=== PATIENT | female | born 1935 | race Caucasian/White ===

== ENCOUNTER 2017-04-08 08:18 | Emergency (ER) | payer MEDICARE, SELFPAY ==
[2017-04-08 08:19] VITALS: BP 147/96; PULSE 98; RESP 18; TEMP 36.5; O2SAT 97; BMI 64.5
--- NOTE | 2017-04-08 08:34 | RAD_ITS ---
STUDY: X-RAY - RIGHT SHOULDER REASON FOR EXAM: Female, 82 years old. Fell last night. Pain. TECHNIQUE: 3 view(s) of the shoulder. COMPARISON: None. FINDINGS: Acute complete fracture of the right femoral neck. No other suspicious acute fracture lines. There are radiopaque anchor hooks in the right humeral head from previous rotator cuff repair. Normal visualized pulmonary apex. RAD/Shoulder min 2 Views IMPRESSION: Acute complete fracture of the right humeral neck. Electronically Signed: Bartolo Resendiz MD at 9:12 EST , Service support ,
[2017-04-08] MEDS: fentaNYL 100 MCG/2 ML Ampul 50 MCG IM (08:42)
[2017-04-08] MEDS: Ondansetron ODT 4 MG Tablet PO (08:42)
--- NOTE | 2017-04-08 09:12 | ED.DCSUM_ITS ---
- ER Visit Summary Date of Service: 04/08/17 Chief Complaint: Fall History of Present Illness: The patient is a [address] Miguel Maradiaga III. She is right-hand dominant. She reports that she fell yesterday and injured her right shoulder. States this was a result of tripping over a rug. She has pain that is 9 out of 10 severity. Patient denies any blow to the head or loss of consciousness. No neck, back, wrist, or hip pain. She is not on blood thinners. Physical Examination: Vitals: Stable. Afebrile. Neck: No vertebral tenderness. Full ROM without difficulty. Cleared by NEXUS criteria. Back: No vertebral tenderness. General: A&O x 3. NAD. Cardiovascular exam: Regular rate and rhythm, no murmur, rub or gallop. Respiratory exam: Chest nontender. No crepitus. Clear to auscultation bilaterally. No wheezes or stridor. Abdominal exam: Soft, nontender, nondistended, normal bowel sounds. No pain in RUQ or LUQ specifically. No peritoneal signs. Extremity: Moderate tenderness palpation over her right shoulder. Decreased range of motion secondary to pain. She is neurovascular intact distal to this.. Test Results: X-ray shows a fracture of the surgical neck without dislocation. Emergency Department Course and Treatment: Patient was treated fentanyl IM and Zofran p.o. She was placed in a sling. Treatment Plan: Patient will be discharged instructions to follow-up Dr. Pabon in 1 week for another exam. She will be placed on [place] and Colace at home. Disposition: To home in improved and stable condition. Impression: 1. Fall. 2. Right proximal humerus fracture. This note was generated with [employer] dictation software. It may contain incorrect words, spelling, and punctuation that were not noted in review of the chart prior to signing ED Disposition - Plan for ED Patient: Chief Complaint: Upper Extremity Injury Instructions: ED Fx Shoulder Prescriptions: Hydrocodone Bitart/Apap 5-325 [[place] 5/325] 1 - 2 tablet PO Q4H PRN PRN 5 Days # 20 tablet PRN Reason: Pain Docusate Sodium [Colace] 100 mg PO DAILY #20 capsule Referrals: Scooby Pabon MD [STAFF PHYSICIAN] - 5-7 Days
[2017-04-08 10:20] VITALS: BP 125/77; PULSE 68; RESP 15; O2SAT 98
== END 2017-04-08 10:21 | disposition home or self-care (01) ==
LOC: ED 09:40
PROVIDERS: Emergency Provider Emergency Medicine; Family Provider Family Medicine; PCP Family Medicine
DX: S42.211A Unspecified displaced fracture of surgical neck of right humerus, initial encounter for closed fracture (principal); W18.09XA Striking against other object with subsequent fall, initial encounter; Y93.9 Activity, unspecified; Y92.9 Unspecified place or not applicable; Y99.9 Unspecified external cause status; I10 Essential (primary) hypertension; M19.90 Unspecified osteoarthritis, unspecified site; Z79.899 Other long term (current) drug therapy
CPT/HCPCS: 73030; 96372; 99283

== ENCOUNTER 2017-04-17 06:49 | Inpatient (IN) | payer MEDICARE, SELFPAY ==
[2017-04-17] VITALS (8 sets, daily range): BP systolic 112–136; BP diastolic 56–73; PULSE 61–100; RESP 16–18; TEMP 36.2–36.9; O2SAT 91–97; BMI 31.5; BMI 34.4; BMI 34.5
--- NOTE | 2017-04-17 07:15 | EKG12_ITS ---
Test Reason : PRE OP Blood Pressure : / mmHG Vent. Rate : 068 BPM Atrial Rate : 068 BPM P-R Int : 154 ms QRS Dur : 116 ms QT Int : 390 ms P-R-T Axes : 068 -33 020 degrees QTc Int : 414 ms Sinus rhythm with marked sinus arrhythmia Left axis deviation Left ventricular hypertrophy with QRS widening Abnormal ECG Confirmed by JUDY WELLS, JENI ([id number]), editor continuity and script NAV PURDY ([id number]) on 04/20/2017 2:11:43 PM Referred By: Scooby Pabon Confirmed By:JENI KIM MD
[2017-04-17] MEDS: Acetaminophen 500 MG Tablet 1000 MG PO ×3 (08:02→22:26)
[2017-04-17] MEDS: oxyCODONE HCl Cr 10 MG Tablet PO (08:02)
[2017-04-17] MEDS: Celecoxib 200 MG Capsule 400 MG PO (08:03)
--- NOTE | 2017-04-17 09:00 | SHO_PTH ---
PATIENT: MACIE WALLS LOC: MS3 U#:[id number] AGE/SX: 82/F ROOM: [facility] [place] RE04/17/[address]: Dr. Scooby Pabon MD : [id number] BED: 1 DIS: 04/20/2017 SPEC #: [id number] RECD: 04/17/17 11:44 STATUS: ALESIA REBrianna #: [id number] GIL: 04/17/17 09:[address]: Scooby Pabon DEPT: SURGICAL PATHOLOGY RECD BY: Yan Escamilla ENTERED: 04/17/17 14:20 SP TYPE: HUMERUS OTHR DR: Dr. Miguel Maradiaga III, MD Tissues: Humerus, NOS Procedures: Decalcification bone/plaque Surgery Specimen Level IV HEADER OPERATION: Total shoulder replacement, reverse PRE-OP DIAGNOSIS: Right humeral neck fracture TISSUE SUBMITTED: Right shoulder bone and tissue MICROSCOPIC DIAGNOSIS Right shoulder bone and tissue: Humeral head with focal area of hemorrhage, right humeral neck fracture. SJ:shira 04/20/17 MICROSCOPIC DESCRIPTION Slides are reviewed. GROSS DESCRIPTION Received in fixative is one container labeled with the patient's name and designated right shoulder bone and tissue. The specimen consists of a humeral head measuring 4.5 x 4 x 3 cm. The articular surface shows focal area of erosion. A small amount of soft tissue is noted attached to the humeral head measuring 3 x 2 x 1 cm. The resection margin is irregular and hemorrhagic. Electrical Engineering Teacher sections are submitted in two cassettes as follows: 1 ? humeral head after decalcification, 2 ? soft tissue. / JIE:shira 04/17/17 TC:5 CPT: 75828, 48118
[2017-04-17] MEDS: Cefazolin 2 GM in 0.9% Normal Saline 100 ML IV (09:21)
[2017-04-17 10:09] LABS: M R Staph aureus DNA By PCR Negative (Negative)
[2017-04-17 10:10] LABS: Probe Check PASS; Specimen Processing Control PASS
--- NOTE | 2017-04-17 11:00 | OP.PCM_ITS ---
Report of Operation Date of Procedure: 04/17/17 Pre-Operative Diagnosis: Right 4 part proximal humerus fracture Post-Operative Diagnosis: Right 4 part proximal humerus fracture Surgery/Procedure Performed:: Right Reverse Total shoulder arthroplasty Description of Surgical Findings:: chronic rotator cuff tear stable shoulder barrel cap setter: Shivam Cartagena Type of Anesthesia:: General/Regional Anesthesiologist: Lewis Caruso Special Medications: 2 g Ancef, 1 g TXA at incision, 1 g TXA closure, 10 mg Decadron, joint cocktail (5 mg Duramorph, 30 mL of 0.5% Ropivicaine, 1000 units of epinephrine, 30 mg of Toradol), 1 g vancomycin at incision Specimen's removed: Bony fracture fragments and humeral head Estimated Blood Loss (mL): 150 Fluids Replaced: 1000 ml crystalloid Description of Procedure: Components used 1. Sandy glenoid baseplate with 24 mm central screw 2. Sandy reunion 32 mm +6 mm clonus fear 3. Sandy 32 mm +4 mm humeral liner 4. Sandy size 8 mm reunion fracture stem 5. [place] Reunion 32 mm +4 mm humeral cup Brief history/Operative indications: 82 yo f with history of four-part proximal humerus fracture and chronic rotator cuff tear. After discussion of risk and benefits of reverse total shoulder replacement including but not limited to blood loss, DVTs, PEs, nerve vessel damage, infection, general risk of anesthesia including loss of life, instability and stiffness patient demonstrating understanding wish to proceed was able to sign informed consent. Medical clearance was obtained. Procedure: On the date of the procedure, patient's r upper extremity was marked in the preoperative area. Patient was taken back to the operating room where they were placed on the table in the supine position. Anesthesia assumed control of the C-spine and airway, then administered anesthetic. All bony prominences were identified well-padded, the head was secured and the patient was placed in the beachchair position at about 35? inclination. Anesthesia remained in control of the C-spine airway throughout the remainder of the procedure. Patient was then appropriately fastened to the table and the r upper extremity was prepped in a sterile fashion. The surgeons then scrubbed. Upon reentering the room, the r upper extremity was draped in a sterile fashion and the incision was marked out. Timeout was called, everyone agreed upon the side, the site, the procedure to be performed, patient identity and antibiotics given. Incision was taken down through skin and subcutaneous tissue, fat down to fascia. The stripe of the deltopectoral interval and cephalic vein were identified and blunt dissection was used to retract the deltoid. The cephalic vein was retracted laterally. Clavipectoral fascia was then incised and a cobra retractor was placed in the wound. The proximal one third of the pectoralis major insertion was released. Pectoralis tendon insertion was used to tenodesed the biceps tendon which was identified in the bicipital groove. Tenodesis was done with #1 Vicryl. Proximally we followed the biceps tendon after transecting it into the rotator interval. At this time we were able to identify the large humeral head fracture fragment we made an osteotomy in order to create a lesser tuberosity fragment. The head fragment was removed and it was noted that there is no supraspinatus or infraspinatus attachments to bone. We released down the anterior portion of the humeral head and a fofana elevator was used to release the inferior portion of the humeral head. The arm was externally rotated and the shoulder was dislocated. The humerus was retracted out of the way and the glenoid was exposed. After exposing the glenoid, the labrum and the remaining proximal biceps were debrided. At this time we are able to view the entire outer edge of the glenoid. A central pin was placed we sequentially reamed over this central pin to 32mm. Once this was completed the screw was used to fix the glenoid baseplate into place. Wound was closely irrigated out with normal saline we then drilled sequentially for 2 screws. Screws were placed superiorly and inferiorly and tightened down the screws. Then anteriorly and posteriorly. Once the screws were appropriately tightened into place the glenoid baseplate was compressed against the exposed subchondral bone. Locking caps were placed and a 32 mm +6 mm glenosphere was impacted into place engaging the [place] taper. The central screw was then tightened into place. Attention was then turned towards the humerus. The humerus was again externally rotated exposing the proximal portion of the humerus. Central canal finder was then used to open up the canal. We reamed to a 13mm reamer. We then broached to a 8mm stem. We trialed the 4mm liner, with the 4mm humeral baseplate. We obtained an adequate reduction at this time with a nice stable shoulder. Good internal rotation to the gluteus, forward elevation to 140?, external rotation to 20?. Final components were then assembled on the back table, trials were removed and the wound was copiously irrigated with normal saline after dislocating the shoulder. Once the final components were assembled they were impacted into place. As noted at this time there was a small calcar crack. A 1.6 mm cerclage wire was placed around this and everything was stable and well fixed. Shoulder was then reduced and found to be stable with good range of motion. Tuberosities could not be repaired. 1 L of normal saline was copiously lavaged throughout the joint. The deltopectoral fascia was then closed using #1 Vicryl skin was closed using 2-0 Vicryl interrupted sutures and final skin closure was done with 3-0 Monocryl. Steri- Strips are placed for final skin closure. Sterile dressing was placed patient was then placed in a sling and awakened by anesthesia. Patient was then transferred to the PACU for recovery. Postoperative plan: Patient will be admitted to the hospital overnight. They will get physical therapy starting in 2 weeks with normal postoperative regimen. Patient will be placed on 325 mg aspirin daily for DVT prophylaxis. The first postoperative appointment will be in 2 weeks for wound check and initiation of phase 1 physical therapy. During the course of the procedure the physician assistant statistician played a vital role. His intimate knowledge of my steps in the procedure aided in safe and expedient completion of the procedure. The PA played a vital rolls in positioning particularly in obtaining the appropriate beach chair position and securing the patient's body and head to the table. The PA was also vital in the retraction of soft tissues during the exposure and especially the glenoid work as this is a vital part of the procedure to prevent neurovascular damage. the PA was also vital and protecting soft tissues during times of bony cuts and reaming. He also played a vital role in closure with my direct supervision. The PA was also important during reduction and dislocation of the joint and trials intraoperatively. Grafts/Implants Used: sandy renuin fracture stem - Complications calcar crack - Admit VTE Documentation VTE Present on Admission: No VTE Mechan Device Prophylaxis: SCD's, Knee High VENTURA Hose VTE Pharm Prophylaxis ordered?: Yes
--- NOTE | 2017-04-17 13:14 | RAD_ITS ---
STUDY: X-RAY - RIGHT SHOULDER REASON FOR EXAM: Female, 82 years old. Shoulder arthroplasty. TECHNIQUE: Single frontal view(s) of the shoulder. COMPARISON: Comparison is made with prior study dated April 08, 2017. FINDINGS: The patient is status post right reverse shoulder replacement. There is good alignment. Postoperative soft tissue changes. RAD/Shoulder One View IMPRESSION: Status post right reverse shoulder replacement. There is good alignment. Electronically Signed: Shola Kramer MD at 13:44 EDT Tel [phone], Service support ,
--- NOTE | 2017-04-17 16:34 | CASEMGMT ---
Social Work Received message from RN that pt is requesting SNF placement post accute stay and [facility] is first choice and [facility] is second. VM left with Maryellen in TCU to check bed availability. SW ill followup tomorrow with Maryellen and with pt. BENEDICTO Pham
[2017-04-17] MEDS: Ferrous Sulfate 325 MG Tablet PO (16:44)
[2017-04-17] MEDS: Famotidine 20 MG Tablet PO (16:44)
[2017-04-17] MEDS: Cefazolin 1 GM/50 ML BAG IV (16:44)
[2017-04-17] MEDS: Folic Acid 1 MG Tablet PO (16:45)
--- NOTE | 2017-04-17 17:39 | NURSING ---
lab notified of stat lab draw
[2017-04-17 18:22] LABS: Anion Gap 9 (5-15); BUN 13 mg/dL (7-18); BUN/Creat Ratio 16.8 RATIO (10-20); Calcium,Total 8.6 mg/dL (8.5-10.1); Chloride 104 mmol/L (98-107); Creatinine, Serum 0.77 mg/dL (0.55-1.02); EST Glomerular Filtration Rate 76 mL/min (>60); Est Glom Filt Rate - Afr Amer 92 mL/min (>60); Estimated Creatinine Clearance 52.08 ml/min; Glucose 217 mg/dL (74-106); Sodium Level 139 mmol/L (136-145)
[2017-04-17] MEDS: Lactated Ringers 1,000 ML 90 ML IV (22:25)
[2017-04-18] MEDS: Cefazolin 1 GM/50 ML BAG IV (01:12)
[2017-04-18 04:25] VITALS: BP 111/47; PULSE 75; RESP 18; TEMP 36.9; O2SAT 93
[2017-04-18] MEDS: Acetaminophen 500 MG Tablet 1000 MG PO ×3 (06:13→22:23)
--- NOTE | 2017-04-18 06:52 | PCM.PN.ORT ---
Subjective: The patient was sitting in right reverse total shoulder arthroplasty secondary to four-part humerus fracture upon examination. Patient denies any chest pain, shortness of breath, dizziness, lightheadedness, nausea or vomiting, or calf pain. Pain is controlled on medications. No adverse overnight events. Patient states she lives at home and will have a difficult time taking care of herself. Patient is wishing to go to transitional care unit or [facility] facility. Objective: Dressing is C/D/I Ultra-sling fitting appropriately Sensation intact to axillary, radial, median, and ulnar distribution Motor intact to AIN, PIN, and ulnar nerve - Physical Exam General: Alert, Oriented x3, Cooperative, No apparent distress Vital Signs Temp Pulse Resp BP Pulse Ox 98.4 F 75 18 111/47 L 93 04/18/17 04:25 04/18/17 04:25 04/18/17 04:25 04/18/17 04:25 04/18/17 04:25 Oxygen Delivery Method Room Air Weight: 77.4 kg Body Mass Index (BMI) 34.4 Intake and Output for Last 24 Hours 04/16/17 04/17/17 04/18/17 23:59 23:59 23:59 Intake Total 2053 / 2053 1383 / 1383 Output Total 1050 / 1050 700 / 700 Balance 1003 / 1003 683 / 683 Laboratory Tests Past 24 Hrs 04/17/17 04/17/17 08:00 17:51 Sodium 139 Potassium 4.0 Chloride 104 Carbon Dioxide 26.0 Anion Gap 9 BUN 13 Creatinine 0.77 Estim Creat Clear Calc 52.08 Est GFR (MDRD) Af Amer 92 Est GFR (MDRD) Non-Af 76 BUN/Creatinine Ratio 16.8 Glucose 217 H Calcium 8.6 MRSA (PCR) Negative Assessment/Plan 1. S/P right reverse total shoulder arthroplasty secondary to right 4 part proximal humerus fracture POD #1 2. Continue Pain Medications: Tylenol and OxyIR 3. DVT Prophylaxis: Aspirin 4. PT/OT: Continue with UltraSling. Reverse tsa PROM ER-neutral, Forward elevation- 70, ABD- 70 5. Encouraged Incentive Spirometry 6. Disposition: We will have case management see patient today. Patient will need placement at transitional care unit or [facility] facility due to living home alone and will have difficult time taking care of herself.
--- NOTE | 2017-04-18 06:58 | PN.ORTHO_ITS ---
Subjective: The patient was sitting in right reverse total shoulder arthroplasty secondary to four-part humerus fracture upon examination. Patient denies any chest pain, shortness of breath, dizziness, lightheadedness, nausea or vomiting, or calf pain. Pain is controlled on medications. No adverse overnight events. Patient states she lives at home and will have a difficult time taking care of herself. Patient is wishing to go to transitional care unit or [facility] facility. Objective: Dressing is C/D/I Ultra-sling fitting appropriately Sensation intact to axillary, radial, median, and ulnar distribution Motor intact to AIN, PIN, and ulnar nerve - Physical Exam General: Alert, Oriented x3, Cooperative, No apparent distress Vital Signs Temp Pulse Resp BP Pulse Ox 98.4 F 75 18 111/47 L 93 04/18/17 04:25 04/18/17 04:25 04/18/17 04:25 04/18/17 04:25 04/18/17 04:25 Oxygen Delivery Method Room Air Weight: 77.4 kg Body Mass Index (BMI) 34.4 Intake and Output for Last 24 Hours 04/16/17 04/17/17 04/18/17 23:59 23:59 23:59 Intake Total 2053 / 2053 1383 / 1383 Output Total 1050 / 1050 700 / 700 Balance 1003 / 1003 683 / 683 Laboratory Tests Past 24 Hrs 04/17/17 04/17/17 08:00 17:51 Sodium 139 Potassium 4.0 Chloride 104 Carbon Dioxide 26.0 Anion Gap 9 BUN 13 Creatinine 0.77 Estim Creat Clear Calc 52.08 Est GFR (MDRD) Af Amer 92 Est GFR (MDRD) Non-Af 76 BUN/Creatinine Ratio 16.8 Glucose 217 H Calcium 8.6 MRSA (PCR) Negative Assessment/Plan 1. S/P right reverse total shoulder arthroplasty secondary to right 4 part proximal humerus fracture POD #1 2. Continue Pain Medications: Tylenol and OxyIR 3. DVT Prophylaxis: Aspirin 4. PT/OT: Continue with UltraSling. Reverse tsa PROM ER-neutral, Forward elevation- 70, ABD- 70 5. Encouraged Incentive Spirometry 6. Disposition: We will have case management see patient today. Patient will need placement at transitional care unit or [facility] facility due to living home alone and will have difficult time taking care of herself.
[2017-04-18 08:52] VITALS: BP 106/44; PULSE 79; RESP 16; TEMP 36.6; O2SAT 94
[2017-04-18] MEDS: Ferrous Sulfate 325 MG Tablet PO ×2 (09:09→17:32)
[2017-04-18] MEDS: Folic Acid 1 MG Tablet PO ×2 (09:09→17:32)
[2017-04-18] MEDS: Aspirin 325 MG Tablet PO (09:09)
[2017-04-18] MEDS: Famotidine 20 MG Tablet PO (09:09)
--- NOTE | 2017-04-18 10:10 | CASEMGMT ---
Social Work Met with pt in room and introduced self and role of SW. Pt lives alone in a one story home with two steps in. Prior to fall and fracture, pt was independent with ADLs and IADLs. Pt has two sons who live locally and are supportive however, pt does not feel she can return home alone at this time. Pt would like to go to TCU for rehab prior to return home. Pt demographics and PCP confirmed. Pt uses [facility] pharmacy. Pt does have a HCPOA which names her son Adria Rivas but pt does not have a copy on file. SW requested pt would bring this in. Pt does have a living will and has provided a copy for her medical record. Pt in February 2017. SW discussed this loss with pt and provided emotional support. Spoke with Maryellen in TCU and there is a bed available in TCU on Sunday and they are able to accept pt. Precert is needed prior to discharge to TCU. Pt made aware. Plan: TCU, pending insurance BENEDICTO Rosen
[2017-04-18 14:27] VITALS: BP 122/55; PULSE 71; RESP 16; TEMP 36.7; O2SAT 95
[2017-04-18 20:00] VITALS: BP 126/50; PULSE 89; RESP 18; TEMP 36.6; O2SAT 96
[2017-04-19] MEDS: Acetaminophen 500 MG Tablet 1000 MG PO ×3 (05:14→22:27)
[2017-04-19 05:15] VITALS: BP 133/66; PULSE 64; RESP 16; TEMP 36.4; O2SAT 95
[2017-04-19 09:42] VITALS: BP 121/45; PULSE 66; RESP 16; TEMP 36.6; O2SAT 95
[2017-04-19] MEDS: Folic Acid 1 MG Tablet PO ×2 (09:45→17:52)
[2017-04-19] MEDS: Famotidine 20 MG Tablet PO (09:45)
[2017-04-19] MEDS: Ferrous Sulfate 325 MG Tablet PO ×2 (09:45→17:52)
[2017-04-19] MEDS: Aspirin 325 MG Tablet PO (09:45)
--- NOTE | 2017-04-19 11:10 | PCM.PN.ORT ---
Subjective: The patient was sitting in bed upon examination. Patient denies any chest pain, shortness of breath, dizziness, lightheadedness, nausea or vomiting, or calf pain. Pain is controlled on medications. No adverse overnight events. Plan is for discharge tomorrow to transitional care unit at [facility].. Objective: Dressing is C/D/I Ultra-sling fitting appropriately Sensation intact to axillary, radial, median, and ulnar distribution Motor intact to AIN, PIN, and ulnar nerve - Physical Exam General: Alert, Oriented x3, Cooperative, No apparent distress Vital Signs Temp Pulse Resp BP Pulse Ox 97.8 F 66 16 121/45 H 95 04/19/17 09:42 04/19/17 09:42 04/19/17 09:42 04/19/17 09:42 04/19/17 09:42 Oxygen Delivery Method Room Air Weight: 77.4 kg Body Mass Index (BMI) 34.4 Intake and Output for Last 24 Hours 04/17/17 04/18/17 04/19/17 23:59 23:59 23:59 Intake Total 2053 / 2053 1383 / 1383 1200 / 1200 Output Total 1050 / 1050 700 / 700 1900 / 1900 Balance 1003 / 1003 683 / 683 -700 / -700 Assessment/Plan 1. S/P right reverse total shoulder arthroplasty secondary to right 4 part proximal humerus fracture POD #2 2. Continue Pain Medications: Tylenol and OxyIR 3. DVT Prophylaxis: Aspirin 4. PT/OT: Continue with UltraSling. Reverse tsa PROM ER-neutral, Forward elevation- 70, ABD- 70 5. Encouraged Incentive Spirometry 6. Disposition: Plan is for discharge to transitional care unit at [facility] tomorrow.
--- NOTE | 2017-04-19 11:15 | PCM.DC.ORTHO ---
Discharge Diet: No Restrictions Discharge Activity: May Not Drive May shower in (days): 1 Ice area for (Minutes): 20 - Ice area for 20 minutes each hour while awake Weight Bearing Status: No weight bearing - Right upper extremity Call your doctor if your incision/area has: Continuous Slow Oozing, Sudden Increased Bleeding, Increased Pain/ Swelling, Increased Redness, Foul Smelling Discharge Call your doctor if you observe: Fever of 101 or Higher, Coldness, Increased Pain, Numbness or Tingling, Change in Color Remove Dressing in (days):: 2 - Okay to remove dressing on April 22, 2017 Additional Instructions: Follow [facility] postop instructions Patient is to continue with UltraSling at all times for 2 weeks. It is okay for patient to come out 3-4 times daily to work on elbow, wrist, hand range of motion. Okay to work on pendulum exercises. We will start scheduled therapy after 2 week visit. Allergies/Adverse Reactions: Allergies No Known Allergies Allergy (Verified 04/16/17 11:35) Medications to take at Discharge Lisinopril [Zestril] 5 mg PO DAILY 04/08/17 Cholecalciferol (Vitamin D3) [Vitamin D3] 4,000 unit PO DAILY 04/16/17 Acetaminophen [Tylenol] 1,000 mg PO Q8 #90 tab 04/19/17 Aspirin 325 mg PO DAILY@0800 #30 tab 04/19/17 Famotidine [Pepcid] 20 mg PO DAILY #14 tab 04/19/17 Oxycodone [Oxyir] 5 - 10 mg PO Q4H PRN PRN 5 Days #60 tab 04/19/17 Senna/Docusate Sodium [Senokot-S] 2 tablet PO BID PRN PRN 5 Days tablet 04/19/17 The following prescriptions were given: Oxycodone [Oxyir] 5 - 10 mg PO Q4H PRN PRN 5 Days #60 tab PRN Reason: Pain Acetaminophen [Tylenol] 1,000 mg PO Q8 #90 tab Aspirin 325 mg PO DAILY@0800 #30 tab Famotidine [Pepcid] 20 mg PO DAILY #14 tab Primary Care Physician: Miguel Maradiaga III, MD [Primary Care Provider] - Please Follow Up With: Shivam Cartagena PA-C When: 04/30/17 @ 2:00 pm
--- NOTE | 2017-04-19 16:48 | CASEMGMT ---
Social Work Received phone call from Maryellen in TCU and pt has been approved by insurance. Pt can transfer to TCU on Sunday. Pt notified and in agreement. Plan: TCU on Sunday BENEDICTO Pham
[2017-04-19 20:30] VITALS: O2SAT 96
[2017-04-19 20:38] VITALS: BP 112/45; PULSE 66; RESP 18; TEMP 36.3; O2SAT 96
[2017-04-20 02:12] VITALS: BP 140/71; PULSE 64; RESP 18; TEMP 36.7; O2SAT 96
[2017-04-20] MEDS: Acetaminophen 500 MG Tablet 1000 MG PO ×2 (06:09→14:48)
--- NOTE | 2017-04-20 06:30 | PCM.PN.ORT ---
Subjective: Patient is doing well this morning. She is resting comfortably in bed. She has been awaiting her 3 night stay to be transitioned to the transitional care unit/jail facility here at the hospital. She has met that requirement is ready for discharge today. Her pain is well controlled and she is comfortable. She is resting in her sling. Denies any chest pain or shortness of breath. No calf pain. No numbness or tingling in the distal extremity. Objective: Right shoulder postoperative radiograph stable well-placed right reverse total shoulder replacement. - Physical Exam General: Alert, Oriented x3, Cooperative Extremities: - - Right upper extremity: Slings in place, dressing is clean and dry. Sensations intact light touch axillary/R/M/U. Motor is intact R/M/U. Ecchymosis and contusion on the forearm. Erythema on the forearm. No erythema around incision. Vital Signs Temp Pulse Resp BP Pulse Ox 98.1 F 64 18 140/71 H 96 04/20/17 02:12 04/20/17 02:12 04/20/17 02:12 04/20/17 02:12 04/20/17 02:12 Oxygen Delivery Method Room Air Weight: 170 lb 10.205 oz Body Mass Index (BMI) 34.4 Intake and Output for Last 24 Hours 04/18/17 04/19/17 04/20/17 23:59 23:59 23:59 Intake Total 1383 / 1383 1200 / 1200 800 / 800 Output Total 700 / 700 1900 / 1900 1150 / 1150 Balance 683 / 683 -700 / -700 -350 / -350 Assessment/Plan Postop day 3 right reverse total shoulder arthroplasty for proximal humerus fracture. 1. DVT prophylaxis: Aspirin daily 2. Occupational Therapy: Continue to work on ADLs, hold physical therapy until 2 weeks postoperatively. 3. Pain control: Pain currently under control continue current regimen. 4. Disposition: Discharged to jail facility today. [facility] Office:
--- NOTE | 2017-04-20 06:34 | PN.ORTHO_ITS ---
Subjective: Patient is doing well this morning. She is resting comfortably in bed. She has been awaiting her 3 night stay to be transitioned to the transitional care unit/penitentiary facility here at the hospital. She has met that requirement is ready for discharge today. Her pain is well controlled and she is comfortable. She is resting in her sling. Denies any chest pain or shortness of breath. No calf pain. No numbness or tingling in the distal extremity. Objective: Right shoulder postoperative radiograph stable well-placed right reverse total shoulder replacement. - Physical Exam General: Alert, Oriented x3, Cooperative Extremities: - - Right upper extremity: Slings in place, dressing is clean and dry. Sensations intact light touch axillary/R/M/U. Motor is intact R/M/U. Ecchymosis and contusion on the forearm. Erythema on the forearm. No erythema around incision. Vital Signs Temp Pulse Resp BP Pulse Ox 98.1 F 64 18 140/71 H 96 04/20/17 02:12 04/20/17 02:12 04/20/17 02:12 04/20/17 02:12 04/20/17 02:12 Oxygen Delivery Method Room Air Weight: 170 lb 10.205 oz Body Mass Index (BMI) 34.4 Intake and Output for Last 24 Hours 04/18/17 04/19/17 04/20/17 23:59 23:59 23:59 Intake Total 1383 / 1383 1200 / 1200 800 / 800 Output Total 700 / 700 1900 / 1900 1150 / 1150 Balance 683 / 683 -700 / -700 -350 / -350 Assessment/Plan Postop day 3 right reverse total shoulder arthroplasty for proximal humerus fracture. 1. DVT prophylaxis: Aspirin daily 2. Occupational Therapy: Continue to work on ADLs, hold physical therapy until 2 weeks postoperatively. 3. Pain control: Pain currently under control continue current regimen. 4. Disposition: Discharged to penitentiary facility today. [facility] Office:
--- NOTE | 2017-04-20 07:25 | PCM.DC.SUM ---
Discharge Date and Diagnosis Date of Admission: 04/17/17 Date of Discharge: 04/20/17 - Primary Discharge Diagnosis Right reverse total shoulder arthroplasty secondary to four-part right proximal humerus fracture - Secondary Discharge Diagnosis Hypertension Hospital Course and Treatment Summary of Care Provided: Patient is a 82-year-old male who sustained a four-part proximal humerus fracture and has chronic rotator cuff tear.. After discussion with Dr. Pabon, the patient opted to proceed with a right reverse total shoulder arthroplasty. The patient underwent the above-stated procedure on April 17, 2017. Patient did receive perioperative antibiotics. Intraoperatively was uneventful. For details please see dictated operative note. The patient was placed in thigh-high teds, bilateral SCDs, remained stable in recovery. Patient was admitted to the 3rd floor at [facility]. The patient's pain was managed with the use of IV and p.o. pain medications. Patient is currently in UltraSling on the right upper extremity at all times until postoperative follow-up. Okay to work on elbow, wrist, hand range of motion. Patient participated in physical therapy and Occupational Therapy. Patient was discharged on postoperative day #3 to transitional care unit at [facility]. Patient was given medications stated below. Patient will follow up with [facility] per postop instructions for reassessment. Discharge Diet: No Restrictions Discharge Activity: May Not Drive May shower in (days): 1 Ice area for (Minutes): 20 - Ice area for 20 minutes each hour while awake Weight Bearing Status: No weight bearing - Right upper extremity Call your doctor if your incision/area has: Continuous Slow Oozing, Sudden Increased Bleeding, Increased Pain/ Swelling, Increased Redness, Foul Smelling Discharge Call your doctor if you observe: Fever of 101 or Higher, Coldness, Increased Pain, Numbness or Tingling, Change in Color Remove Dressing in (days):: 2 - Okay to remove dressing on April 22, 2017 Home Medications: Medications to take at Discharge Lisinopril [Zestril] 5 mg PO DAILY 04/08/17 Cholecalciferol (Vitamin D3) [Vitamin D3] 4,000 unit PO DAILY 04/16/17 Acetaminophen [Tylenol] 1,000 mg PO Q8 #90 tab 04/19/17 Aspirin 325 mg PO DAILY@0800 #30 tab 04/19/17 Famotidine [Pepcid] 20 mg PO DAILY #14 tab 04/19/17 Oxycodone [Oxyir] 5 - 10 mg PO Q4H PRN PRN 5 Days #60 tab 04/19/17 Senna/Docusate Sodium [Senokot-S] 2 tablet PO BID PRN PRN 5 Days tablet 04/19/17 Following Prescrptions Were Given to Patient: Oxycodone [Oxyir] 5 - 10 mg PO Q4H PRN PRN 5 Days #60 tab PRN Reason: Pain Acetaminophen [Tylenol] 1,000 mg PO Q8 #90 tab Aspirin 325 mg PO DAILY@0800 #30 tab Famotidine [Pepcid] 20 mg PO DAILY #14 tab Primary Care Physician: Miguel Maradiaga III, MD [Primary Care Provider] - Please Follow Up With: Shivam Cartagena PA-C When: 04/30/17 @ 2:00 pm Additional Instructions: Follow [facility] postop instructions Patient is to continue with UltraSling at all times for 2 weeks. It is okay for patient to come out 3-4 times daily to work on elbow, wrist, hand range of motion. Okay to work on pendulum exercises. We will start scheduled therapy after 2 week visit. Meaningful Use Info Meaningful Use Diagnoses (Choose all that apply): None applicable
--- NOTE | 2017-04-20 07:29 | DS.PCM_ITS ---
Discharge Date and Diagnosis Date of Admission: 04/17/17 Date of Discharge: 04/20/17 - Primary Discharge Diagnosis Right reverse total shoulder arthroplasty secondary to four-part right proximal humerus fracture - Secondary Discharge Diagnosis Hypertension Hospital Course and Treatment Summary of Care Provided: Patient is a 82-year-old male who sustained a four-part proximal humerus fracture and has chronic rotator cuff tear.. After discussion with Dr. Pabon, the patient opted to proceed with a right reverse total shoulder arthroplasty. The patient underwent the above-stated procedure on April 17, 2017. Patient did receive perioperative antibiotics. Intraoperatively was uneventful. For details please see dictated operative note. The patient was placed in thigh-high teds, bilateral SCDs, remained stable in recovery. Patient was admitted to the 3rd floor at [facility]. The patient's pain was managed with the use of IV and p.o. pain medications. Patient is currently in UltraSling on the right upper extremity at all times until postoperative follow-up. Okay to work on elbow, wrist, hand range of motion. Patient participated in physical therapy and Occupational Therapy. Patient was discharged on postoperative day #3 to transitional care unit at [facility]. Patient was given medications stated below. Patient will follow up with [facility] per postop instructions for reassessment. Discharge Diet: No Restrictions Discharge Activity: May Not Drive May shower in (days): 1 Ice area for (Minutes): 20 - Ice area for 20 minutes each hour while awake Weight Bearing Status: No weight bearing - Right upper extremity Call your doctor if your incision/area has: Continuous Slow Oozing, Sudden Increased Bleeding, Increased Pain/ Swelling, Increased Redness, Foul Smelling Discharge Call your doctor if you observe: Fever of 101 or Higher, Coldness, Increased Pain, Numbness or Tingling, Change in Color Remove Dressing in (days):: 2 - Okay to remove dressing on April 22, 2017 Home Medications: Medications to take at Discharge Lisinopril [Zestril] 5 mg PO DAILY 04/08/17 Cholecalciferol (Vitamin D3) [Vitamin D3] 4,000 unit PO DAILY 04/16/17 Acetaminophen [Tylenol] 1,000 mg PO Q8 #90 tab 04/19/17 Aspirin 325 mg PO DAILY@0800 #30 tab 04/19/17 Famotidine [Pepcid] 20 mg PO DAILY #14 tab 04/19/17 Oxycodone [Oxyir] 5 - 10 mg PO Q4H PRN PRN 5 Days #60 tab 04/19/17 Senna/Docusate Sodium [Senokot-S] 2 tablet PO BID PRN PRN 5 Days tablet Following Prescrptions Were Given to Patient: Oxycodone [Oxyir] 5 - 10 mg PO Q4H PRN PRN 5 Days #60 tab PRN Reason: Pain Acetaminophen [Tylenol] 1,000 mg PO Q8 #90 tab Aspirin 325 mg PO DAILY@0800 #30 tab Famotidine [Pepcid] 20 mg PO DAILY #14 tab Primary Care Physician: Miguel Maradiaga III, MD [Primary Care Provider] - Please Follow Up With: Shivam Cartagena PA-C When: 04/30/17 @ 2:00 pm Additional Instructions: Follow [facility] postop instructions Patient is to continue with UltraSling at all times for 2 weeks. It is okay for patient to come out 3-4 times daily to work on elbow, wrist, hand range of motion. Okay to work on pendulum exercises. We will start scheduled therapy after 2 week visit. Meaningful Use Info Meaningful Use Diagnoses (Choose all that apply): None applicable
[2017-04-20 08:30] VITALS: BP 149/62; PULSE 71; RESP 16; TEMP 36.9; O2SAT 98
[2017-04-20] MEDS: Aspirin 325 MG Tablet PO (08:52)
[2017-04-20] MEDS: Folic Acid 1 MG Tablet PO (08:52)
[2017-04-20] MEDS: Ferrous Sulfate 325 MG Tablet PO (08:52)
[2017-04-20] MEDS: Famotidine 20 MG Tablet PO (08:52)
--- NOTE | 2017-04-20 09:32 | CASEMGMT ---
Patient is ready for d/c to TCU today. Copied med list and Transfer to Extended Care form. SW notified RN patient is read for d/c to TCU. Sw spoke with patient and let her know she is ready for d/c to TCU today. SW told her RN will call report and see when they are ready for her. Plan: [facility] TCU under skilled level of care. Lissa STOVER MSW
[2017-04-20 14:45] VITALS: BP 158/77; PULSE 67; RESP 16; TEMP 36.6; O2SAT 99
== END 2017-04-20 14:55 | disposition skilled nursing facility (03) | DRG 483 ==
LOC: ACINP 06:50 → MS3 08:22
PROVIDERS: Admitting Provider Specialist; Family Provider Family Medicine; PCP Family Medicine; Visit Provider Specialist
PROC: 0RRJ00Z Replacement of Right Shoulder Joint with Reverse Ball and Socket Synthetic Substitute, Open Approach (ICD-10-PCS; CPT 23472; principal; 2017-04-17 08:30)
DX: S42.241A 4-part fracture of surgical neck of right humerus, initial encounter for closed fracture (principal); I10 Essential (primary) hypertension; W01.0XXA Fall on same level from slipping, tripping and stumbling without subsequent striking against object, initial encounter; Y92.019 Unspecified place in single-family (private) house as the place of occurrence of the external cause; Z23 Encounter for immunization; M75.101 Unspecified rotator cuff tear or rupture of right shoulder, not specified as traumatic
CPT/HCPCS: 36415; 73020; 80048; 87641; 88305; 88311; 93005; 97110; 97116; 97162; 97165; 97530; 97535; J7120; 90686

== ENCOUNTER 2017-04-20 15:05 | Inpatient (IN) | payer MEDICARE, SELFPAY ==
[2017-04-20 15:11] VITALS: BP 161/72; PULSE 65; RESP 20; TEMP 36.9; O2SAT 97
[2017-04-20 15:26] VITALS: BMI 33.4
[2017-04-20 15:35] VITALS: BMI 33.5
--- NOTE | 2017-04-20 15:59 | PCM.HP.STD ---
Problem List (1) Fall Status: Acute (2) Closed fracture of right proximal humerus Status: Acute (3) Rotator cuff tear, right Status: Chronic (4) Hypertension Status: Chronic (5) Vitamin D deficiency Status: Chronic (6) GERD (gastroesophageal reflux disease) Status: Chronic (7) Constipation Status: Chronic (8) Osteoarthritis Status: Chronic History of Present Illness Date of Admission: 04/20/17 Chief Complaint: Here for rehabilitation, strengthening, prior to discharge home alone. The patient is a 82 year old Female with below past medical history with followin04/08/2017 [facility] Emergency Department, Fall. Hurt right shoulder. X-ray right humerus showed fracture of surgical neck. Fentanyl, Zofran given. Sling placed. 04/17/2017 Dr. Pabon performed right total shoulder arthroplasty. 04/20/2017 Admit to TCU for rehabilitation, strengthening, prior to discharge home alone. Past Medical History Past Medical History (Chronic Problems): Chronic Problems Rotator cuff tear, right (Chronic) Hypertension (Chronic) Vitamin D deficiency (Chronic) GERD (gastroesophageal reflux disease) (Chronic) Constipation (Chronic) Osteoarthritis (Chronic) Allergies No Known Allergies Allergy (Verified 04/16/17 11:35) Home Medications: Ambulatory Orders Medication Instructions Recorded Lisinopril [Zestril] 5 mg PO DAILY 04/08/17 Cholecalciferol (Vitamin D3) 4,000 unit PO DAILY 04/16/17 [Vitamin D3] Oxycodone [Oxyir] 5 - 10 mg PO Q4H PRN PRN 5 Days 04/19/17 #60 tab Senna/Docusate Sodium [Senokot-S] 2 tablet PO BID PRN PRN 5 Days 04/19/17 tablet Acetaminophen [Tylenol] 1,000 mg PO Q8 04/20/17 Aspirin 325 mg PO DAILY@0800 04/20/17 Famotidine [Pepcid] 20 mg PO DAILY 04/20/17 Surgical History: - - Right reverse total shoulder arthroplasty. 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 Lives: Alone Smoking Status: Never smoker Alcohol: None Drugs: None - *Family History Maternal History Items: No pertinent history Paternal History Items: No pertinent history Review of Systems Constitutional: Denies: Chills, Fever, Weight Change HEENT: Denies: Head Aches, Sinus Congestion, Sinus Drainage Cardiovascular: Denies: Chest Pain, Palpitations Respiratory: Denies: Cough, Shortness of breath at rest, Sputum production Gastrointestinal: Denies: Abdominal Pain, Nausea, Vomiting Genitourinary: Denies: Dysuria Musculoskeletal: Denies: Joint Pain, Joint Tenderness Skin: Denies: Rash, Wounds Neurological: Denies: Numbness, Tingling, Focal weakness Psychiatric: Denies: Anxiety, Depression, Homicidal Ideations, Suicidal Ideations Hematologic/ Lymphatic: Denies: Easy Bruising, Easy Bleeding VTE Information - Inpt Only VTE Present on Admission: No VTE Mechan Device Prophylaxis: Knee High VENTURA Hose VTE Pharm Prophylaxis ordered?: Yes Patient Problems: Active and Suspected Problems Fall (Acute) Closed fracture of right proximal humerus (Acute) - Physical Exam General: Alert, Oriented x3, Cooperative HEENT: Atraumatic, PERRLA, EOMI, Normocephalic Neck: Supple, No JVD, Negative Carotid Bruits Lungs: Clear to auscultation, Normal air movement Cardiovascular: Regular rate, No murmurs Abdomen: Bowel Sounds Present, Soft, Non Tender Extremities: No edema, Capillary Refill Less than 3 Seconds Skin: No rashes, No breakdown Musculoskeletal: No Tenderness to Palpation of Joints or Extremities, - - Right shoulder sling. Neurological: Cranial nerves II-XII grossly intact Psych/Mental Status: Normal Affect, Appropriate Vital Signs Temp Pulse Resp BP Pulse Ox 98.5 F 65 20 H 161/72 H 97 04/20/17 15:11 04/20/17 15:11 04/20/17 15:11 04/20/17 15:11 04/20/17 15:11 Oxygen Delivery Method Room Air Weight: 72.6 kg Body Mass Index (BMI) 33.4 Assessment/Plan Active and Suspected Problems Fall (Acute) Closed fracture of right proximal humerus (Acute) 82 year old female with below past medical history hospitalized for right reverse total shoulder arthroplasty 04/17/[address] Brendan Pabon, admitted to TCU with debility, for rehabilitation, strengthening, prior to discharge home alone. Debility - PT/OT. Pain - Tylenol 1000MG Q8H, Oxycodone 5MG Q4H PRN moderate pain. Bowel - Miralax 17GM daily, Senna/colace 2 tablets BID, Dulcolax 10MG UT daily PRN. Pneumonia vaccination - Administer Prevnar 13 and/or Pneumovax 23 as necessary. DVT prophylaxis - Aspirin 325MG daily. Hypertension - Lisinopril 5MG daily. Vitamin D deficiency - D3 4000IU daily. GERD - Famotidine 20MG BID.
--- NOTE | 2017-04-20 16:09 | HP.PCM_ITS ---
Problem List (1) Fall Status: Acute (2) Closed fracture of right proximal humerus Status: Acute (3) Rotator cuff tear, right Status: Chronic (4) Hypertension Status: Chronic (5) Vitamin D deficiency Status: Chronic (6) GERD (gastroesophageal reflux disease) Status: Chronic (7) Constipation Status: Chronic (8) Osteoarthritis Status: Chronic History of Present Illness Date of Admission: 04/20/17 Chief Complaint: Here for rehabilitation, strengthening, prior to discharge home alone. The patient is a 82 year old Female with below past medical history with followin04/08/2017 [facility] Emergency Department, Fall. Hurt right shoulder. X-ray right humerus showed fracture of surgical neck. Fentanyl, Zofran given. Sling placed. 04/17/2017 Dr. Pabon performed right total shoulder arthroplasty. 04/20/2017 Admit to TCU for rehabilitation, strengthening, prior to discharge home alone. Past Medical History Past Medical History (Chronic Problems): Chronic Problems Rotator cuff tear, right (Chronic) Hypertension (Chronic) Vitamin D deficiency (Chronic) GERD (gastroesophageal reflux disease) (Chronic) Constipation (Chronic) Osteoarthritis (Chronic) Allergies No Known Allergies Allergy (Verified 04/16/17 11:35) Home Medications: Ambulatory Orders Medication Instructions Recorded Lisinopril [Zestril] 5 mg PO DAILY 04/08/17 Cholecalciferol (Vitamin D3) 4,000 unit PO DAILY 04/16/17 [Vitamin D3] Oxycodone [Oxyir] 5 - 10 mg PO Q4H PRN PRN 5 Days 04/19/17 #60 tab Senna/Docusate Sodium [Senokot-S] 2 tablet PO BID PRN PRN 5 Days 04/19/17 tablet Acetaminophen [Tylenol] 1,000 mg PO Q8 04/20/17 Aspirin 325 mg PO DAILY@0800 04/20/17 Famotidine [Pepcid] 20 mg PO DAILY 04/20/17 Surgical History: - - Right reverse total shoulder arthroplasty. 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 Lives: Alone Smoking Status: Never smoker Alcohol: None Drugs: None - *Family History Maternal History Items: No pertinent history Paternal History Items: No pertinent history Review of Systems Constitutional: Denies: Chills, Fever, Weight Change HEENT: Denies: Head Aches, Sinus Congestion, Sinus Drainage Cardiovascular: Denies: Chest Pain, Palpitations Respiratory: Denies: Cough, Shortness of breath at rest, Sputum production Gastrointestinal: Denies: Abdominal Pain, Nausea, Vomiting Genitourinary: Denies: Dysuria Musculoskeletal: Denies: Joint Pain, Joint Tenderness Skin: Denies: Rash, Wounds Neurological: Denies: Numbness, Tingling, Focal weakness Psychiatric: Denies: Anxiety, Depression, Homicidal Ideations, Suicidal Ideations Hematologic/ Lymphatic: Denies: Easy Bruising, Easy Bleeding VTE Information - Inpt Only VTE Present on Admission: No VTE Mechan Device Prophylaxis: Knee High VENTURA Hose VTE Pharm Prophylaxis ordered?: Yes Patient Problems: Active and Suspected Problems Fall (Acute) Closed fracture of right proximal humerus (Acute) - Physical Exam General: Alert, Oriented x3, Cooperative HEENT: Atraumatic, PERRLA, EOMI, Normocephalic Neck: Supple, No JVD, Negative Carotid Bruits Lungs: Clear to auscultation, Normal air movement Cardiovascular: Regular rate, No murmurs Abdomen: Bowel Sounds Present, Soft, Non Tender Extremities: No edema, Capillary Refill Less than 3 Seconds Skin: No rashes, No breakdown Musculoskeletal: No Tenderness to Palpation of Joints or Extremities, - - Right shoulder sling. Neurological: Cranial nerves II-XII grossly intact Psych/Mental Status: Normal Affect, Appropriate Vital Signs Temp Pulse Resp BP Pulse Ox 98.5 F 65 20 H 161/72 H 97 04/20/17 15:11 04/20/17 15:11 04/20/17 15:11 04/20/17 15:11 04/20/17 15:11 Oxygen Delivery Method Room Air Weight: 72.6 kg Body Mass Index (BMI) 33.4 Assessment/Plan Active and Suspected Problems Fall (Acute) Closed fracture of right proximal humerus (Acute) 82 year old female with below past medical history hospitalized for right reverse total shoulder arthroplasty 04/17/[address] Brendan Pabon, admitted to TCU with debility, for rehabilitation, strengthening, prior to discharge home alone. * Debility - PT/OT. * Pain - Tylenol 1000MG Q8H, Oxycodone 5MG Q4H PRN moderate pain. * Bowel - Miralax 17GM daily, Senna/colace 2 tablets BID, Dulcolax 10MG ID daily PRN. * Pneumonia vaccination - Administer Prevnar 13 and/or Pneumovax 23 as necessary. * DVT prophylaxis - Aspirin 325MG daily. * Hypertension - Lisinopril 5MG daily. * Vitamin D deficiency - D3 4000IU daily. * GERD - Famotidine 20MG BID.
--- NOTE | 2017-04-20 18:34 | NURSING ---
arrived from [facility]
[2017-04-20] MEDS: Acetaminophen 500 MG Tablet 1000 MG PO (20:15)
[2017-04-21] MEDS: Acetaminophen 500 MG Tablet 1000 MG PO ×3 (04:57→20:18)
[2017-04-21] MEDS: Famotidine 20 MG Tablet PO (04:57)
[2017-04-21] MEDS: Lisinopril 5 MG Tablet PO (04:57)
[2017-04-21] MEDS: Aspirin 325 MG Tablet PO (08:00)
[2017-04-21 08:54] LABS: Absolute Lymphocyte Count 1.22 X10^3/ul (0.83-4.51); Absolute Neutrophil Count 6.4 X10^3/uL (2.0-7.7); Basophil# 0.01 X10^3/uL; Basophil% 0.1 % (0-1); Eosinophil# 0.08 X10^3/uL; Hematocrit 40.8 % (37-47); Hemoglobin 13.5 g/dl (12.0-15.0); Lymphocyte # 1.22 X10^3/ul (4.0); Mean Corp Hgb Conc 33.1 g/gl (32-36); Mean Corpuscular Hgb 32.5 pg (27.0-32.0); Mean Corpuscular Volume 98.3 fL (81-99); Mean Platelet Vol. 9.8 fl (6.2-12.0); Monocyte# 0.42 X10^3/uL; Monocyte% 5.1 % (0-10); Neutrophil % 78.4 % (47-70); Platelet Count 339 K/mm3 (150-450); RBC Distribution Width CV 14.7 % (11.6-14.6); RBC Distribution Width SD 51.2 fl (35.1-43.9); Red Blood Count 4.15 M/mm3 (4.2-5.4); White Blood Count 8.2 K/mm3 (4.4-11.0)
[2017-04-21 08:55] LABS: POSITIVE COUNT NO; POSITIVE DIFFERENTIAL NO; POSITIVE MORPHOLOGY NO
[2017-04-21 09:17] LABS: Anion Gap 7 (5-15); BUN 12 mg/dL (7-18); Calcium,Total 9.1 mg/dL (8.5-10.1); Chloride 104 mmol/L (98-107); Creatinine, Serum 0.67 mg/dL (0.55-1.02); EST Glomerular Filtration Rate 90 mL/min (>60); Est Glom Filt Rate - Afr Amer 109 mL/min (>60); Estimated Creatinine Clearance 48.85 ml/min; Glucose 110 mg/dL (74-106); Potassium 3.7 mmol/L (3.5-5.1); Sodium Level 140 mmol/L (136-145)
[2017-04-21] MEDS: Tuberculin,Purif.prot.deriv. 50 TU/ML Vial 5 ML ID (12:00)
--- NOTE | 2017-04-21 14:09 | PCM.PN.RX ---
<FloydRamin schneider D - Last Filed: 04/21/17 14:09> Progress Note - Pharmacy Subjective: TCU Admission Objective: Allergies No Known Allergies Allergy (Verified 04/16/17 11:35) Home Medications Medication Instructions Recorded Lisinopril [Zestril] 5 mg PO DAILY 04/08/17 Cholecalciferol (Vitamin D3) 4,000 unit PO DAILY 04/16/17 [Vitamin D3] Oxycodone [Oxyir] 5 - 10 mg PO Q4H PRN PRN 5 Days 04/19/17 #60 tab Senna/Docusate Sodium [Senokot-S] 2 tablet PO BID PRN PRN 5 Days 04/19/17 tablet Acetaminophen [Tylenol] 1,000 mg PO Q8 04/20/17 Aspirin 325 mg PO DAILY@0800 04/20/17 Famotidine [Pepcid] 20 mg PO DAILY 04/20/17 Current Medications Generic Name Dose Route Start Last Admin Trade Name Freq PRN Reason Stop Dose Admin Acetaminophen 1,000 mg 04/20/17 22:00 04/21/17 04:57 Tylenol PO 1,000 mg Q8 BRITTANY Administration Aspirin 325 mg 04/21/17 08:00 04/21/17 08:00 Aspirin PO 05/05/17 08:01 325 mg DAILY@0800 BRITTANY Administration Bisacodyl 10 mg 04/20/17 16:10 Dulcolax RECTAL DAILY PRN Constipation Cholecalciferol 4,000 unit 04/21/17 06:00 04/21/17 04:57 Vitamin D PO 4,000 unit DAILY BRITTANY Administration Famotidine 20 mg 04/21/17 06:00 04/21/17 04:57 Pepcid PO 20 mg DAILY BRITTANY Administration Lisinopril 5 mg 04/21/17 06:00 04/21/17 04:57 Zestril PO 5 mg DAILY BRITTANY Administration Oxycodone HCl 5 mg 04/20/17 16:10 Oxyir PO Q4H PRN PRN MODERATE PAIN (4-5/10) Polyethylene Glycol 17 gm 04/21/17 06:00 04/21/17 04:55 Miralax PO Not Given DAILY BRITTANY Senna/Docusate Sodium 2 tablet 04/20/17 18:00 04/21/17 05:15 Senokot-S, Valeri-Colace PO Not Given BID BRITTANY Tuberculin PPD 5 tu 04/28/17 10:00 Tubersol, Aplisol, Ppd ID 04/28/17 10:01 X1 ONE Problem List Fall (Acute) Closed fracture of right proximal humerus (Acute) Rotator cuff tear, right (Chronic) Hypertension (Chronic) Vitamin D deficiency (Chronic) GERD (gastroesophageal reflux disease) (Chronic) Constipation (Chronic) Osteoarthritis (Chronic) Vital Signs Temp Pulse Resp BP Pulse Ox 98.5 F 65 20 H 161/72 H 97 04/20/17 15:11 04/20/17 15:11 04/20/17 15:11 04/20/17 15:11 04/20/17 15:11 Oxygen Delivery Method Room Air Weight: 72.6 kg Body Mass Index (BMI) 33.4 Sodium 140 mmol/L (136-145) 04/21/17 08:30 Potassium 3.7 mmol/L (3.5-5.1) 04/21/17 08:30 Chloride 104 mmol/L (98-107) 04/21/17 08:30 Carbon Dioxide 29.0 mmol/L (21.0-32.0) 04/21/17 08:30 Anion Gap 7 (5-15) 04/21/17 08:30 BUN 12 mg/dL (7-18) 04/21/17 08:30 Creatinine 0.67 mg/dL (0.55-1.02) 04/21/17 08:30 Est GFR (MDRD) Af Amer 109 mL/min (>60) 04/21/17 08:30 Est GFR (MDRD) Non-Af 90 mL/min (>60) 04/21/17 08:30 BUN/Creatinine Ratio 18.0 RATIO (10-20) 04/21/17 08:30 Glucose 110 mg/dL (74-106) H 04/21/17 08:30 Assessment/Plan: 1) Pain APAP scheduled, oxycodone for moderate pain. Continue to monitor daily pain scores, prn medication use. 2) HTN Lisinopril daily. BP wnl, BUN/SCr at baseline, K wnl. Continue to monitor BP, electrolytes, renal function. 3) GI Famotidine daily. Continue to monitor s/s GI distress. 4) Nutrition Cholecalciferol daily. Continue to monitor clinically. 5) DVT PPx ASA daily. Continue to monitor s/s bleeding/clot. Psychotropic Medications: None Unnecessary Medications: None Bowel Regimen: 6) Senna/s, PEG, prn bisacodyl. Continue to monitor prn medication use, for constipation/diarrhea. Date of Note:: 04/21/17 - Provider Comments Provider responsibility: Provider responsible to enter orders to implement recommendations <Edmond Waddell Chi - Last Filed: 04/21/17 14:22> Progress Note - Pharmacy Subjective: [] Objective: Allergies No Known Allergies Allergy (Verified 04/16/17 11:35) Home Medications Medication Instructions Recorded Lisinopril [Zestril] 5 mg PO DAILY 04/08/17 Cholecalciferol (Vitamin D3) 4,000 unit PO DAILY 04/16/17 [Vitamin D3] Oxycodone [Oxyir] 5 - 10 mg PO Q4H PRN PRN 5 Days 04/19/17 #60 tab Senna/Docusate Sodium [Senokot-S] 2 tablet PO BID PRN PRN 5 Days 04/19/17 tablet Acetaminophen [Tylenol] 1,000 mg PO Q8 04/20/17 Aspirin 325 mg PO DAILY@0800 04/20/17 Famotidine [Pepcid] 20 mg PO DAILY 04/20/17 Current Medications Generic Name Dose Route Start Last Admin Trade Name Freq PRN Reason Stop Dose Admin Acetaminophen 1,000 mg 04/20/17 22:00 04/21/17 04:57 Tylenol PO 1,000 mg Q8 BRITTANY Administration Aspirin 325 mg 04/21/17 08:00 04/21/17 08:00 Aspirin PO 05/05/17 08:01 325 mg DAILY@0800 BRITTANY Administration Bisacodyl 10 mg 04/20/17 16:10 Dulcolax RECTAL DAILY PRN Constipation Cholecalciferol 4,000 unit 04/21/17 06:00 04/21/17 04:57 Vitamin D PO 4,000 unit DAILY BRITTANY Administration Famotidine 20 mg 04/21/17 06:00 04/21/17 04:57 Pepcid PO 20 mg DAILY BRITTANY Administration Lisinopril 5 mg 04/21/17 06:00 04/21/17 04:57 Zestril PO 5 mg DAILY BRITTANY Administration Oxycodone HCl 5 mg 04/20/17 16:10 Oxyir PO Q4H PRN PRN MODERATE PAIN (4-5/10) Polyethylene Glycol 17 gm 04/21/17 06:00 04/21/17 04:55 Miralax PO Not Given DAILY [facility] Senna/Docusate Sodium 2 tablet 04/20/17 18:00 04/21/17 05:15 Senokot-S, Valeri-Colace PO Not Given BID BRITTANY Tuberculin PPD 5 tu 04/28/17 10:00 Tubersol, Aplisol, Ppd ID 04/28/17 10:01 X1 ONE Problem List Fall (Acute) Closed fracture of right proximal humerus (Acute) Rotator cuff tear, right (Chronic) Hypertension (Chronic) Vitamin D deficiency (Chronic) GERD (gastroesophageal reflux disease) (Chronic) Constipation (Chronic) Osteoarthritis (Chronic) Vital Signs Temp Pulse Resp BP Pulse Ox 98.5 F 65 20 H 161/72 H 97 04/20/17 15:11 04/20/17 15:11 04/20/17 15:11 04/20/17 15:11 04/20/17 15:11 Oxygen Delivery Method Room Air Weight: 72.6 kg Body Mass Index (BMI) 33.4 Sodium 140 mmol/L (136-145) 04/21/17 08:30 Potassium 3.7 mmol/L (3.5-5.1) 04/21/17 08:30 Chloride 104 mmol/L (98-107) 04/21/17 08:30 Carbon Dioxide 29.0 mmol/L (21.0-32.0) 04/21/17 08:30 Anion Gap 7 (5-15) 04/21/17 08:30 BUN 12 mg/dL (7-18) 04/21/17 08:30 Creatinine 0.67 mg/dL (0.55-1.02) 04/21/17 08:30 Est GFR (MDRD) Af Amer 109 mL/min (>60) 04/21/17 08:30 Est GFR (MDRD) Non-Af 90 mL/min (>60) 04/21/17 08:30 BUN/Creatinine Ratio 18.0 RATIO (10-20) 04/21/17 08:30 Glucose 110 mg/dL (74-106) H 04/21/17 08:30 Assessment/Plan: Psychotropic Medications: Unnecessary Medications: Bowel Regimen: - Provider Comments Provider responsibility: Provider responsible to enter orders to implement recommendations Provider Comments to Recommendations by Pharmacy: Agree
[2017-04-21 16:00] VITALS: BP 158/71; PULSE 63; RESP 17; TEMP 37.2; O2SAT 96
[2017-04-21 22:07] VITALS: RESP 15
[2017-04-22] MEDS: Acetaminophen 500 MG Tablet 1000 MG PO ×3 (05:09→19:58)
[2017-04-22] MEDS: Lisinopril 5 MG Tablet PO (05:10)
[2017-04-22] MEDS: Famotidine 20 MG Tablet PO (05:10)
[2017-04-22] MEDS: Polyethylene Glycol 3350 17 GM PACKET PO (05:10)
[2017-04-22] MEDS: Aspirin 325 MG Tablet PO (07:54)
--- NOTE | 2017-04-22 13:54 | NURSING ---
RESIDENT NOTED TO HAVE FREQUENCY WITH URINATION, ESPECIALLY AT HS. RESIDENT STATES IT STARTED ON THE ACUTE SIDE AND HAS CONTINUED ON TCU. DENIES ALL OTHER SYMPTOMS OF A UTI. DR. BLUE UPDATED, N.O. FOR UA AND TO BLADDER SCAN FOR PVR. PT UPDATED.
[2017-04-22 14:13] LABS: Mucous, Urine 0 SEEN /hpf (<or=2+); Red Blood Cells-Urine 0 SEEN /hpf (0-5); Squamous Epithelial Cells - UA 0 SEEN /hpf (5-10); White Blood Cells 0 SEEN /hpf (0-5)
[2017-04-22 14:15] LABS: Color, Urine Yellow (Yellow); Glucose, Dipstick Normal (Normal); Ketone-Dipstick Negative (Negative); Leukocyte Esterase-Dipstick Negative /ul (Negative); Nitrite-Dipstick Negative (Negative); Occult Blood-Urine 10 /ul (Negative); Protein-Dipstick Negative (Negative); Urine Bilirubin Dipstick Negative (Negative); Urine Clarity Clear (Clear); Urine Urobilinogen Normal (Normal)
[2017-04-22 14:25] LABS: Bacteria RARE /hpf (None Seen)
[2017-04-22 16:00] VITALS: BP 148/65; PULSE 68; RESP 16; TEMP 36.4; O2SAT 97
[2017-04-23] MEDS: Lisinopril 5 MG Tablet PO (05:15)
[2017-04-23] MEDS: Acetaminophen 500 MG Tablet 1000 MG PO ×3 (05:15→20:56)
[2017-04-23] MEDS: Famotidine 20 MG Tablet PO (05:15)
[2017-04-23] MEDS: Polyethylene Glycol 3350 17 GM PACKET PO (05:16)
[2017-04-23] MEDS: Aspirin 325 MG Tablet PO (07:46)
--- NOTE | 2017-04-23 13:59 | CASEMGMT ---
Insurance Clinical information faxed. Pending continued stay approval at this time. Auth#[id number] Kylie DIANE, SVP MARKETING & COMMUNICATIONS AT [employer]
[2017-04-23 16:00] VITALS: BP 136/71; PULSE 65; RESP 20; TEMP 36.8; O2SAT 97
[2017-04-23] MEDS: Senna/Docusate Sodium 1 Tablet 2 TABLET PO (17:58)
[2017-04-24] MEDS: Acetaminophen 500 MG Tablet 1000 MG PO ×3 (05:01→21:02)
[2017-04-24] MEDS: Lisinopril 5 MG Tablet PO (05:01)
[2017-04-24] MEDS: Famotidine 20 MG Tablet PO (05:02)
[2017-04-24] MEDS: Aspirin 325 MG Tablet PO (08:13)
[2017-04-24 15:32] VITALS: BP 102/57; PULSE 62; RESP 18; TEMP 36.3; O2SAT 97
[2017-04-24] MEDS: Senna/Docusate Sodium 1 Tablet 2 TABLET PO (17:43)
[2017-04-25] MEDS: Famotidine 20 MG Tablet PO (05:24)
[2017-04-25] MEDS: Lisinopril 5 MG Tablet PO (05:24)
[2017-04-25] MEDS: Acetaminophen 500 MG Tablet 1000 MG PO ×3 (05:24→21:14)
[2017-04-25] MEDS: Aspirin 325 MG Tablet PO (07:34)
--- NOTE | 2017-04-25 10:28 | CASEMGMT ---
Plan of care meeting held. Resident present, no support person present at this time. Resident plans to discharge home alone at time of discharge. Resident has no discharge date set at this time. Resident to continue with further care and treatment on the Transitional Care Unit. Resident currently pending continued insurance approval at this time. Support given. Will continue to follow. Kylie DIANE, PLANER OFFBEARER
[2017-04-25 15:57] VITALS: BP 107/56; PULSE 68; RESP 18; TEMP 36.8; O2SAT 97
--- NOTE | 2017-04-25 16:23 | CHAPLAIN ---
Type of Pastoral Visit _x__ Initial Visit ___ Follow-up Visit ___ On-call Visit ___ General Patient Visit ___ Spiritual Assessment ___ Family Conference ___ Bereavement ___ Rapid Response ___ Code Blue ___ Other (describe below) Pastoral Care Referral From _x__ Patient ___ Family ___ Nurse ___ Physician ___ Organ Recovery Coordinator ___ Dip Stand Loader ___ Other (describe below) Sacrament/Intervention _x__ Active listening ___ Anointing ___ Temple _x__ Bereavement ___ Communion ___ Melly exploration ___ _x__ Life review _x__ Prayer ___ Reconciliation ___ Sacrament of Sick ___ Supportive presence ___ Wedding ___ Other (describe below) Pastoral Comments learned that patient lost her of 63 years just this February; pt had this fall which resulted in shoulder injury; pt speaks of good support in family and hindu; pt says that the staff has been very kind and helpful
[2017-04-26] MEDS: Acetaminophen 500 MG Tablet 1000 MG PO ×3 (05:27→21:02)
[2017-04-26] MEDS: Famotidine 20 MG Tablet PO (05:27)
[2017-04-26] MEDS: Lisinopril 5 MG Tablet PO (05:27)
[2017-04-26 05:30] VITALS: PULSE 71; O2SAT 98
[2017-04-26] MEDS: Aspirin 325 MG Tablet PO (07:35)
--- NOTE | 2017-04-26 10:27 | CASEMGMT ---
Insurance Continued stay approved with next update due on 05/01/17. Auth#[id number] Kylie DIANE, O AND M SUPERVISOR
[2017-04-26 15:25] VITALS: BP 111/56; PULSE 64; RESP 16; TEMP 36.6; O2SAT 98
--- NOTE | 2017-04-26 15:28 | CASEMGMT ---
Brief interview for mental status (BIMS) and resident mood interview (PHQ-9) completed on this day. BIMS score 15. PHQ-9 score 03/03
[2017-04-26] MEDS: Senna/Docusate Sodium 1 Tablet 2 TABLET PO (17:22)
[2017-04-27] MEDS: Famotidine 20 MG Tablet PO (05:24)
[2017-04-27] MEDS: Senna/Docusate Sodium 1 Tablet 2 TABLET PO (05:24)
[2017-04-27] MEDS: Acetaminophen 500 MG Tablet 1000 MG PO ×3 (05:24→20:20)
[2017-04-27] MEDS: Lisinopril 5 MG Tablet PO (05:24)
[2017-04-27] MEDS: Aspirin 325 MG Tablet PO (07:09)
[2017-04-27 15:25] VITALS: BP 124/70; PULSE 61; RESP 16; TEMP 36.8; O2SAT 96
[2017-04-28] MEDS: Lisinopril 5 MG Tablet PO (05:35)
[2017-04-28] MEDS: Famotidine 20 MG Tablet PO (05:35)
[2017-04-28] MEDS: Acetaminophen 500 MG Tablet 1000 MG PO ×3 (05:38→20:54)
[2017-04-28] MEDS: Aspirin 325 MG Tablet PO (08:15)
[2017-04-28 09:06] LABS: Absolute Lymphocyte Count 1.55 X10^3/ul (0.83-4.51); Absolute Neutrophil Count 3.9 X10^3/uL (2.0-7.7); Basophil# 0.05 X10^3/uL; Basophil% 0.8 % (0-1); Eosinophils% 1.7 % (0-5); Hematocrit 41.8 % (37-47); Hemoglobin 13.8 g/dl (12.0-15.0); Lymphocyte # 1.55 X10^3/ul (4.0); Lymphocyte % 25.6 % (19-41); Mean Corpuscular Hgb 32.9 pg (27.0-32.0); Mean Corpuscular Volume 99.5 fL (81-99); Mean Platelet Vol. 9.5 fl (6.2-12.0); Monocyte# 0.44 X10^3/uL; Monocyte% 7.3 % (0-10); Neutrophil # 3.91 X10^3/uL (2.7-7.7); Neutrophil % 64.4 % (47-70); Platelet Count 380 K/mm3 (150-450); RBC Distribution Width SD 53.6 fl (35.1-43.9); White Blood Count 6.1 K/mm3 (4.4-11.0)
[2017-04-28 09:07] LABS: POSITIVE COUNT NO; POSITIVE DIFFERENTIAL NO; POSITIVE MORPHOLOGY NO
[2017-04-28 10:47] LABS: Anion Gap 5 (5-15); BUN 13 mg/dL (7-18); BUN/Creat Ratio 19.7 RATIO (10-20); Calcium,Total 9.2 mg/dL (8.5-10.1); Chloride 104 mmol/L (98-107); Creatinine, Serum 0.66 mg/dL (0.55-1.02); EST Glomerular Filtration Rate 91 mL/min (>60); Est Glom Filt Rate - Afr Amer 110 mL/min (>60); Estimated Creatinine Clearance 46.97 ml/min; Glucose 117 mg/dL (74-106); Sodium Level 138 mmol/L (136-145)
[2017-04-28] MEDS: Tuberculin,Purif.prot.deriv. 50 TU/ML Vial 5 ML ID (10:55)
[2017-04-28 16:00] VITALS: BP 123/66; PULSE 67; RESP 16; TEMP 36.8; O2SAT 96
[2017-04-29] MEDS: Lisinopril 5 MG Tablet PO (06:44)
[2017-04-29] MEDS: Acetaminophen 500 MG Tablet 1000 MG PO ×3 (06:44→20:58)
[2017-04-29] MEDS: Famotidine 20 MG Tablet PO (06:44)
[2017-04-29] MEDS: Aspirin 325 MG Tablet PO (08:19)
[2017-04-29 16:00] VITALS: BP 119/63; PULSE 67; RESP 18; TEMP 36.7; O2SAT 96
[2017-04-30] MEDS: Acetaminophen 500 MG Tablet 1000 MG PO ×2 (06:29→17:16)
[2017-04-30] MEDS: Lisinopril 5 MG Tablet PO (06:29)
[2017-04-30] MEDS: Famotidine 20 MG Tablet PO (06:29)
[2017-04-30 06:31] VITALS: PULSE 64; O2SAT 97
[2017-04-30] MEDS: Aspirin 325 MG Tablet PO (07:45)
--- NOTE | 2017-04-30 15:14 | NURSING ---
Addendum entered by Yolis Bell 04/30/17 15:41: pt wants tylenol changed to PRN instead of scheduled. Original Note: pt returned from Ortho appt w/orders to DC aspirin, continue tylenol for pain. Oxycodone PRN. DC ultra sling to sling as tolerated- must continue w/sling in public & continue with sling at night. New orders for physical therapy, will give them a copy.
[2017-04-30 16:00] VITALS: BP 133/68; PULSE 74; RESP 18; TEMP 36.8; O2SAT 95
[2017-05-01] MEDS: Famotidine 20 MG Tablet PO (06:13)
[2017-05-01] MEDS: Lisinopril 5 MG Tablet PO (06:13)
--- NOTE | 2017-05-01 09:48 | CASEMGMT ---
Social Work: Insurance: Clinical updates faxed to Winifred at [facility] fax# . Awaiting continued stay determination. Auth # [id number] ARTHUR Ybarra
--- NOTE | 2017-05-01 13:40 | MDS.RN ---
Information for the mds was obtained from review of the clinical record, interview of resident, staff, and direct observation of resident's care.
[2017-05-01 15:37] VITALS: BP 116/69; PULSE 69; RESP 16; TEMP 36.6; O2SAT 96
[2017-05-02] MEDS: Famotidine 20 MG Tablet PO (06:17)
[2017-05-02] MEDS: Lisinopril 5 MG Tablet PO (06:17)
--- NOTE | 2017-05-02 09:14 | CASEMGMT ---
Insurance Continued stay denied with last cover day bein05/04/17 and resident to discharge or financial responsibility to begin on 05/05/17. Auth#[id number] Kylie DIANE, LOCKER ROOM CLERK
--- NOTE | 2017-05-02 13:08 | CASEMGMT ---
Brief interview for mental status (BIMS) and resident mood interview (PHQ-9) completed on this day. BIMS score 15. PHQ-9 score 04/03
--- NOTE | 2017-05-02 13:09 | CASEMGMT ---
Social Work Spoke with resident in room. This geriatric social work professor communicating to resident that continued stay has been denied with a last cover day of 05/04/17 and resident to discharge or financial responsibility to begin on 05/05/17. Resident planning to discharge on 05/05/17 to home alone. Physical therapy is recommending for resident to continue with services through outpatient service. Resident agreeable to recommendation and requesting for outpatient physical therapy to be set up through [facility]. Resident declining for this geriatric social work professor to contact resident family about discharge as resident is planning to speak with family. Resident family to provide transportation home for resident at time of discharge. Support given. Telephone call to [facility]. Outpatient physical therapy appointment set up for 05/08/17 @ 10:30am. [facility] already has order. Proposed discharge date: 05/05/17 PLAN: Discharge home alone with outpatient physical therapy. Kylie DIANE, PUBLICATIONS MANAGER
[2017-05-02 16:00] VITALS: BP 129/70; PULSE 77; RESP 18; TEMP 36.8; O2SAT 95
--- NOTE | 2017-05-02 20:59 | PCM.DC ---
- Discharge Diagnoses Current Active Problems: Current Active and Chronic Problems Fall (Acute) Closed fracture of right proximal humerus (Acute) Rotator cuff tear, right (Chronic) Hypertension (Chronic) Vitamin D deficiency (Chronic) GERD (gastroesophageal reflux disease) (Chronic) Constipation (Chronic) Osteoarthritis (Chronic) You will use the following diet at home:: No restrictions, Regular Your food should be the consistency of: Regular Your liquids should be the consistency of: Regular/Thin Discharge Activity: Return to Normal Activity Weight Bearing Status: Weight bearing as tolerated Call your doctor if you observe: Fever of 101 or Higher, Inability to urinate, Inability to have a bowel movement, Shortness of breath, Chest pain, Uncontrolled pain Allergies/Adverse Reactions: Allergies No Known Allergies Allergy (Verified 04/16/17 11:35) Medications to take at Discharge Lisinopril [Zestril] 5 mg PO DAILY 04/08/17 Cholecalciferol (Vitamin D3) [Vitamin D3] 4,000 unit PO DAILY 04/16/17 Acetaminophen [Tylenol] 1,000 mg PO Q8 04/20/17 Aspirin 325 mg PO DAILY@0800 04/20/17 Famotidine [Pepcid] 20 mg PO DAILY #30 tab 05/02/17 Oxycodone [Oxyir] 5 - 10 mg PO Q4H PRN PRN 5 Days #30 tab 05/02/17 Polyethylene Glycol 3350 [Miralax] 17 gm PO DAILY PRN #30 packet 05/02/17 The following prescriptions were given: Oxycodone [Oxyir] 5 - 10 mg PO Q4H PRN PRN 5 Days #30 tab PRN Reason: Pain Famotidine [Pepcid] 20 mg PO DAILY #30 tab Polyethylene Glycol 3350 [Miralax] 17 gm PO DAILY PRN #30 packet PRN Reason: Constipation Primary Care Physician: Miguel Maradiaga III, MD [Primary Care Provider] - Please follow up with your Primary Care Physician in: 1 week. Please Follow Up With: Scooby Pabon MD When: [phone] Proposed Discharge Date: 05/05/17
--- NOTE | 2017-05-02 21:01 | PCM.DC.SUM ---
Discharge Date and Diagnosis - Problem List Patient Problems: Active and Suspected Problems Fall (Acute) Closed fracture of right proximal humerus (Acute) Date of Admission: 04/20/17 Date of Discharge: 05/05/17 - Primary Discharge Diagnosis Active and Suspected Problems Fall (Acute) Closed fracture of right proximal humerus (Acute) - Secondary Discharge Diagnosis Chronic Problems Rotator cuff tear, right (Chronic) Hypertension (Chronic) Vitamin D deficiency (Chronic) GERD (gastroesophageal reflux disease) (Chronic) Constipation (Chronic) Osteoarthritis (Chronic) Hospital Course and Treatment Imaging Results: 04/20/17 15:36 Diet: Regular Diet Operations: None Procedures: None Summary of Care Provided: The patient is a 82 year old Female with below past medical history hospitalized for right reverse total shoulder arthroplasty 04/17/[address] Brendan Pabon, admitted to TCU with debility, for rehabilitation, strengthening, prior to discharge home alone. [] Discharge home alone with outpatient physical therapy. Discharge Diet: No Restrictions Discharge Activity: Return to Normal Activity Weight Bearing Status: Weight bearing as tolerated Call your doctor if you observe: Fever of 101 or Higher, Inability to urinate, Inability to have a bowel movement, Shortness of breath, Chest pain, Uncontrolled pain Home Medications: Medications to take at Discharge Lisinopril [Zestril] 5 mg PO DAILY 04/08/17 Cholecalciferol (Vitamin D3) [Vitamin D3] 4,000 unit PO DAILY 04/16/17 Acetaminophen [Tylenol] 1,000 mg PO Q8 04/20/17 Aspirin 325 mg PO DAILY@0800 04/20/17 Famotidine [Pepcid] 20 mg PO DAILY #30 tab 05/02/17 Oxycodone [Oxyir] 5 - 10 mg PO Q4H PRN PRN 5 Days #30 tab 05/02/17 Polyethylene Glycol 3350 [Miralax] 17 gm PO DAILY PRN #30 packet 05/02/17 Following Prescrptions Were Given to Patient: Oxycodone [Oxyir] 5 - 10 mg PO Q4H PRN PRN 5 Days #30 tab PRN Reason: Pain Famotidine [Pepcid] 20 mg PO DAILY #30 tab Polyethylene Glycol 3350 [Miralax] 17 gm PO DAILY PRN #30 packet PRN Reason: Constipation Primary Care Physician: Miguel Maradiaga III, MD [Primary Care Provider] - Please follow up with your Primary Care Physician in: 1 week. Please Follow Up With: Scooby Pabon MD When: [phone] Disposition: Home Minutes spent on discharge:: 30 Patient Condition:: Good Medical Necessity - Tobacco Use Smoking Status: Never smoker Meaningful Use Info Meaningful Use Diagnoses (Choose all that apply): None applicable
[2017-05-03] MEDS: Famotidine 20 MG Tablet PO (06:11)
[2017-05-03] MEDS: Lisinopril 5 MG Tablet PO (06:11)
--- NOTE | 2017-05-03 11:57 | MDS.RN ---
Pain interview for KARO 05/04/17 completed.
[2017-05-03 16:00] VITALS: BP 107/65; PULSE 69; RESP 18; TEMP 37.2; O2SAT 96
[2017-05-04] MEDS: Lisinopril 5 MG Tablet PO (06:21)
[2017-05-04] MEDS: Famotidine 20 MG Tablet PO (06:21)
[2017-05-04 15:43] VITALS: BP 119/61; PULSE 83; RESP 20; TEMP 36.7; O2SAT 96
[2017-05-04] MEDS: Acetaminophen 500 MG Tablet 1000 MG PO (20:35)
[2017-05-05] MEDS: Lisinopril 5 MG Tablet PO (06:27)
[2017-05-05] MEDS: Famotidine 20 MG Tablet PO (06:27)
[2017-05-05 06:30] VITALS: PULSE 77; RESP 15; O2SAT 97
[2017-05-05 07:15] LABS: Absolute Lymphocyte Count 1.85 X10^3/ul (0.83-4.51); Absolute Neutrophil Count 2.5 X10^3/uL (2.0-7.7); Basophil# 0.03 X10^3/uL; Basophil% 0.6 % (0-1); Eosinophil# 0.14 X10^3/uL; Eosinophils% 2.8 % (0-5); Hematocrit 42.6 % (37-47); Lymphocyte # 1.85 X10^3/ul (4.0); Lymphocyte % 36.4 % (19-41); Mean Corp Hgb Conc 32.9 g/gl (32-36); Mean Corpuscular Hgb 32.9 pg (27.0-32.0); Mean Corpuscular Volume 100.2 fL (81-99); Mean Platelet Vol. 9.6 fl (6.2-12.0); Monocyte# 0.53 X10^3/uL; Monocyte% 10.4 % (0-10); Neutrophil # 2.53 X10^3/uL (2.7-7.7); Neutrophil % 49.8 % (47-70); Platelet Count 287 K/mm3 (150-450); RBC Distribution Width CV 14.9 % (11.6-14.6); RBC Distribution Width SD 54.4 fl (35.1-43.9); Red Blood Count 4.25 M/mm3 (4.2-5.4); White Blood Count 5.1 K/mm3 (4.4-11.0)
[2017-05-05 07:16] LABS: POSITIVE COUNT NO; POSITIVE DIFFERENTIAL NO; POSITIVE MORPHOLOGY NO
[2017-05-05 07:39] LABS: Anion Gap 6 (5-15); BUN 12 mg/dL (7-18); BUN/Creat Ratio 22.2 RATIO (10-20); Calcium,Total 8.9 mg/dL (8.5-10.1); Chloride 105 mmol/L (98-107); Creatinine, Serum 0.54 mg/dL (0.55-1.02); EST Glomerular Filtration Rate 115 mL/min (>60); Est Glom Filt Rate - Afr Amer 139 mL/min (>60); Estimated Creatinine Clearance 46.06 ml/min; Glucose 91 mg/dL (74-106); Potassium 3.9 mmol/L (3.5-5.1); Sodium Level 140 mmol/L (136-145)
[2017-05-05 08:26] VITALS: BP 132/70; PULSE 98; RESP 18; TEMP 36.5; O2SAT 95
--- NOTE | 2017-05-07 10:08 | CASEMGMT ---
Insurance VM left with Winifred at [facility] that pt was d/c on 05/05/17 to her home with outpt therapy. Auth #[id number] BENEDICTO Pham
== END 2017-05-05 10:03 | disposition home or self-care (01) | DRG 561 ==
PROVIDERS: Admitting Provider Family Medicine Geriatric Medicine; Family Provider Family Medicine; PCP Family Medicine; Visit Provider Family Medicine Geriatric Medicine
DX: S42.211D Unspecified displaced fracture of surgical neck of right humerus, subsequent encounter for fracture with routine healing (principal); E55.9 Vitamin D deficiency, unspecified; I10 Essential (primary) hypertension; W19.XXXD Unspecified fall, subsequent encounter; K21.9 Gastro-esophageal reflux disease without esophagitis; K59.09 Other constipation; M19.90 Unspecified osteoarthritis, unspecified site; Z79.899 Other long term (current) drug therapy; Z79.82 Long term (current) use of aspirin; Z96.611 Presence of right artificial shoulder joint
CPT/HCPCS: 36415; 80048; 81001; 85025; 97110; 97116; 97162; 97166; 97530; 97535; 97802

== ENCOUNTER 2020-09-09 12:50 | Inpatient (IN) | payer MEDICARE, SELFPAY ==
[2020-09-09 12:56] VITALS: BP 152/58; PULSE 63; RESP 18; TEMP 36.3; O2SAT 96; BMI 32.8
[2020-09-09 14:44] VITALS: BP 152/58; PULSE 63; RESP 18; TEMP 36.3; O2SAT 96
[2020-09-09] MEDS: Acetaminophen 500 MG Tablet 1000 MG PO ×2 (15:22→21:37)
[2020-09-09] MEDS: oxyCODONE 5 MG Tablet PO (15:25)
[2020-09-09] MEDS: Senna/Docusate Sodium 1 Tablet 2 TABLET PO (17:17)
[2020-09-09] MEDS: Menthol/Lanolin/Calamine/Znox 113 GM Tube 1 APPLIC TOPICAL (17:18)
[2020-09-09] MEDS: Aspirin 81 MG TAB.CHEW PO (17:18)
[2020-09-09] MEDS: Meloxicam 7.5 MG Tablet PO (17:18)
--- NOTE | 2020-09-09 19:36 | HP.PCM_ITS ---
HPI - General General Date of Admission: 09/09/20 HPI Narrative 09/07/2020 MACIE WALLS, is a 85 Female who presents to [facility] with osteoarthritis left knee. 09/07/2020 Dr. Pabon performed robotic assisted left total knee arthroplasty. Postoperative course uncomplicated. 09/09/2020 Patient lives alone, admit to TCU with debility, here for rehabilitation, strengthening, prior to discharge home alone. [facility] Home Medications lisinopril 5 mg PO DAILY 04/08/17 [History Last Taken 04/17/17 05:30] cholecalciferol (vitamin D3) 1,000 unit PO DAILY 04/16/17 [History Last Taken Unknown] acetaminophen 1,000 mg PO TID 04/20/17 [History Last Taken 04/20/17 14:50] aspirin 325 mg PO DAILY@0800 04/20/17 [History Last Taken Unknown] famotidine 20 mg PO DAILY #30 tab 05/02/17 [Rx Last Taken Unknown] polyethylene glycol 3350 17 gm PO DAILY PRN #30 packet 05/02/17 [Rx Last Taken Unknown] aspirin 81 mg PO BID 09/09/20 [History Last Taken Unknown] meloxicam 7.5 mg PO BID 09/09/20 [History Last Taken Unknown] multivitamin 1 tab PO DAILY 09/09/20 [History Last Taken Unknown] oxycodone 5 mg PO Q6H PRN PRN 09/09/20 [History Last Taken Unknown] sennosides-docusate sodium [Senokot-S] 2 tab-cap PO BID 09/09/20 [History Last Taken Unknown] Allergy/AdvReac Type Severity Reaction Status Date / Time No Known Allergies Allergy Verified 04/16/17 11:35 Family History (Updated 09/09/20 @ 19:[address] Edmond Waddell MD) Father DVT (deep venous thrombosis) Brother Heart disease Son Heart disease Surgical History (Updated 09/09/20 @ 19:[address] Edmond Waddell MD) History of appendectomy History of arthroplasty of left knee Social History (Updated 09/09/20 @ 19:[address] Edmond Waddell MD) household members: none Smoking Status: Never smoker alcohol intake: never substance use type: does not use ROS Constitutional Constitutional: Denies chills, fever(s) or weight gain ENT HEENT: Denies headache(s), nasal congestion or nasal discharge Cardiovascular Cardiovascular: Denies chest pain or palpitations Respiratory/Chest Respiratory/Chest: Denies cough, excessive phlegm production or shortness of breath with exertion Gastrointestinal Gastrointestinal: Denies abdominal pain, nausea or vomiting Genitourinary Genitourinary: Denies dysuria Musculoskeletal Musculoskeletal: Denies joint pain or joint swelling Integumentary Integumentary: Denies rash or wounds Neurologic Neurologic: Denies focal weakness, numbness or tingling Psychiatric Psychiatric: Reports auditory hallucinations; Denies anxiety, depression, homicidal ideation or suicidal ideation Vital Signs Vital Signs Vital Signs: 09/09/20 12:56 09/09/20 14:44 Temperature 97.3 F L 97.3 F L Temperature Source Temporal Temporal Pulse Rate 63 63 Pulse Rhythm Regular Pulse Strength Normal (2+) Respiratory Rate 18 18 Respiratory Effort Normal Non-Labored Respiratory Depth Normal Blood Pressure 152/58 H 152/58 H Blood Pressure Mean 89 89 Blood Pressure Source Monitor Monitor Blood Pressure Position Semi-Fowlers Semi-Fowlers Blood Pressure Location Right Arm Right Arm Pulse Ox 96 96 Oxygen Delivery Method Room Air Room Air Weight Weight: 76.113 kg Body Mass Index (BMI) 32.8 Physical Exam Const alert and oriented x3 General Appearance: cooperative HEENT normocephalic Eyes PERRL and EOMs intact bilaterally Neck supple, no JVD and no carotid bruits Resp normal respiratory effort, normal air movement and clear to auscultation bilaterally Cardio regular rate and regular rhythm GI normal to inspection, nondistended, normoactive bowel sounds, non-tender and non-distended Extremity normal capillary refill General Extremity: Negative for edema Skin no rashes or lesions noted General Skin Exam: no breakdown Psych affect normal Appearance: appropriate Assessment & Plan Assessment/Plan (1) Osteoarthritis of left knee: (2) Hypertension: (3) Vitamin D deficiency: (4) GERD (gastroesophageal reflux disease): (5) Osteoarthritis: (6) Debility: PLAN: 85 year old female with below past medical history hospitalized for robotic assisted left total knee arthroplasty 09/07/[address] Pabon, postoperative course uncomplicated, admitted to TCU with debility, here for rehabilitation, strengthening, prior to discharge home alone. * Debility - PT/OT. * Pain - Tylenol 1000mg TID, Oxycodone 5mg Q4H PRN pain (6-10) * Bowel - Miralax 17gm daily, Senna/colace 2 tablets twice daily, Dulcolax 10mg daily PRN. * Adult immunization - Administer prevnar 13, pneumovax 23, fluzone, COVID19 vaccine as appropriate. * DVT prophylaxis - Aspirin 81mg twice daily thru 10/08/2020. * Vitamin D deficiency - Vitamin D3 25mcg daily. * GERD - Famotidine 20mg daily. * Hypertension - Lisinopril 5mg daily. * Osteoarthritis - Meloxicam 7.5mg twice daily. * Skin irritation - Calmoseptine topical twice daily. * Nutrition - MVI daily.
[2020-09-10 05:44] VITALS: BP 149/84; PULSE 84; RESP 18; TEMP 37.2; O2SAT 93
[2020-09-10] MEDS: Cholecalciferol (VIT D3) 25 MCG TABLET (1,000 UNITS) PO (05:46)
[2020-09-10] MEDS: Lisinopril 5 MG Tablet PO (05:46)
[2020-09-10] MEDS: Senna/Docusate Sodium 1 Tablet 2 TABLET PO (05:46)
[2020-09-10] MEDS: Menthol/Lanolin/Calamine/Znox 113 GM Tube 1 APPLIC TOPICAL ×2 (05:46→16:27)
[2020-09-10] MEDS: Famotidine 20 MG Tablet PO (05:46)
[2020-09-10] MEDS: Acetaminophen 500 MG Tablet 1000 MG PO ×3 (05:46→20:44)
[2020-09-10 05:50] LABS: Absolute Neutrophil Count 6.4 X10^3/uL (2.0-7.7); Basophil# 0.02 X10^3/uL; Basophil% 0.2 % (0-1); Eosinophil# 0.07 X10^3/uL; Eosinophils% 0.7 % (0-5); Hematocrit 38.5 % (37-47); Hemoglobin 12.6 g/dL (12.0-15.0); Lymphocyte % 20.9 % (19-41); Mean Corp Hgb Conc 32.7 g/dL (32-36); Mean Corpuscular Hgb 32.7 pg (27.0-32.0); Mean Platelet Vol. 10.6 fl (6.2-12.0); Monocyte# 1.06 X10^3/uL; Monocyte% 11.1 % (0-10); NRBC Flagged by Analyzer 0 % (0-5); Neutrophil # 6.38 X10^3/uL (2.7-7.7); Neutrophil % 66.7 % (47-70); Platelet Count 222 K/mm3 (150-450); RBC Distribution Width CV 14.7 % (11.6-14.6); RBC Distribution Width SD 54.4 fl (35.1-43.9); Red Blood Count 3.85 M/mm3 (4.2-5.4); White Blood Count 9.6 K/mm3 (4.4-11.0)
[2020-09-10 06:16] LABS: Anion Gap 6 (5-15); BUN 20 mg/dL (7-18); BUN/Creat Ratio 37.4 RATIO (10-20); Calcium,Total 8.9 mg/dL (8.5-10.1); Chloride 108 mmol/L (98-107); Creatinine, Serum 0.54 mg/dL (0.55-1.02); EST Glomerular Filtration Rate 115 mL/min (>60); Est Glom Filt Rate - Afr Amer 139 mL/min (>60); Estimated Creatinine Clearance 29.01 ml/min; Glucose 99 mg/dL (74-106); Potassium 3.7 mmol/L (3.5-5.1); Sodium Level 142 mmol/L (136-145)
[2020-09-10] MEDS: Multivitamins,Therapeutic Tablet 1 TABLET PO (09:34)
[2020-09-10] MEDS: Meloxicam 7.5 MG Tablet PO ×2 (09:34→16:27)
[2020-09-10] MEDS: Aspirin 81 MG TAB.CHEW PO ×2 (09:34→16:28)
[2020-09-10] MEDS: Tuberculin,Purif.prot.deriv. 50 TU/ML Vial 0.1 ML ID (11:58)
[2020-09-10 14:43] VITALS: BP 141/59; PULSE 89; RESP 16; TEMP 36.5; O2SAT 97
--- NOTE | 2020-09-10 15:04 | PHA.CONS_ITS ---
Progress Note - Pharmacy Subjective: TCU Admission Objective: Allergies No Known Allergies Allergy (Verified 04/16/17 11:35) Current Medications Generic Name Dose Route Start Last Admin Trade Name Maite PRN Reason Stop Dose Admin Acetaminophen 1,000 mg 09/09/20 14:00 09/10/20 14:22 Acetaminophen 500 Mg Tablet PO 1,000 mg TID BRITTANY Administration Aspirin 81 mg 09/09/20 17:00 09/10/20 09:34 Aspirin 81 Mg Tab.Chew PO 10/08/20 19:50 81 mg BIDCM BRITTANY Administration Bisacodyl 10 mg 09/09/20 19:50 Bisacodyl 5 Mg Tablet PO DAILY PRN CONSTIPATION Calamine/Phenol 1 applic 09/09/20 18:00 09/10/20 05:46 Menthol/Lanolin/Calamine/Znox 113 Gm Tube TOPICAL 1 applic BID BRITTANY Administration Protocol Cholecalciferol 25 mcg 09/10/20 06:00 09/10/20 05:46 Cholecalciferol (Vit D3) 25 Mcg Tablet (1,000 Units) PO 25 mcg DAILY BRITTANY Administration Famotidine 20 mg 09/10/20 06:00 09/10/20 05:46 Famotidine 20 Mg Tablet PO 20 mg DAILY BRITTANY Administration Lisinopril 5 mg 09/10/20 06:00 09/10/20 05:46 Lisinopril 5 Mg Tablet PO 5 mg DAILY BRITTANY Administration Meloxicam 7.5 mg 09/09/20 17:00 09/10/20 09:34 Meloxicam 7.5 Mg Tablet PO 7.5 mg BIDCM BRITTANY Administration Multivitamins 1 tablet 09/10/20 08:00 09/10/20 09:34 Multivitamins,Therapeutic Tablet PO 1 tablet BREAKFAST BRITTANY Administration Oxycodone HCl 5 mg 09/09/20 19:51 Oxycodone 5 Mg Tablet PO Q4H PRN PRN Pain Score 4-10 Polyethylene Glycol 17 gm 09/10/20 06:00 09/10/20 05:47 Polyethylene Glycol 3350 17 Gm Packet PO Not Given DAILY BRITTANY Senna/Docusate Sodium 2 tablet 09/09/20 18:00 09/10/20 05:46 Senna/Docusate Sodium 1 Tablet PO 2 tablet BID BRITTANY Administration Tuberculin PPD 0.1 ml 09/17/20 10:00 Tuberculin,Purif.Prot.Deriv. 50 Tu/Ml Vial ID 09/17/20 10:01 X1 ONE Problem List (Last Reviewed 09/09/20 @ 19:[address] Edmond Waddell MD) Debility (Acute) Hypertension (Chronic) Osteoarthritis of left knee (Acute) Vitamin D deficiency (Chronic) GERD (gastroesophageal reflux disease) (Chronic) Osteoarthritis (Chronic) Vital Signs Temp Pulse Resp BP Pulse Ox 97.7 F L 89 16 141/59 H 97 09/10/20 14:43 09/10/20 14:43 09/10/20 14:43 09/10/20 14:43 09/10/20 14:43 Oxygen Delivery Method Room Air Weight: 76.113 kg Body Mass Index (BMI) 32.8 Sodium 142 mmol/L (136-145) 09/10/20 05:17 Potassium 3.7 mmol/L (3.5-5.1) 09/10/20 05:17 Chloride 108 mmol/L (98-107) H 09/10/20 05:17 Carbon Dioxide 28.0 mmol/L (21.0-32.0) 09/10/20 05:17 Anion Gap 6 (5-15) 09/10/20 05:17 BUN 20 mg/dL (7-18) H 09/10/20 05:17 Creatinine 0.54 mg/dL (0.55-1.02) L 09/10/20 05:17 Est GFR (MDRD) Af Amer 139 mL/min (>60) 09/10/20 05:17 Est GFR (MDRD) Non-Af 115 mL/min (>60) 09/10/20 05:17 BUN/Creatinine Ratio 37.4 RATIO (10-20) H 09/10/20 05:17 Glucose 99 mg/dL (74-106) 09/10/20 05:17 Assessment/Plan: 1. Pain: acetaminophen 1000mg PO TID and oxycodone 5mg PO Q4H PRN pain 4-10. Please continue to monitor for pain and PRN usage. 2. DVT prophylaxis: aspirin 81mg PO BIDCM thru 10/08/20. Please continue to monitor for S/S of bleeding and hemoglobin (last 12.6g/dL). 3. GERD: famotidine 20mg PO daily. Please continue to monitor for S/S of GERD and renal function. 4. Hypertension: lisinopril 5mg PO daily. Please continue to monitor BP (last 141/59), potassium (last 3.7mmol/L), cough and renal function. 5. Osteoarthritis: meloxicam 7.5mg PO BID. Please continue to monitor for S/S of bleeding and upset stomach. *6. Nutrition/vitamin D deficiency: multivitamin 1T PO breakfast and cholecalciferol 25mcg PO daily. Please consider ordering a vitamin D level if clinically appropriate. Patient does not have a vitamin D level in chart. Th anks. Psychotropic Medications: None Unnecessary Medications: None Bowel Regimen: Miralax 17gm PO daily, senna/docusate 2T PO BID and bisacodyl 10mg PO daily PRN constipation. Please continue to monitor for constipation and PRN usage. Date of Note:: 09/10/20
--- NOTE | 2020-09-10 15:15 | CASEMGMT ---
Social Work Met with pt for initial assessment. ARUNA discussed code status with pt and assisted in completing MOLST form. Pt wishes are full code with no intubation. MOLST communication to physician and nursing and placed in pt chart. ARUNA explained [facility] benefit, that NRD is 09/13/20 and continued stay is not gauranteed. Pt plans to return home alone at time of discharge. She has two sons who are supportive. BENEDICTO Pham
[2020-09-11 05:35] VITALS: BP 141/68; PULSE 81; RESP 16; TEMP 36.4; O2SAT 95
[2020-09-11] MEDS: Cholecalciferol (VIT D3) 25 MCG TABLET (1,000 UNITS) PO (05:36)
[2020-09-11] MEDS: Famotidine 20 MG Tablet PO (05:36)
[2020-09-11] MEDS: Lisinopril 5 MG Tablet PO (05:36)
[2020-09-11] MEDS: Acetaminophen 500 MG Tablet 1000 MG PO ×2 (05:36→13:27)
[2020-09-11] MEDS: Menthol/Lanolin/Calamine/Znox 113 GM Tube 1 APPLIC TOPICAL ×2 (05:37→17:05)
[2020-09-11] MEDS: Meloxicam 7.5 MG Tablet PO ×2 (09:07→17:05)
[2020-09-11] MEDS: Aspirin 81 MG TAB.CHEW PO ×2 (09:07→17:05)
[2020-09-11] MEDS: Multivitamins,Therapeutic Tablet 1 TABLET PO (09:07)
[2020-09-11 15:12] VITALS: BP 133/74; PULSE 76; RESP 16; TEMP 36.1; O2SAT 91
--- NOTE | 2020-09-12 03:52 | NURSING ---
Patient up most of the shift. Using restroom about every 45 minutes. Patient denies painful urination or burning.
[2020-09-12 06:04] VITALS: BP 162/76; PULSE 58; RESP 18; TEMP 36.5; O2SAT 96
[2020-09-12] MEDS: Lisinopril 5 MG Tablet PO (06:05)
[2020-09-12] MEDS: Cholecalciferol (VIT D3) 25 MCG TABLET (1,000 UNITS) PO (06:05)
[2020-09-12] MEDS: Famotidine 20 MG Tablet PO (06:05)
[2020-09-12] MEDS: Menthol/Lanolin/Calamine/Znox 113 GM Tube 1 APPLIC TOPICAL ×2 (06:06→17:07)
--- NOTE | 2020-09-12 06:07 | NURSING ---
Patient requesting for routine Tylenol to be changed to PRN. Patient stated, it's bad for my kidneys. Dr. Waddell updated.
[2020-09-12] MEDS: Meloxicam 7.5 MG Tablet PO ×2 (08:34→17:08)
[2020-09-12] MEDS: Multivitamins,Therapeutic Tablet 1 TABLET PO (08:34)
[2020-09-12] MEDS: Aspirin 81 MG TAB.CHEW PO ×2 (08:35→17:08)
[2020-09-12 14:48] VITALS: BP 153/76; PULSE 103; RESP 14; TEMP 36.5; O2SAT 98
[2020-09-12] MEDS: Acetaminophen 500 MG Tablet 1000 MG PO ×2 (14:55→19:50)
[2020-09-13 04:50] VITALS: BP 157/87; PULSE 97; RESP 20; TEMP 36.9; O2SAT 94
[2020-09-13] MEDS: Senna/Docusate Sodium 1 Tablet 2 TABLET PO (04:52)
[2020-09-13] MEDS: Famotidine 20 MG Tablet PO (04:52)
[2020-09-13] MEDS: Cholecalciferol (VIT D3) 25 MCG TABLET (1,000 UNITS) PO (04:52)
[2020-09-13] MEDS: Lisinopril 5 MG Tablet PO (04:52)
[2020-09-13] MEDS: Menthol/Lanolin/Calamine/Znox 113 GM Tube 1 APPLIC TOPICAL ×2 (04:54→12:24)
[2020-09-13] MEDS: Acetaminophen 500 MG Tablet 1000 MG PO (09:29)
[2020-09-13] MEDS: Aspirin 81 MG TAB.CHEW PO ×2 (09:30→16:14)
[2020-09-13] MEDS: Multivitamins,Therapeutic Tablet 1 TABLET PO (09:30)
[2020-09-13] MEDS: Meloxicam 7.5 MG Tablet PO ×2 (09:30→16:14)
[2020-09-13 14:04] VITALS: BP 130/56; PULSE 99; RESP 20; TEMP 36.5; O2SAT 95
[2020-09-13] MEDS: MELATONIN 3 MG TABLET PO (21:41)
[2020-09-14 05:12] VITALS: BP 145/68; PULSE 75; RESP 16; TEMP 36.3; O2SAT 95
[2020-09-14] MEDS: Cholecalciferol (VIT D3) 25 MCG TABLET (1,000 UNITS) PO (05:15)
[2020-09-14] MEDS: Famotidine 20 MG Tablet PO (05:15)
[2020-09-14] MEDS: Lisinopril 5 MG Tablet PO (05:15)
[2020-09-14] MEDS: Menthol/Lanolin/Calamine/Znox 113 GM Tube 1 APPLIC TOPICAL ×2 (05:16→17:47)
[2020-09-14] MEDS: Aspirin 81 MG TAB.CHEW PO ×2 (09:09→17:46)
[2020-09-14] MEDS: Meloxicam 7.5 MG Tablet PO ×2 (09:09→17:46)
[2020-09-14] MEDS: Multivitamins,Therapeutic Tablet 1 TABLET PO (09:09)
[2020-09-14 14:28] VITALS: BP 115/56; PULSE 83; RESP 16; TEMP 36.1; O2SAT 99
--- NOTE | 2020-09-14 16:48 | CHAPLAIN ---
Type of Pastoral Visit _x__ Initial Visit ___ Follow-up Visit ___ On-call Visit ___ General Patient Visit ___ Spiritual Assessment ___ Family Conference ___ Bereavement ___ Rapid Response ___ Code Blue ___ Other (describe below) Pastoral Care Referral From _x__ Patient ___ Family ___ Nurse ___ Physician ___ Water Systems Designer ___ Pad Machine Feeder ___ Other (describe below) Sacrament/Intervention _x__ Active listening ___ Anointing ___ Episcopal ___ Bereavement ___ Communion ___ Melly exploration ___ _x__ Life review _x__ Prayer ___ Reconciliation ___ Sacrament of Sick _x__ Supportive presence ___ Wedding ___ Other (describe below) Pastoral Comments
[2020-09-14] MEDS: Acetaminophen 500 MG Tablet 1000 MG PO (17:45)
[2020-09-14] MEDS: MELATONIN 3 MG TABLET PO (20:22)
[2020-09-15 00:13] VITALS: PULSE 99; RESP 14
[2020-09-15] MEDS: Menthol/Lanolin/Calamine/Znox 113 GM Tube 1 APPLIC TOPICAL ×2 (05:02→17:21)
[2020-09-15] MEDS: Cholecalciferol (VIT D3) 25 MCG TABLET (1,000 UNITS) PO (05:03)
[2020-09-15] MEDS: Famotidine 20 MG Tablet PO (05:03)
[2020-09-15] MEDS: Senna/Docusate Sodium 1 Tablet 2 TABLET PO (05:03)
[2020-09-15] MEDS: Lisinopril 5 MG Tablet PO (05:04)
[2020-09-15 07:22] VITALS: BP 133/68; PULSE 69; RESP 14; TEMP 37.3; O2SAT 99
[2020-09-15] MEDS: Multivitamins,Therapeutic Tablet 1 TABLET PO (08:57)
[2020-09-15] MEDS: Aspirin 81 MG TAB.CHEW PO ×2 (08:57→17:21)
[2020-09-15] MEDS: Meloxicam 7.5 MG Tablet PO ×2 (08:57→17:21)
--- NOTE | 2020-09-15 10:10 | CASEMGMT ---
BIMS and PHQ9 interviews completed on this date for MDS assessment. BENEDICTO Pham
--- NOTE | 2020-09-15 10:49 | CASEMGMT ---
Addendum entered by Nova Roberts 09/15/20 11:30: [facility] is able to accept pt with start of care on 09/21/20. Pt updated and son Shahram updated. BENEDICTO Pham Original Note: Social Work Plan of care meeting held today with pt and son Shahram present. Pt is receiving PT and OT and progressing well with therapy. Pt and son notified that NRD with insurance is 09/17 and that insurance plans to issue a notice of non coverage with a potential discharge date of 09/20/20. Pt and son express understanding and pt plans to return home alone. Therapy is recommending home health PT/OT/[facility] and pt is agreeable. provided list of [facility] providers including quality and resource use data and consistent with the patient's preferred geographic region, medical needs and insurance network. Pt preferred provider is [facility]. Pt has all needed DME. Referral made to [facility] for PT/OT/[facility] and will await determination if they can accept. Tenative Discharge Date 09/20/20 Discharge Disposition: Home alone, Home health PT/OT/[facility] BENEDICTO Pham
[2020-09-15 15:11] VITALS: BP 124/74; PULSE 91; RESP 17; TEMP 36.6; O2SAT 94
[2020-09-15] MEDS: Acetaminophen 500 MG Tablet 1000 MG PO (17:20)
--- NOTE | 2020-09-15 20:27 | DS.PCM_ITS ---
Providers Date of Admission: 09/09/20 Primary Care Physician: Dr. Miguel Maradiaga III, MD Reason For Visit: TOTAL LEFT KNEE REPLACEMENT Diagnosis Discharge Diagnosis (1) Osteoarthritis of left knee: Status: Acute Code(s): M17.12 - Unilateral primary osteoarthritis, left knee (2) Hypertension: Status: Chronic Code(s): I10 - Essential (primary) hypertension (3) Vitamin D deficiency: Status: Chronic Code(s): E55.9 - Vitamin D deficiency, unspecified (4) GERD (gastroesophageal reflux disease): Status: Chronic Code(s): K21.9 - Gastro-esophageal reflux disease without esophagitis (5) Osteoarthritis: Status: Chronic Code(s): M19.90 - Unspecified osteoarthritis, unspecified site (6) Debility: Status: Acute Code(s): R53.81 - Other malaise Medications at Discharge Home Medications lisinopril 5 mg PO DAILY 04/08/17 cholecalciferol (vitamin D3) 1,000 unit PO DAILY 04/16/17 acetaminophen 1,000 mg PO TID 04/20/17 aspirin 325 mg PO DAILY@0800 04/20/17 famotidine 20 mg PO DAILY #30 tab 05/02/17 aspirin 81 mg PO BID 09/09/20 meloxicam 7.5 mg PO BID 09/09/20 multivitamin 1 tab PO DAILY 09/09/20 Hospital Course Operations total knee replacement (Left.) Procedures None Summary of Care Provided Minutes Spent on Discharge: 35 Hospital Course: 85 year old female with below past medical history hospitalized for robotic assisted left total knee arthroplasty 09/07/[address] Pabon, postoperative course uncomplicated, admitted to TCU with debility, here for rehabilitation, strengthening, prior to discharge home alone. Discharge home alone 09/20/2020, [facility] PT/OT/METER/RELAY CRAFTSMAN. Physical Exam Const alert and oriented x3 General Appearance: cooperative HEENT normocephalic Eyes PERRL and EOMs intact bilaterally Neck supple, no JVD and no carotid bruits Resp normal respiratory effort, normal air movement and clear to auscultation bilaterally Cardio regular rate and regular rhythm GI normal to inspection, nondistended, normoactive bowel sounds, non-tender and non-distended Extremity normal capillary refill General Extremity: Negative for edema Skin no rashes or lesions noted General Skin Exam: no breakdown Psych affect normal Appearance: appropriate Medical Records Data Medical Nutrition Assessment Dietitian: Nutrition Therapy Diagnosis Start: 09/10/20 15:01 Freq: Status: Active Protocol: Document 09/15/20 17:21 [facility] (Rec: 09/15/20 17:21 [facility] [id number]) Nutrition Malnutrition Evidence of Malnutrition Exists No Intake Problem Inadequate Oral Intake Etiology r/t recent surgery Signs/Symptoms as evidenced by 25-74% meal intakes Status Resolved Problem Recommendation Dietitian Recommendations/Changes Will continue to provide ensure enlive w/ lunch for increased nutrition if consumed. Will continue to provide small portions of regular diet d/t res overwhelmed with amount of food served. Weight / BMI Weight Weight: 71.622 kg Body Mass Index (BMI) 32.8 ABG / Lab / Microbiology Data Result Diagrams: 09/10/20 05:17 09/10/20 05:17 D/C Instructions Discharge Diet: No restrictions Discharge Activity: Return to Normal Activity, May Shower and Use Walker Weight Bearing Status: Weight bearing as tolerated Call your doctor if you observe: Fever of 101 or Higher, Inability to urinate, Inability to have a bowel movement, Shortness of breath, Dizziness, Fainting spells, Swelling in the ankles, Chest pain and Uncontrolled pain Additional Instructions: Discharge home alone 09/20/2020, [facility] PT/OT/METER/RELAY CRAFTSMAN. Please Follow Up With: Shivam Cartagena PA-C When: As scheduled. Meaningful Use Info Meaningful Use Diagnoses (Choose all that apply): None applicable Discharge Plan Admission Admit Date/Time: 09/09/20 12:50 Primary Reason for Your Visit: Debility. Attending Provider: Edmond Waddell Chi Primary Care Provider: Miguel Maradiaga III Instructions Additional Instructions / Restrictions: [facility] Physical Therapy, Occupational Therapy, Home Health Aid Discharge Orders/Prescriptions Prescriptions: Continued lisinopril 5 MG tablet 5 mg PO DAILY RF: 0 cholecalciferol (vitamin D3) 2,000 UNIT tablet,chewable 1,000 unit PO DAILY RF: 0 aspirin 325 MG tablet 325 mg PO DAILY@0800 RF: 0 acetaminophen 500 MG tablet 1,000 mg PO TID RF: 0 famotidine 20 MG tablet 20 mg PO DAILY Qty: 30 RF: 0 multivitamin Tablet 1 tab PO DAILY RF: 0 meloxicam 7.5 mg Tablet 7.5 mg PO BID RF: 0 aspirin 81 mg Tablet 81 mg PO BID RF: 0 Discontinued polyethylene glycol 3350 17 GM packet 17 gm PO DAILY PRN (Reason: Constipation) Qty: 30 RF: 0 sennosides-docusate sodium [Senokot-S] 8.6-50 mg Tablet 2 tab-cap PO BID RF: 0 oxycodone 5 MG tablet 5 mg PO Q6H PRN PRN (Reason: Pain) RF: 0 Referrals / Follow Up: Miguel Maradiaga III, MD [Primary Care Provider] - Disposition Disposition (needs filled in before D/C Order can be placed): Home Health Service
[2020-09-15] MEDS: MELATONIN 3 MG TABLET PO (22:28)
[2020-09-16 06:24] VITALS: BP 161/50; PULSE 78; RESP 16; TEMP 36.8; O2SAT 99
[2020-09-16] MEDS: Famotidine 20 MG Tablet PO (06:25)
[2020-09-16] MEDS: Cholecalciferol (VIT D3) 25 MCG TABLET (1,000 UNITS) PO (06:25)
[2020-09-16] MEDS: Lisinopril 5 MG Tablet PO (06:25)
[2020-09-16] MEDS: Multivitamins,Therapeutic Tablet 1 TABLET PO (09:34)
[2020-09-16] MEDS: Aspirin 81 MG TAB.CHEW PO ×2 (09:34→17:52)
[2020-09-16] MEDS: Meloxicam 7.5 MG Tablet PO ×2 (09:34→17:52)
[2020-09-16] MEDS: Menthol/Lanolin/Calamine/Znox 113 GM Tube 1 APPLIC TOPICAL ×2 (09:37→17:52)
[2020-09-16 10:00] VITALS: PULSE 74; RESP 16; O2SAT 97
[2020-09-16 14:18] VITALS: BP 127/64; PULSE 78; RESP 16; TEMP 36.6; O2SAT 97
[2020-09-16] MEDS: Senna/Docusate Sodium 1 Tablet 2 TABLET PO (17:52)
[2020-09-16] MEDS: MELATONIN 3 MG TABLET PO (21:17)
[2020-09-17 06:01] LABS: Absolute Lymphocyte Count 1.75 X10^3/uL (0.83-4.51); Absolute Neutrophil Count 3.2 X10^3/uL (2.0-7.7); Basophil# 0.03 X10^3/uL; Basophil% 0.5 % (0-1); Eosinophil# 0.18 X10^3/uL; Hematocrit 37.7 % (37-47); Hemoglobin 12.2 g/dL (12.0-15.0); Lymphocyte # 1.75 X10^3/ul (0.83-4.51); Lymphocyte % 29.3 % (19-41); Mean Corp Hgb Conc 32.4 g/dL (32-36); Mean Corpuscular Hgb 32.9 pg (27.0-32.0); Mean Corpuscular Volume 101.6 fL (81-99); Monocyte# 0.75 X10^3/uL; Monocyte% 12.5 % (0-10); NRBC Flagged by Analyzer 0 % (0-5); Neutrophil # 3.24 X10^3/uL (2.7-7.7); Neutrophil % 54.2 % (47-70); Platelet Count 288 K/mm3 (150-450); RBC Distribution Width CV 14.6 % (11.6-14.6); RBC Distribution Width SD 54.4 fl (35.1-43.9); Red Blood Count 3.71 M/mm3 (4.2-5.4)
[2020-09-17 06:11] VITALS: BP 142/50; PULSE 74; RESP 16; TEMP 36.5; O2SAT 97
[2020-09-17] MEDS: Lisinopril 5 MG Tablet PO (06:14)
[2020-09-17] MEDS: Famotidine 20 MG Tablet PO (06:14)
[2020-09-17] MEDS: Cholecalciferol (VIT D3) 25 MCG TABLET (1,000 UNITS) PO (06:14)
[2020-09-17] MEDS: Menthol/Lanolin/Calamine/Znox 113 GM Tube 1 APPLIC TOPICAL ×2 (06:15→16:59)
[2020-09-17 06:35] LABS: Anion Gap 6 (5-15); BUN 16 mg/dL (7-18); BUN/Creat Ratio 29.9 RATIO (10-20); Calcium,Total 8.9 mg/dL (8.5-10.1); Chloride 107 mmol/L (98-107); Creatinine, Serum 0.54 mg/dL (0.55-1.02); EST Glomerular Filtration Rate 115 mL/min (>60); Est Glom Filt Rate - Afr Amer 139 mL/min (>60); Estimated Creatinine Clearance 29.01 ml/min; Glucose 89 mg/dL (74-106); Potassium 4.1 mmol/L (3.5-5.1); Sodium Level 141 mmol/L (136-145)
[2020-09-17] MEDS: Aspirin 81 MG TAB.CHEW PO ×2 (08:50→16:58)
[2020-09-17] MEDS: Meloxicam 7.5 MG Tablet PO ×2 (08:50→16:58)
[2020-09-17] MEDS: Multivitamins,Therapeutic Tablet 1 TABLET PO (08:51)
[2020-09-17] MEDS: Tuberculin,Purif.prot.deriv. 50 TU/ML Vial 0.1 ML ID (10:50)
--- NOTE | 2020-09-17 12:05 | CASEMGMT ---
Social Work NOMNOC received from insurance, ARUNA reviewed w/pt and pt signed, letter given to Chandni to send to insurance. Copy given to pt and copy placed on chart. SW called son Shahram to confirm that pt was cut from insurance. Plan is for discharge Sunday, and he would like to pick pt up by 1pm. ARTHUR Sales
[2020-09-17 14:11] VITALS: BP 120/53; PULSE 71; RESP 18; TEMP 36.2; O2SAT 96
[2020-09-17] MEDS: MELATONIN 3 MG TABLET PO (19:58)
[2020-09-18] MEDS: Polyethylene Glycol 3350 17 GM PACKET PO (05:09)
[2020-09-18] MEDS: Senna/Docusate Sodium 1 Tablet 2 TABLET PO (05:09)
[2020-09-18] MEDS: Cholecalciferol (VIT D3) 25 MCG TABLET (1,000 UNITS) PO (05:09)
[2020-09-18] MEDS: Menthol/Lanolin/Calamine/Znox 113 GM Tube 1 APPLIC TOPICAL ×2 (05:09→18:19)
[2020-09-18] MEDS: Famotidine 20 MG Tablet PO (05:09)
[2020-09-18 06:23] VITALS: BP 133/49; PULSE 67; RESP 12; TEMP 36.3; O2SAT 100
[2020-09-18] MEDS: Aspirin 81 MG TAB.CHEW PO ×2 (07:36→18:19)
[2020-09-18] MEDS: Meloxicam 7.5 MG Tablet PO ×2 (07:37→18:19)
[2020-09-18] MEDS: Multivitamins,Therapeutic Tablet 1 TABLET PO (07:37)
[2020-09-18 14:50] VITALS: BP 107/58; PULSE 80; RESP 17; TEMP 36.4; O2SAT 97
[2020-09-18] MEDS: MELATONIN 3 MG TABLET PO (22:25)
[2020-09-19 06:23] VITALS: BP 116/64; PULSE 78; RESP 16; TEMP 36.9; O2SAT 95
[2020-09-19] MEDS: Lisinopril 5 MG Tablet PO (06:25)
[2020-09-19] MEDS: Cholecalciferol (VIT D3) 25 MCG TABLET (1,000 UNITS) PO (06:25)
[2020-09-19] MEDS: Famotidine 20 MG Tablet PO (06:26)
[2020-09-19] MEDS: Menthol/Lanolin/Calamine/Znox 113 GM Tube 1 APPLIC TOPICAL ×2 (06:26→16:41)
[2020-09-19] MEDS: Multivitamins,Therapeutic Tablet 1 TABLET PO (09:51)
[2020-09-19] MEDS: Meloxicam 7.5 MG Tablet PO ×2 (09:52→16:39)
[2020-09-19] MEDS: Aspirin 81 MG TAB.CHEW PO ×2 (09:53→16:39)
[2020-09-19] MEDS: Acetaminophen 500 MG Tablet 1000 MG PO (09:55)
[2020-09-19 13:30] VITALS: PULSE 89; RESP 16
[2020-09-19 14:28] VITALS: BP 117/52; PULSE 71; RESP 16; TEMP 36.3; O2SAT 98
[2020-09-19] MEDS: MELATONIN 3 MG TABLET PO (21:32)
[2020-09-20 05:00] VITALS: BP 144/45; PULSE 67; RESP 16; TEMP 36.4; O2SAT 98
[2020-09-20] MEDS: Menthol/Lanolin/Calamine/Znox 113 GM Tube 1 APPLIC TOPICAL (06:08)
[2020-09-20] MEDS: Lisinopril 5 MG Tablet PO (06:09)
[2020-09-20] MEDS: Famotidine 20 MG Tablet PO (06:10)
[2020-09-20] MEDS: Senna/Docusate Sodium 1 Tablet 2 TABLET PO (06:10)
[2020-09-20] MEDS: Cholecalciferol (VIT D3) 25 MCG TABLET (1,000 UNITS) PO (06:10)
[2020-09-20] MEDS: Meloxicam 7.5 MG Tablet PO (09:15)
[2020-09-20] MEDS: Multivitamins,Therapeutic Tablet 1 TABLET PO (09:15)
[2020-09-20] MEDS: Aspirin 81 MG TAB.CHEW PO (09:16)
[2020-09-20 09:40] VITALS: PULSE 65; RESP 18; O2SAT 92
[2020-09-20 14:53] VITALS: BP 117/66; PULSE 73; RESP 18; TEMP 36.2; O2SAT 97
== END 2020-09-20 14:00 | disposition home health service (06) | DRG 561 ==
PROVIDERS: Admitting Provider Family Medicine Geriatric Medicine; PCP Family Medicine; Visit Provider Family Medicine Geriatric Medicine
DX: Z47.1 Aftercare following joint replacement surgery (principal); Z96.652 Presence of left artificial knee joint; M17.12 Unilateral primary osteoarthritis, left knee; E55.9 Vitamin D deficiency, unspecified; Z23 Encounter for immunization; I10 Essential (primary) hypertension; K21.9 Gastro-esophageal reflux disease without esophagitis; Z79.899 Other long term (current) drug therapy; Z79.82 Long term (current) use of aspirin
CPT/HCPCS: 36415; 80048; 85025; 90732; 97110; 97116; 97162; 97166; 97530; 97535; 97802; G0009

== ENCOUNTER 2021-02-09 13:23 | Outpatient (CLI) | payer MEDICARE, SELFPAY ==
--- NOTE | 2021-02-09 13:30 | CT_ITS ---
STUDY: CT RIGHT LOWER EXTREMITY WITHOUT CONTRAST REASON FOR EXAM: Right knee osteoarthritis, surgical planning. TECHNIQUE: Transaxial CT imaging of the lower extremity was performed. Coronal and sagittal images were reformatted. Individualized dose optimization techniques were used for this CT. COMPARISON: None. FINDINGS: Knee: There are marginal osteophytes and preservation of joint space of the medial femorotibial compartment. There is a a cyst in the proximal tibia at the insertion site of the posterior cruciate ligament. There are marginal osteophytes, joint space narrowing and subchondral eburnation of the lateral femorotibial compartment (coronal reconstruction 33). There are marginal osteophytes and joint space narrowing of the patellofemoral compartment (sagittal reconstruction 45). Normal proximal tibiofibular articulation. There is a small joint effusion. The quadriceps tendon is grossly normal. The patellar tendon is grossly normal. Normal Hoffa''s fat pad. There is vascular calcification. Hip: There is joint space narrowing of the right hip (coronal reconstruction 62). There are partially calcified uterine fibroids (coronal reconstruction 59). Ankle: Normal tibiotalar articulation. There is mild joint space narrowing of the posterior subtalar articulation (sagittal reconstruction 33). There is joint space narrowing of the talonavicular articulation (sagittal reconstruction 30). Normal visualized calcaneocuboid articulation. CT/Extremity Lower without Contra IMPRESSION: Right knee osteoarthritis. Electronically Signed: Geovanni Islas MD at 14:48 EST Tel , Service support ,
== END 2021-02-09 23:59 | disposition short-term general hospital (02) ==
PROVIDERS: PCP Physician Assistant; Referring Provider Specialist; Visit Provider Specialist
DX: M21.161 Varus deformity, not elsewhere classified, right knee (principal)
CPT/HCPCS: 73700

== ENCOUNTER 2021-02-23 11:34 | Observation (INO) | payer MEDICARE, SELFPAY ==
[2021-02-09 13:47] LABS: Absolute Lymphocyte Count 2.12 X10^3/uL (0.83-4.51); Absolute Neutrophil Count 4.7 X10^3/uL (2.0-7.7); Basophil# 0.03 X10^3/uL; Basophil% 0.4 % (0-1); Eosinophil# 0.07 X10^3/uL; Eosinophils% 0.9 % (0-5); Hematocrit 43.3 % (37-47); Hemoglobin 14.3 g/dL (12.0-15.0); Lymphocyte # 2.12 X10^3/ul (0.83-4.51); Lymphocyte % 27.7 % (19-41); Mean Corpuscular Hgb 32.2 pg (27.0-32.0); Mean Corpuscular Volume 97.5 fL (81-99); Mean Platelet Vol. 10.1 fl (6.2-12.0); Monocyte# 0.68 X10^3/uL; Monocyte% 8.9 % (0-10); NRBC Flagged by Analyzer 0 % (0-5); Neutrophil # 4.73 X10^3/uL (2.7-7.7); Platelet Count 269 K/mm3 (150-450); RBC Distribution Width CV 13.8 % (11.6-14.6); RBC Distribution Width SD 49.5 fl (35.1-43.9); Red Blood Count 4.44 M/mm3 (4.2-5.4); White Blood Count 7.6 K/mm3 (4.4-11.0)
[2021-02-09 14:07] LABS: Magnesium 2.1 mg/dL (1.6-2.6)
[2021-02-09 14:20] LABS: Albumin, Serum 3.7 g/dL (3.2-5.0); Anion Gap 8 (5-15); BUN 22 mg/dL (7-18); BUN/Creat Ratio 27.9 RATIO (10-20); Calcium,Total 10.2 mg/dL (8.5-10.1); Chloride 110 mmol/L (98-107); Creatinine, Serum 0.79 mg/dL (0.55-1.02); EST Glomerular Filtration Rate 73 mL/min (>60); Est Glom Filt Rate - Afr Amer 89 mL/min (>60); Glucose 99 mg/dL (74-106); Potassium 4.3 mmol/L (3.5-5.1); Sodium Level 142 mmol/L (136-145)
[2021-02-23] VITALS (12 sets, daily range): BP systolic 88–128; BP diastolic 41–89; PULSE 73–91; RESP 15–18; TEMP 36.3–36.9; O2SAT 95–99; BMI 29.2; BMI 30.7
[2021-02-23] MEDS: Lactated Ringers 1,000 ML 75 ML IV (07:30)
[2021-02-23] MEDS: Lactated Ringers 1,000 ML 999 ML IV ×2 (08:31→12:00)
[2021-02-23] MEDS: Celecoxib 200 MG Capsule 400 MG PO (08:32)
[2021-02-23] MEDS: Gabapentin 600 MG Tablet PO (08:32)
[2021-02-23] MEDS: Acetaminophen 500 MG Tablet 1000 MG PO ×3 (08:33→22:38)
[2021-02-23 08:46] LABS: Bedside Glucose 85 mg/dL (70-110)
[2021-02-23] MEDS: Lactated Ringers 1,000 ML 100 ML IV (09:32)
[2021-02-23] MEDS: Cefazolin 2 GM in 0.9% Normal Saline 100 ML IV (09:58)
[2021-02-23] MEDS: TXA 1000mg in NS100 100ml (IVPB at Incision) 660 MG IV (10:11)
[2021-02-23] MEDS: TXA 1000mg in NS100 100ml (IVPB at Closure) 660 MG IV (11:13)
--- NOTE | 2021-02-23 11:15 | PCM.OPRPT ---
Report of Operation Date of Procedure: 02/23/21 Pre-Operative Diagnosis: Right knee primary osteoarthritis Post-Operative Diagnosis: Right knee primary osteoarthritis Surgery/Procedure Performed:: Right minimally invasive robotic total knee replacement Description of Surgical Findings:: Stable knee with good patella tracking Surgeon: Scooby Pabon shingle weaver: Thomas Cartagena Type of Anesthesia: Spinal Anesthesiologist: Erwin Cortes Special Medications: 2 g Ancef, 1 g TXA at incision, 1 g TXA closure, 10 mg Decadron, joint cocktail (5 mg Duramorph, 30 mL of 0.5% Ropivicaine, 1000 units of epinephrine, 30 mg of Toradol) Specimen's removed: Bony cuts Estimated Blood Loss (mL): 75 Fluids Replaced: 1400 mL crystalloid Description of Procedure: Implants used: 1. Dorris size 3 triathlon cruciate retaining distal femoral press-fit component 2. Sandy size 3 press-fit tritanium tibial baseplate 3. Sandy X3 10 mm CS polyethylene 4. Sandy X3 29 mm asymmetric patella Brief history operative indications: 86-year-old F with history of right knee osteoarthritis with radiographic findings with loss of joint space, osteophyte formation and subchondral sclerosis. Failed conservative measures as mentioned in the H&P. Discussion of total knee arthroplasty as well as risk and benefits were discussed the patient including but not limited to blood loss, DVTs, PEs, neurovascular damage, general risk of anesthesia including loss of life, and stiffness or instability were discussed with patient. Patient demonstrated understanding and was able to sign informed consent. Procedure: On the date of procedure patient's right lower extremity was marked in the preoperative area. The patient was then taken back to the operating room where the patient was placed on the table in the supine position. All bony prominences were identified a well-padded. Anesthesia assumed control of the C-spine and airway and remained controlled throughout the remainder of the procedure. A tourniquet was placed on the right upper thigh and the leg was prepped in a sterile fashion. The surgeon then scrubbed at this time .Upon reentering the room right lower extremity was draped in a standard orthopedic fashion. A timeout was then called and everyone agreed upon the side, the site, the procedure to be performed, patient's identity and antibiotics given. Esmarch bandage was used to exsanguinate the extremity and the tourniquet was placed up to 250 mmHg with the knee in flexion. A midline skin incision was made and sharp dissection was taken down through skin subcutaneous tissue and fat. The standard medial parapatellar incision was made and the patella was subluxed laterally. An Appropriate deep MCL release was done and the fat pad was resected. Our attention was then directed to the patella. The patella was everted and a flat resection was made. The knee was then flexed up in 2 femoral pins were placed inside the incision and 2 tibial pins were placed outside the incision in the medial tibia bicortically. Once this was completed the 2 checkpoints in the femur and tibia were placed. Knee was then flexed up and the bony landmarks were registered. Once this was completed knee was taken through range of motion and manually stressed allowing us to a plan for an appropriate tibial cut. The robotic arm was brought into the field sterilely and checkpoint and saw were registered. Based on the patient's deformity the tibial cut was made in 3 degrees varus. At this time the tensioner was then placed in the joint and ligament tension was checked at 90 degrees and full extension. Based on the patient's ligamentous tension appropriate adjustments were made to the operative plan and ligament releases were done. Once we were happy with our operative plan with balanced flexion and extension gaps our attention was directed to the femur. The robot was brought into the field sterilely and registered. Posterior condylar cuts, anterior chamfer cuts and anterior cuts were appropriately made for a size 3 femur. When these were completed the saws were switched out in the distal femoral and posterior chamfer cuts were made. Protecting the soft tissue throughout this time. A size 3 tibial base plate was selected. the knee was flexed to 90 degrees and the soft tissues and posterior osteophytes were removed from the joint. 40 cc of the periarticular injection was injected into the posterior medial corner of the joint. The appropriate trials were then placed on the femur and tibia. A trial polyethylene was trialed to ensure proper balancing and stability of the knee. The appropriate tibial internal rotation was then marked with a bovie. Our attention was then directed to the patella. The lug holes were drilled and the patella trial was placed. Patellar tracking was checked and deemed appropriate. Once we were happy lug holes were drilled for the femur and trial components were removed. the tibia was subluxed and pinned into place and the keel was punched and drilled appropriately. Final components were verified and opened, and cement was mixed in a vacuum. NuORDER Simplex cement was used. The wound was copiously irrigated with normal saline. When the cement was ready the components were impacted into place starting with the tibia, femur and finally cementing the patella. The trial poly component was placed and the knee was placed in full extension. All excess cement was removed in the process. Once the cement had cured the tracking, alignment and balance were verified and a size 10 mm CS polyethylene component was placed. Once the final components were placed a 3-minute dilute Betadine lavage was performed followed by an Irrisept lavage was performed and the wound was copiously irrigated with normal saline solution and the periarticular injection was given. The wound was closed in a layer médnez fashion using #1 vicryl interrupted sutures for the arthrotomy, 2-0 interrupted Vicryl suture for the subcuticular layer and tristin for final skin closure. A sterile compressive dressing was then placed. The patient was then awakened from anesthesia, transferred to the rbard and transferred to the PACU for recovery. Post op plan DVT ppx: ASA 81mg BID, thigh high compression stockings Follow up: in office in 2 weeks for wound check PT: to start POD #0 at hospital, outpatient PT should be arranged. My physician advertising sales assistant was a vital part of this case. He was important in appropriate retraction during the case, and protection of soft tissues during bony cuts. His intimate knowledge of the case and my steps aided in safe and expedient completion of the procedure as well as appropriate position of the leg during the case. He was also vital in assisting with closure under my direct supervision. Due to the complexity of this case robotic arm was used to assist in the surgery to improve accuracy and clinical outcomes. Complications No intraoperative complications Admit VTE Documentation VTE Present on Admission: No VTE Mechan Device Prophylaxis: SCD's and Thigh High VENTURA Hose VTE Pharm Prophylaxis ordered?: Yes
--- NOTE | 2021-02-23 12:48 | RAD_ITS ---
STUDY: X-RAY - RIGHT KNEE REASON FOR EXAM: Postoperative evaluation of right knee arthroplasty. TECHNIQUE: 2 view(s) of the knee. COMPARISON: CT images 02/09/2021. FINDINGS: There is a right total knee arthroplasty without evidence of complication. There is postoperative gas in the soft tissues and overlying skin tristin. RAD/Knee 1 or 2 Views IMPRESSION: Uncomplicated right total knee arthroplasty. Electronically Signed: Geovanni Islas MD at 14:10 EST Tel , Service support ,
[2021-02-23] MEDS: Lactated Ringers 1,000 ML 125 ML IV (13:20)
--- NOTE | 2021-02-23 14:49 | PCM.PN.HOSP ---
Documented by User: ISABELLA Stevenson 02/23/21 14:54 Subjective Subjective Patient seen and examined. Patient sitting in bed no distress noted. Patient denies any pain at this time. Dressing to right knee dry and intact. Objective Data Objective Data Vital Signs: Vital Signs Temp Pulse Resp BP Pulse Ox 97.4 F L 87 16 93/72 98 02/23/21 13:54 02/23/21 13:54 02/23/21 13:54 02/23/21 13:54 02/23/21 13:54 Oxygen Flow Rate (L/min) 2 Oxygen Delivery Method Nasal Cannula Weight: 156 lb 15.506 oz Body Mass Index (BMI) 30.7 Intake & Output: Intake and Output for Last 24 Hours 02/21/21 02/22/21 02/23/21 23:59 23:59 23:59 Intake Total 4434 / 4434 Balance 4434 / 4434 Lab / Micro Data Result Diagrams: 02/09/21 13:12 02/09/21 13:12 Labs: Laboratory Results - last 24 hr 02/23/21 08:28: POC Glucose 85 Micro: Microbiology 02/09/21 13:12 Swab (Method) Nasal Screen MRSA/MSSA - Final Radiography Diagnostic Testing: Radiology Impression Knee X-Ray 02/23/21 12:48 IMPRESSION: Uncomplicated right total knee arthroplasty. Electronically Signed: Geovanni Islas MD at 14:10 EST Tel , Service support , Physical Exam Const alert, oriented x3 and no apparent distress HEENT head/scalp atraumatic Head and Scalp: normocephalic Eyes conjunctivae normal and no scleral icterus Neck full ROM and supple General: trachea midline Resp normal respiratory effort, normal air movement and clear to auscultation bilaterally Effort and Inspection: able to speak in complete sentences and symmetric chest movement Cardio regular rate, regular rhythm, S1 normal heart sound and S2 normal heart sound GI normal to inspection, nondistended, normoactive bowel sounds, soft to palpation and non-tender Extremity no clubbing, cyanosis or edema Peripheral Pulses: Yes pulses 2+ throughout Right Lower Extremity: knee joint inspection (Swollen postop), palpation (Tender), ROM (Limited) and neurovascular exam (Intact) Skin no rashes or lesions noted Skin Narrative: Dressing to right knee dry and intact Neuro oriented x3, moves all extremities, no focal motor deficits and no sensory deficits noted Sensorium / Orientation: awake and alert Speech: speech normal Psych affect normal Assessment & Plan Assessment/Plan (1) Hypertension: QUALIFIERS: Hypertension type: primary hypertension Qualified Code(s): I10 - Essential (primary) hypertension (2) GERD (gastroesophageal reflux disease): QUALIFIERS: Esophagitis presence: without esophagitis Qualified Code(s): K21.9 - Gastro-esophageal reflux disease without esophagitis PLAN: 1. Primary hypertension -Continue lisinopril 5 mg daily -Vital signs per protocol, currently mildly hypotensive however patient is stable and asymptomatic 2. GERD -Continue famotidine 3. Right total knee replacement -Postop day 0 -Pain medication regimen per Ortho -PT and OT to see -Walks a cam and as needed acetaminophen DVT prophylaxis-SCDs This patient was seen by Mulu Mc NP-C under the supervision of Dr. Roa. 10 minutes spent in clinical coordination of patient's plan of care. Documented by User: Dr. Armani Roa MD 02/23/21 17:52 Subjective Subjective Patient sitting on the bed. Had right TKR done by Dr. Pabon today. Patient had 2 times urinated. No chest pain or shortness of breath. No abdominal pain. Patient walked to the bathroom. Objective Data Lab / Micro Data Result Diagrams: 02/09/21 13:12 02/09/21 13:12 Physical Exam Narrative General: Alert, Oriented x3, Cooperative HEENT: Atraumatic, PERRLA, EOMI, Normocephalic Oral: No Gingival or Mucosal Lesions/ Ulcerations Neck: Supple, No JVD, Negative Carotid Bruits Lungs: Air entry equal in bilateral lung bases. No crepitation/rhonchi Cardiovascular: Regular rate, Regular Rhythm, Normal S1, Normal S2, No murmurs Abdomen: Bowel Sounds Present, Soft, Non Tender, Non-Distended : No renal angle tenderness. No suprapubic tenderness. Extremities: No edema, Capillary Refill Less than 3 Seconds Skin: No rashes, No breakdown Musculoskeletal: Status post right TKR. Dressing and ice bag. No Tenderness to Palpation of other joints or Extremities Neurological: Cranial nerves II-XII grossly intact, DTR 2+/4 and Symmetrical, Neuro grossly intact Psych/Mental Status: Normal Affect, Appropriate. Assessment & Plan Assessment/Plan (1) Osteoarthritis of left knee: PLAN: This patient was seen in conjunction with BLANCA Hardwick. I have independently interviewed and examined the patient and reviewed pertinent history, examination findings, laboratory and plan of management. I have reviewed the note and agree with the documented findings with the few additional points. In brief, patient is admitted by Dr. Moyer for elective right TKR. Patient had right minimally invasive robotic TKR on 02/23/2021. Patient spontaneously voided urine 2 times after surgery. She is walking to bathroom. No chest pain or shortness of breath. Her comorbidity includes hypertension, GERD, osteoarthritis and constipation. Home medication reconciliation reconciliation done. VT prophylaxis as per orthopedic surgeon. High risk of DVT because of TKR. Recommend NOAC for 35 days. I have discussed my assessment with BLACNA Hardwick and orders have been reviewed. Charges/Coding Visit Charges Office Visits / Consults: 25346 OP Consult L3
[2021-02-23] MEDS: Ensure Surgery 237 ML LIQUID PO (16:17)
[2021-02-23] MEDS: Cefazolin 1 GM/50 ML BAG IV (17:16)
[2021-02-23] MEDS: traMADol 50 MG Tablet PO (20:10)
[2021-02-23] MEDS: Senna/Docusate Sodium 1 Tablet 2 TABLET PO (22:38)
[2021-02-23] MEDS: Aspirin 81 MG TAB.CHEW PO (22:38)
[2021-02-24] MEDS: Cefazolin 1 GM/50 ML BAG IV (01:05)
[2021-02-24 01:06] VITALS: BP 109/51; PULSE 65; RESP 18; TEMP 36.6; O2SAT 94
[2021-02-24 04:23] LABS: Hematocrit 34.1 % (37-47); Hemoglobin 11.3 g/dL (12.0-15.0); Mean Corp Hgb Conc 33.1 g/dL (32-36); Mean Corpuscular Hgb 32.4 pg (27.0-32.0); Mean Corpuscular Volume 97.7 fL (81-99); Mean Platelet Vol. 10.3 fl (6.2-12.0); Platelet Count 183 K/mm3 (150-450); RBC Distribution Width CV 13.9 % (11.6-14.6); RBC Distribution Width SD 49.5 fl (35.1-43.9); Red Blood Count 3.49 M/mm3 (4.2-5.4); White Blood Count 9.3 K/mm3 (4.4-11.0)
[2021-02-24 04:46] LABS: Anion Gap 6 (5-15); BUN 17 mg/dL (7-18); BUN/Creat Ratio 22.4 RATIO (10-20); Calcium,Total 8.7 mg/dL (8.5-10.1); Chloride 108 mmol/L (98-107); Creatinine, Serum 0.76 mg/dL (0.55-1.02); EST Glomerular Filtration Rate 77 mL/min (>60); Est Glom Filt Rate - Afr Amer 93 mL/min (>60); Estimated Creatinine Clearance 28.47 ml/min; Glucose 148 mg/dL (74-106); Potassium 4.3 mmol/L (3.5-5.1); Sodium Level 139 mmol/L (136-145)
[2021-02-24] MEDS: traMADol 50 MG Tablet PO (05:56)
[2021-02-24] MEDS: Acetaminophen 500 MG Tablet 1000 MG PO ×3 (05:56→21:35)
[2021-02-24 05:58] VITALS: BP 107/60; PULSE 60; RESP 16; TEMP 36.6; O2SAT 96
[2021-02-24] MEDS: Aspirin 81 MG TAB.CHEW PO ×2 (09:14→17:02)
[2021-02-24] MEDS: Lisinopril 5 MG Tablet PO (09:14)
[2021-02-24] MEDS: Multivitamins,Therapeutic Tablet 1 TABLET PO (09:14)
[2021-02-24] MEDS: Cholecalciferol (VIT D3) 25 MCG TABLET (1,000 UNITS) 50 MCG PO (09:14)
[2021-02-24] MEDS: Senna/Docusate Sodium 1 Tablet 2 TABLET PO (09:15)
[2021-02-24 09:25] VITALS: BP 129/63; PULSE 68; RESP 16; TEMP 36.9; O2SAT 96
--- NOTE | 2021-02-24 09:59 | PCM.PN.ORT ---
Subjective Subjective The patient was sitting in bed upon examination. Patient denies any chest pain, shortness of breath, dizziness, lightheadedness, nausea or vomiting, or calf pain. Pain is controlled on medications. No adverse overnight events. Overall patient is doing well. She was working with therapy and did well today. Plan is for patient to go to the transitional care unit at [facility] tomorrow on February 25, 2021. Objective Data Objective Data Vital Signs: Vital Signs Temp Pulse Resp BP Pulse Ox 97.9 F 60 16 107/60 96 02/24/21 05:58 02/24/21 05:58 02/24/21 05:58 02/24/21 05:58 02/24/21 05:58 Oxygen Flow Rate (L/min) 2 Oxygen Delivery Method Room Air Weight: 71.2 kg Body Mass Index (BMI) 30.7 Intake & Output: Intake and Output for Last 24 Hours 02/22/21 02/23/21 02/24/21 23:59 23:59 23:59 Intake Total 6284 / 6284 1310 / 1310 Output Total 200 / 200 Balance 6084 / 6084 1310 / 1310 Lab / Micro Data Result Diagrams: 02/24/21 03:57 02/24/21 03:57 Labs: Laboratory Results - last 24 hr 02/24/21 03:57: WBC 9.3, RBC 3.49 L, Hgb 11.3 L, Hct 34.1 L, MCV 97.7, MCH 32.4 H, MCHC 33.1, RDW Std Deviation 49.5 H, RDW Coeff of Salo 13.9, Plt Count 183, MPV 10.3 02/24/21 03:57: Sodium 139, Potassium 4.3, Chloride 108 H, Carbon Dioxide 25.0, Anion Gap 6, BUN 17, Creatinine 0.76, Estim Creat Clear Calc 28.47, Est GFR (MDRD) Af Amer 93, Est GFR (MDRD) Non-Af 77, BUN/Creatinine Ratio 22.4 H, Glucose 148 H, Calcium 8.7 Micro: Microbiology 02/09/21 13:12 Swab (Method) Nasal Screen MRSA/MSSA - Final Radiography Diagnostic Testing: Radiology Impression Knee X-Ray 02/23/21 12:48 IMPRESSION: Uncomplicated right total knee arthroplasty. Electronically Signed: Geovanni Islas MD at 14:10 EST Tel , Service support , Physical Exam Narrative Vital signs stable and afebrile. Patient is able to plantarflex and dorsiflex actively. Sensation is intact to light touch to saphenous, sural, superficial and deep peroneal, and tibial distribution. Main Dressing is clean dry and intact. Distal pin site dressing is with old drainage Negative Homans bilaterally, negative signs and symptoms of DVT. Const alert, oriented x3 and no apparent distress Assessment & Plan Assessment/Plan (1) Status post total right knee replacement: PLAN: 1. S/P right total knee arthroplasty POD #1 2. Continue Pain Medications: Tylenol, meloxicam, tramadol 3. DVT Prophylaxis: Take 81 mg aspirin twice daily for 4 weeks postoperatively for DVT prophylaxis 4. PT/OT: Weightbearing as tolerated 5. H & H: 11.3/34.1, asymptomatic. Postoperative anemia secondary to acute blood loss from surgery without any intra operative complications. 6. Consultation with medicine service 7. Encouraged Incentive Spirometry 8. Disposition: Plan will be for patient to be discharged tomorrow to the transitional care unit at [facility]. Continue with physical therapy today as well as medications listed above. I have reviewed the [place] Automated Rx Reporting System (OARRS) report for this patient for refill pattern and other prescriber involvement as part of the appropriate surveillance for the provision of acute and chronic controlled medications. The report was requested and reviewed on the date of this entry and was considered in the prescribing process.
--- NOTE | 2021-02-24 10:23 | CASEMGMT ---
Social Work SW received referral that pt will need SNF at time of discharge. SW met with pt and son in room to discuss discharge plan. Pt confirms that she will need sort term SNF placement prior to returning home alone. List of SNF providers including quality and resource use data and consistent with the patient's preferred geographic region, medical needs and insurance network. Pt preferred provider is [facility]. SW spoke with Chandni in TCU and they would have a bed available on Sunday and would be able to accept pt. Pt and son made aware. Physician updated. Plan: TCU, able to accept on Sunday. BENEDICTO Pham
--- NOTE | 2021-02-24 12:03 | PN.HOSP_ITS ---
Subjective Subjective some knee pain. otherwise feeling well. Objective Data Objective Data Vital Signs: Vital Signs Temp Pulse Resp BP Pulse Ox 36.9 C 68 16 129/63 H 96 02/24/21 09:25 02/24/21 09:25 02/24/21 09:25 02/24/21 09:25 02/24/21 09:25 Oxygen Flow Rate (L/min) 2 Oxygen Delivery Method Room Air Weight: 71.2 kg Body Mass Index (BMI) 30.7 Intake & Output: Intake and Output for Last 24 Hours 02/22/21 02/23/21 02/24/21 23:59 23:59 23:59 Intake Total 6284 / 6284 1310 / 1310 Output Total 200 / 200 Balance 6084 / 6084 1310 / 1310 Lab / Micro Data Result Diagrams: 02/24/21 03:57 02/24/21 03:57 Labs: Laboratory Results - last 24 hr 02/24/21 03:57: WBC 9.3, RBC 3.49 L, Hgb 11.3 L, Hct 34.1 L, MCV 97.7, MCH 32.4 H, MCHC 33.1, RDW Std Deviation 49.5 H, RDW Coeff of Salo 13.9, Plt Count 183, MPV 10.3 02/24/21 03:57: Sodium 139, Potassium 4.3, Chloride 108 H, Carbon Dioxide 25.0, Anion Gap 6, BUN 17, Creatinine 0.76, Estim Creat Clear Calc 28.47, Est GFR (MDRD) Af Amer 93, Est GFR (MDRD) Non-Af 77, BUN/Creatinine Ratio 22.4 H, Glucose 148 H, Calcium 8.7 Micro: Microbiology 02/09/21 13:12 Swab (Method) Nasal Screen MRSA/MSSA - Final Radiography Diagnostic Testing: Radiology Impression Knee X-Ray 02/23/21 12:48 IMPRESSION: Uncomplicated right total knee arthroplasty. Electronically Signed: Geovanni Islas MD at 14:10 EST Tel , Service support , Physical Exam Const alert and no apparent distress Constitutional Narrative: up in chair. Psych affect normal Assessment & Plan Assessment/Plan (1) Status post total right knee replacement: PLAN: 1. s/p right total knee replacement mgmt per ortho VTE prophylaxis: ASA BID 2. HTN: stable To TCU on 02/25. Medically stable for discharge Charges/Coding Visit Charges Inpatient E&M: 07356 [facility] L1
--- NOTE | 2021-02-24 14:10 | CASEMGMT ---
RN DALY NOTE: Intro role of CM to patient and [employer] form explained re: Observation status for treatment of right total knee replacement. Explained hospitalization will be paid per her insurance policy for Outpatient billing and condition will continue to be evaluated for Inpt necessity. Also let pt know that [facility] sends paper in the billing packet with their phone number if questions arise. Discussed Pharmacy section of [employer] form and self administered medication guideline. Pt verbalizes understanding and does not have further questions. Form signed, copy made and placed in chart, and original given to pt. Aury VICENTE RN CM
[2021-02-24 14:34] VITALS: BP 108/45; PULSE 70; RESP 18; TEMP 36.5; O2SAT 95
[2021-02-24 17:00] VITALS: BP 130/66; PULSE 62; RESP 18; TEMP 36.4; O2SAT 98
[2021-02-24 21:30] VITALS: BP 134/60; PULSE 62; RESP 16; TEMP 36.9; O2SAT 96
[2021-02-25 03:30] VITALS: BP 133/55; PULSE 61; RESP 16; TEMP 36.8; O2SAT 97
[2021-02-25] MEDS: Acetaminophen 500 MG Tablet 1000 MG PO ×2 (04:38→13:13)
--- NOTE | 2021-02-25 06:57 | PN.ORTHO_ITS ---
Subjective Subjective The patient was sitting in bed upon examination. Patient denies any chest pain, shortness of breath, dizziness, lightheadedness, nausea or vomiting, or calf pain. Patient states she does have increased pain in the right knee. She states pain is primarily with physical therapy. She is only using Tylenol for pain control. The plan is for patient to go to the transitional care unit today. Objective Data Objective Data Vital Signs: Vital Signs Temp Pulse Resp BP Pulse Ox 98.2 F 61 16 133/55 H 97 02/25/21 03:30 02/25/21 03:30 02/25/21 03:30 02/25/21 03:30 02/25/21 03:30 Oxygen Flow Rate (L/min) 2 Oxygen Delivery Method Room Air Weight: 71.2 kg Body Mass Index (BMI) 30.7 Intake & Output: Intake and Output for Last 24 Hours 02/23/21 02/24/21 02/25/21 23:59 23:59 23:59 Intake Total 6284 / 6284 1909 Output Total 200 / 200 Balance 6084 / 6084 1909 Lab / Micro Data Result Diagrams: 02/24/21 03:57 02/24/21 03:57 Micro: Microbiology 02/09/21 13:12 Swab (Method) Nasal Screen MRSA/MSSA - Final Physical Exam Narrative Vital signs stable and afebrile. Patient is able to plantarflex and dorsiflex actively. Sensation is intact to light touch to saphenous, sural, superficial and deep peroneal, and tibial distribution. Main dressing is clean dry and intact. Distal pin site dressing with old dried blood. Negative Homans bilaterally, negative signs and symptoms of DVT. Const alert, oriented x3 and no apparent distress Assessment & Plan Assessment/Plan (1) Status post total right knee replacement: PLAN: 1. S/P right total knee arthroplasty POD #2 2. Continue Pain Medications: Tylenol, meloxicam, tramadol. I explained to the patient that I would recommend if she is having increased pain with physical therapy that we try tramadol prior to therapy. I explained to her that if the pain is increased this could alter her ability to rehab appropriately 3. DVT Prophylaxis: Take 81 mg aspirin twice daily for 4 weeks postoperatively for DVT prophylaxis 4. PT/OT: Weightbearing as tolerated 5. H & H: Yesterday 11.3/34.1, asymptomatic. Lab work postoperative anemia secondary to acute blood loss from surgery without any intra operative complications. 6. Consultation with medicine service 7. Encouraged Incentive Spirometry 8. Disposition: COVID order was placed for discharge to the transitional care unit. Plan will be for discharge to the transitional care unit today as long as patient remains medically stable, pain controlled, and tolerating therapy. She will require her normal 2-week follow-up with us for x-rays and staple removal and incision check. Prescriptions will be attached to the chart. She will follow-up per our postop instructions. I have reviewed the [place] Automated Rx Reporting System (OARRS) report for this patient for refill pattern and other prescriber involvement as part of the appropriate surveillance for the provision of acute and chronic controlled medications. The report was requested and reviewed on the date of this entry and was considered in the prescribing process.
--- NOTE | 2021-02-25 07:02 | TREXTCAR_ITS ---
Diet 02/23/21 16:09 Diet: Regular - General Is pt able to select menu?: Yes Wound(s) RT KNEE: Wound Type: Surgical Incision Dressing Change: Okay to remove dressing on February 28, 2021 Therapies Weight Bearing: Weight bearing as tolerated (With walker) Physical Therapy: Eval and Treat Occupational Therapy: Eval and Treat Problem/Diagnosis (1) Status post total right knee replacement: Status: Acute Allergies/Procedures Done in Hospital Allergies No Known Allergies Allergy (Verified 02/23/21 08:12) Type of Care/Length of Stay Estimated LOS: Convalescent Care Less Than 30 days Type of Care Needed: Skilled Rehab Potential: Good Prognosis: Good Additional Orders/Day of Discharge Day of Discharge: 02/25/21 Discharge Plan Admission Admit Date/Time: 02/23/21 11:34 Attending Provider: Chaka Meraz Primary Care Provider: Quoc Landry Consulting Providers: Armani Roa Discharge Orders/Prescriptions Prescriptions: New sennosides-docusate sodium [Stool Softener-Stimulant Laxat] 8.6-50 mg Tablet 2 tab PO BID Qty: 0 RF: 0 tramadol 50 mg Tablet 50 - 100 mg PO Q6H PRN PRN (Reason: Pain Score 4-10) 7 Days Qty: 42 RF: 0 acetaminophen 500 mg Tablet 1,000 mg PO Q8 14 Days Qty: 84 RF: 0 meloxicam 7.5 mg Tablet 7.5 mg PO BID 14 Days Qty: 28 RF: 0 aspirin 81 mg Tablet,Chewable 81 mg PO BIDCM 30 Days Qty: 60 RF: 0 Continued lisinopril 5 MG tablet 5 mg PO DAILY RF: 0 cholecalciferol (vitamin D3) 2,000 UNIT tablet,chewable 2,000 unit PO DAILY RF: 0 multivitamin Tablet 1 tab PO DAILY RF: 0 famotidine 20 MG tablet 20 mg PO PRN PRN (Reason: Acid Reflux) RF: 0 Discontinued acetaminophen 500 MG tablet 500 mg PO PRN PRN (Reason: Pain) RF: 0 meloxicam 7.5 mg Tablet 7.5 mg PO PRN PRN (Reason: JOINT PAIN) RF: 0 aspirin 81 mg Tablet 81 mg PO BID RF: 0 Referrals / Follow Up: Quoc Landry PA [Primary Care Provider] - Thomas Cartagena PA-C [PHYSICIAN BUSINESS CHANGE MANAGER] - 03/16/21 10:45 am Disposition Disposition (needs filled in before D/C Order can be placed): [facility]
--- NOTE | 2021-02-25 07:09 | DCINST_ITS ---
Discharge Instructions Diet Discharge Diet: No restrictions Activity Discharge Activity: May Not Drive (while taking narcotic pain medications.) May shower in (days): 1 (Please turn dressing away from water. Okay to get wet as long as dressing is intact to skin.) Ice area for (Minutes): 20 (Every 1-2 hours while awake[address] Please place barrier between the skin and ice pack.) Weight Bearing Status: Weight bearing as tolerated Keep extremity elevated above heart level: Operative Extremity Dressing / Incision Call your doctor if your incision/area has: Continuous Slow Oozing, Sudden Increased Bleeding, Increased Pain/ Swelling, Increased Redness and Foul Smelling Discharge Call your doctor if you observe: Fever of 101 or Higher, Coldness, Increased Pain, Numbness or Tingling, Change in Color, Shortness of breath, Chest pain, Calf discomfort and Uncontrolled pain Remove Dressing in: 4 days (Okay to remove dressing on February 28, 2021) Additional Dressing/Incision Instructions:: Follow [facility] Post-op Instructions. Once postoperative dressing has been removed only use gentle soap and water over the incision. Do not use any ointments, Neosporin, salves, alcohol pads over the incision for 6 weeks postoperatively. Do not submerge underwater for 6 weeks postoperatively. Continue with VENTURA hose/elastic stockings for 2 weeks postoperatively. May remove at nighttime but needs to be placed back on the leg during the day. Do NOT use alcohol with narcotic pain medication. Do NOT make important decisions while taking narcotic medication. If you have problems with taking your medication (rash, itching, nausea, etc.) call the o ffice at once. Follow Up Care Test Results: Test results from this visit will be discussed in further detail at your follow-up appointment, if applicable. Discharge Plan Admission Admit Date/Time: 02/23/21 11:34 Attending Provider: Chaka Meraz Primary Care Provider: Quoc Landry Consulting Providers: Armani Roa Discharge Orders/Prescriptions Prescriptions: New sennosides-docusate sodium [Stool Softener-Stimulant Laxat] 8.6-50 mg Tablet 2 tab PO BID Qty: 0 RF: 0 tramadol 50 mg Tablet 50 - 100 mg PO Q6H PRN PRN (Reason: Pain Score 4-10) 7 Days Qty: 42 RF: 0 acetaminophen 500 mg Tablet 1,000 mg PO Q8 14 Days Qty: 84 RF: 0 meloxicam 7.5 mg Tablet 7.5 mg PO BID 14 Days Qty: 28 RF: 0 aspirin 81 mg Tablet,Chewable 81 mg PO BIDCM 30 Days Qty: 60 RF: 0 Continued lisinopril 5 MG tablet 5 mg PO DAILY RF: 0 cholecalciferol (vitamin D3) 2,000 UNIT tablet,chewable 2,000 unit PO DAILY RF: 0 multivitamin Tablet 1 tab PO DAILY RF: 0 famotidine 20 MG tablet 20 mg PO PRN PRN (Reason: Acid Reflux) RF: 0 Discontinued acetaminophen 500 MG tablet 500 mg PO PRN PRN (Reason: Pain) RF: 0 meloxicam 7.5 mg Tablet 7.5 mg PO PRN PRN (Reason: JOINT PAIN) RF: 0 aspirin 81 mg Tablet 81 mg PO BID RF: 0 Referrals / Follow Up: Quoc Landry PA [Primary Care Provider] - Thomas Cartagena PA-C [PHYSICIAN CONVEYOR INSTALLER] - 03/16/21 10:45 am Disposition Disposition (needs filled in before D/C Order can be placed): [facility]
[2021-02-25 07:51] LABS: Hematocrit 32.4 % (37-47); Hemoglobin 10.6 g/dL (12.0-15.0); Mean Corp Hgb Conc 32.7 g/dL (32-36); Mean Corpuscular Hgb 32.1 pg (27.0-32.0); Mean Corpuscular Volume 98.2 fL (81-99); Mean Platelet Vol. 10.4 fl (6.2-12.0); Platelet Count 180 K/mm3 (150-450); RBC Distribution Width CV 14.4 % (11.6-14.6); RBC Distribution Width SD 52.3 fl (35.1-43.9); White Blood Count 8.2 K/mm3 (4.4-11.0)
[2021-02-25 09:30] VITALS: BP 120/55; PULSE 58; RESP 18; TEMP 37; O2SAT 96
--- NOTE | 2021-02-25 10:01 | CASEMGMT ---
Social Work Pt is ready for discharge today. Orders faxed to TCU and Chandni from TCU updated that pt is ready for d/c to TCU today and they are able to accept. Pt updated and agreeable to d/c. Nursing aware pt can discharge when able. Plan: TCU today BENEDICTO Pham
[2021-02-25] MEDS: Aspirin 81 MG TAB.CHEW PO (10:05)
[2021-02-25] MEDS: Cholecalciferol (VIT D3) 25 MCG TABLET (1,000 UNITS) 50 MCG PO (10:05)
[2021-02-25] MEDS: Multivitamins,Therapeutic Tablet 1 TABLET PO (10:05)
[2021-02-25] MEDS: Lisinopril 5 MG Tablet PO (10:05)
[2021-02-25] MEDS: traMADol 50 MG Tablet PO (10:11)
[2021-02-25 13:13] VITALS: BP 127/57; PULSE 61; RESP 16; TEMP 37.3
== END 2021-02-25 14:14 ==
LOC: SDC 12:17 → MS2 12:17
PROVIDERS: Anesthesiology; Physician Assistant Surgical; Admitting Provider Specialist; PCP Physician Assistant; Referring Provider Specialist
PROC: 0SRC0JZ Replacement of Right Knee Joint with Synthetic Substitute, Open Approach (ICD-10-PCS; CPT 27447; principal; 2021-02-23 09:30)
DX: M17.11 Unilateral primary osteoarthritis, right knee (principal); K21.9 Gastro-esophageal reflux disease without esophagitis; I10 Essential (primary) hypertension; Z79.899 Other long term (current) drug therapy; Z79.82 Long term (current) use of aspirin
CPT/HCPCS: 27447; S2900; 64447; 36415; 73560; 80048; 82040; 82962; 83735; 85025; 85027; 87081; 87426; 96365; 96366; 97110; 97116; 97162; 97166; 97530; 97535; 99218; 99251; C1776; J7120; G0378; G0463

== ENCOUNTER 2021-02-25 14:26 | Inpatient (IN) | payer MEDICARE, SELFPAY ==
[2021-02-25 14:43] VITALS: BMI 32.2
[2021-02-25 15:01] VITALS: BP 131/53; PULSE 66; RESP 17; TEMP 36.4; O2SAT 96
--- NOTE | 2021-02-25 15:05 | HP.PCM_ITS ---
HPI - General General Date of Admission: 02/25/21 HPI Narrative MACIE WALLS, is a 86 Female who presents with followin02/23/2021 Dr. Pabon performed right minimally invasive robotic total knee replacement. 02/23/2021 Pain controlled postoperatively. Lisinopril 5mg daily for hypertension. Famotidine for GERD. PT/OT. 02/24/2021 Some right knee pain. Aspirin 81mg twice daily for DVT prophylaxis. 02/25/2021 Admit to TCU with debility, here for rehabilitation, strengthening, prior to discharge home alone. [facility] Medical History Ambulates with cane Arthritis Former smoker History of pain when walking History of steroid therapy History of stress test Hx of temporal arteritis Hypertension Wears dentures Wears glasses Home Medications lisinopril 5 mg PO DAILY 04/08/17 [History Last Taken 02/23/21] cholecalciferol (vitamin D3) 2,000 unit PO DAILY 04/16/17 [History Last Taken Unknown] multivitamin 1 tab PO DAILY 09/09/20 [History Last Taken Unknown] famotidine 20 mg PO PRN PRN 02/09/21 [History Last Taken 02/23/21] acetaminophen 1,000 mg PO Q8 02/25/21 [History Last Taken Unknown] aspirin 81 mg PO BIDCM 02/25/21 [History Last Taken Unknown] meloxicam 7.5 mg PO BID 02/25/21 [History Last Taken Unknown] sennosides-docusate sodium [Stool Softener-Stimulant Laxat] 2 tab PO BID 02/25/21 [History Last Taken Unknown] tramadol 50 - 100 mg PO Q6H PRN PRN 7 Days #42 tab 02/25/21 [Rx Last Taken Unknown] Allergy/AdvReac Type Severity Reaction Status Date / Time No Known Allergies Allergy Verified 02/23/21 08:12 Family History Father DVT (deep venous thrombosis) Brother Heart disease Son Heart disease Surgical History History of appendectomy History of arthroplasty of left knee Hx of colonoscopy Hx of shoulder surgery Hx of shoulder surgery Hx of total knee arthroplasty Status post total right knee replacement Social History household members: none Smoking Status: Never smoker alcohol intake: never substance use type: does not use ROS Constitutional Constitutional: Denies chills, fever(s) or weight gain ENT HEENT: Denies headache(s), nasal congestion or nasal discharge Cardiovascular Cardiovascular: Denies chest pain or palpitations Respiratory/Chest Respiratory/Chest: Denies cough, excessive phlegm production or shortness of breath with exertion Gastrointestinal Gastrointestinal: Denies abdominal pain, nausea or vomiting Genitourinary Genitourinary: Denies dysuria Musculoskeletal Musculoskeletal: Denies joint pain or joint swelling Integumentary Integumentary: Denies rash or wounds Neurologic Neurologic: Denies focal weakness, numbness or tingling Psychiatric Psychiatric: Denies anxiety, auditory hallucinations, depression, homicidal ideation or suicidal ideation Vital Signs Vital Signs Vital Signs: 02/25/21 15:01 Temperature 97.6 F L Temperature Source Temporal Pulse Rate 66 Respiratory Rate 17 Blood Pressure 131/53 H Blood Pressure Mean 79 Blood Pressure Source Monitor Blood Pressure Position Semi-Fowlers Blood Pressure Location Left Arm Pulse Ox 96 Oxygen Delivery Method Room Air Weight Weight: 69.899 kg Body Mass Index (BMI) 32.2 Physical Exam Const alert and oriented x3 General Appearance: cooperative HEENT normocephalic Eyes PERRL and EOMs intact bilaterally Neck supple, no JVD and no carotid bruits Resp normal respiratory effort, normal air movement and clear to auscultation bilaterally Cardio regular rate and regular rhythm GI normal to inspection, nondistended, normoactive bowel sounds, non-tender and non-distended Extremity normal capillary refill General Extremity: Negative for edema Skin no rashes or lesions noted General Skin Exam: no breakdown Psych affect normal Appearance: appropriate Assessment & Plan Assessment/Plan (1) Debility: (2) Status post total right knee replacement: (3) Hypertension: (4) Osteoarthritis: (5) Vitamin D deficiency: (6) Gastroesophageal reflux disease: PLAN: 86 year old female with below past medical history hospitalized for right total knee replacement per Dr. Pabon 02/23/2021, admitted to TCU with debility, here for rehabilitation, strengthening, prior to discharge home alone. * Debility - PT/OT. * Pain - Tylenol 1000mg q8h, Tramadol 50mg q6 prn pain (1-5), Oxycodone 2.5mg q4h prn cristina (6-10). * Bowel - Miralax 17gm daily, Senna/colace 2 tablets bid, Dulcolax 10mg daily prn. * Adult immunization - Administer prevnar 13, pneumovax 23, fluzone, covid19 vaccine as appropriate. * DVT prophylaxis - Aspirin 81mg twice daily thru 03/26/2021. * Vitamin D deficiency - D3 50mcg daily. * GERD - Famotidine 20mg daily prn. * Hypertension - Lisinopril 5mg daily. * Osteoarthritis - Meloxicam 7.5mg bid. * Nutrition - MVI daily.
[2021-02-25 15:33] VITALS: PULSE 63; RESP 18; O2SAT 93
--- NOTE | 2021-02-25 16:46 | CASEMGMT ---
Social Work Met with patient for initial assessment. Discussed code status and MOLST form. Pt wishes to be full code. Pt voiced to nursing DNR-CCA, with intubation. Clarified code status with pt. Pt acknowledged she gave different answers and wishes to be full code. Nursing notified. MOLST form communicated to , placed in chart. Explained [facility] insurance with NRD 03/01 and continued stay is not guaranteed with each review. The goal is for pt to return home alone at [facility]. SW to continue to follow for DC planning. Kelley Keller, ARNP NETSUITE DEVELOPER
[2021-02-25] MEDS: Aspirin 81 MG TAB.CHEW PO (16:53)
[2021-02-25] MEDS: Meloxicam 7.5 MG Tablet PO (16:53)
[2021-02-25] MEDS: Acetaminophen 500 MG Tablet 1000 MG PO (20:10)
[2021-02-26 05:37] VITALS: BP 139/73; PULSE 81
[2021-02-26] MEDS: Acetaminophen 500 MG Tablet 1000 MG PO ×3 (05:41→21:16)
[2021-02-26] MEDS: Lisinopril 5 MG Tablet PO (05:41)
[2021-02-26] MEDS: Senna/Docusate Sodium 1 Tablet 2 TABLET PO (05:41)
[2021-02-26] MEDS: Cholecalciferol (VIT D3) 25 MCG TABLET (1,000 UNITS) 50 MCG PO (05:41)
[2021-02-26] MEDS: Polyethylene Glycol 3350 17 GM PACKET PO (05:41)
[2021-02-26] MEDS: Meloxicam 7.5 MG Tablet PO ×2 (05:42→16:47)
[2021-02-26 05:43] LABS: Absolute Lymphocyte Count 1.37 X10^3/uL (0.83-4.51); Absolute Neutrophil Count 4.2 X10^3/uL (2.0-7.7); Basophil# 0.01 X10^3/uL; Basophil% 0.2 % (0-1); Eosinophil# 0.06 X10^3/uL; Eosinophils% 0.9 % (0-5); Hematocrit 34.4 % (37-47); Hemoglobin 11.1 g/dL (12.0-15.0); Lymphocyte # 1.37 X10^3/ul (0.83-4.51); Lymphocyte % 21.1 % (19-41); Mean Corp Hgb Conc 32.3 g/dL (32-36); Mean Corpuscular Hgb 32.1 pg (27.0-32.0); Mean Corpuscular Volume 99.4 fL (81-99); Mean Platelet Vol. 10.6 fl (6.2-12.0); Monocyte% 12.3 % (0-10); NRBC Flagged by Analyzer 0 % (0-5); Neutrophil # 4.24 X10^3/uL (2.7-7.7); Neutrophil % 65.2 % (47-70); Platelet Count 191 K/mm3 (150-450); RBC Distribution Width CV 14.6 % (11.6-14.6); RBC Distribution Width SD 53.1 fl (35.1-43.9); Red Blood Count 3.46 M/mm3 (4.2-5.4); White Blood Count 6.5 K/mm3 (4.4-11.0)
[2021-02-26] MEDS: oxyCODONE 5 MG Tablet 2.5 MG PO (05:45)
[2021-02-26 06:04] LABS: Anion Gap 2 (5-15); BUN 14 mg/dL (7-18); BUN/Creat Ratio 24.2 RATIO (10-20); Calcium,Total 8.8 mg/dL (8.5-10.1); Chloride 107 mmol/L (98-107); Creatinine, Serum 0.58 mg/dL (0.55-1.02); EST Glomerular Filtration Rate 105 mL/min (>60); Est Glom Filt Rate - Afr Amer 127 mL/min (>60); Estimated Creatinine Clearance 43.74 ml/min; Glucose 90 mg/dL (74-106); Potassium 4.4 mmol/L (3.5-5.1); Sodium Level 141 mmol/L (136-145)
[2021-02-26] MEDS: Multivitamins,Therapeutic Tablet 1 TABLET PO (08:25)
[2021-02-26] MEDS: Aspirin 81 MG TAB.CHEW PO ×2 (08:25→16:47)
[2021-02-26] MEDS: Tuberculin,Purif.prot.deriv. 50 TU/ML Vial 0.1 ML ID (10:37)
[2021-02-26 14:18] VITALS: BP 129/65; PULSE 68; RESP 18; TEMP 37.1
[2021-02-26 19:46] VITALS: PULSE 65; RESP 16; O2SAT 95
[2021-02-27] MEDS: Cholecalciferol (VIT D3) 25 MCG TABLET (1,000 UNITS) 50 MCG PO (05:12)
[2021-02-27] MEDS: Acetaminophen 500 MG Tablet 1000 MG PO ×3 (05:13→21:41)
[2021-02-27] MEDS: Lisinopril 5 MG Tablet PO (05:13)
[2021-02-27] MEDS: Meloxicam 7.5 MG Tablet PO ×2 (05:13→16:38)
[2021-02-27 05:17] VITALS: BP 136/52; PULSE 72
[2021-02-27] MEDS: Aspirin 81 MG TAB.CHEW PO ×2 (08:29→16:38)
[2021-02-27] MEDS: Multivitamins,Therapeutic Tablet 1 TABLET PO (08:29)
[2021-02-27 15:52] VITALS: BP 152/72; PULSE 67; RESP 16; TEMP 36.3; O2SAT 95
[2021-02-28] MEDS: Cholecalciferol (VIT D3) 25 MCG TABLET (1,000 UNITS) 50 MCG PO (05:50)
[2021-02-28] MEDS: Acetaminophen 500 MG Tablet 1000 MG PO ×3 (05:50→19:50)
[2021-02-28] MEDS: Lisinopril 5 MG Tablet PO (05:51)
--- NOTE | 2021-02-28 05:54 | NURSING ---
Offered to refill ice for polar care and pt declines. Ice off knee at this time. Instructed to call for staff when ready to reapply ice to knee. Call light w/ in reach.
[2021-02-28 05:56] VITALS: BP 140/55; PULSE 79
[2021-02-28] MEDS: Aspirin 81 MG TAB.CHEW PO ×2 (08:23→17:57)
[2021-02-28] MEDS: Meloxicam 7.5 MG Tablet PO ×2 (08:23→17:57)
[2021-02-28] MEDS: Multivitamins,Therapeutic Tablet 1 TABLET PO (08:23)
[2021-02-28 15:10] VITALS: BP 158/61; PULSE 66; RESP 16; TEMP 36.9; O2SAT 92
[2021-02-28] MEDS: Senna/Docusate Sodium 1 Tablet 2 TABLET PO (17:57)
--- NOTE | 2021-02-28 19:02 | NURSING ---
Surgical mepilex removed from right knee. Patient tolerated well. [place] intact and no drainage noted. Dry sterile dressing in place for comfort.
[2021-02-28 20:11] VITALS: PULSE 109; RESP 14; O2SAT 93
[2021-03-01] MEDS: Lisinopril 5 MG Tablet PO (05:31)
[2021-03-01] MEDS: Cholecalciferol (VIT D3) 25 MCG TABLET (1,000 UNITS) 50 MCG PO (05:31)
[2021-03-01] MEDS: Acetaminophen 500 MG Tablet 1000 MG PO ×3 (05:32→21:29)
[2021-03-01] MEDS: Multivitamins,Therapeutic Tablet 1 TABLET PO (08:06)
[2021-03-01] MEDS: Meloxicam 7.5 MG Tablet PO ×2 (08:06→17:26)
[2021-03-01] MEDS: Aspirin 81 MG TAB.CHEW PO ×2 (08:06→17:26)
--- NOTE | 2021-03-01 12:08 | PHA.CONS1_ITS ---
Progress Note - Pharmacy Subjective: [] TCU Admission Objective: Allergies No Known Allergies Allergy (Verified 02/23/21 08:12) Current Medications Generic Name Dose Route Start Last Admin Trade Name Maite PRN Reason Stop Dose Admin Acetaminophen 1,000 mg 02/25/21 22:00 03/01/21 05:32 Acetaminophen 500 Mg Tablet PO 1,000 mg Q8 BRITTANY Administration Aspirin 81 mg 02/25/21 17:00 03/01/21 08:06 Aspirin 81 Mg Tab.Chew PO 03/26/21 23:55 81 mg BIDCM BRITTANY Administration Bisacodyl 10 mg 02/25/21 15:16 Bisacodyl 5 Mg Tablet PO DAILY PRN Constipation Cholecalciferol 50 mcg 02/26/21 06:00 03/01/21 05:31 Cholecalciferol (Vit D3) 25 Mcg Tablet (1,000 Units) PO 50 mcg DAILY BRITTANY Administration Famotidine 20 mg 02/25/21 14:47 Famotidine 20 Mg Tablet PO DAILY PRN PRN Acid Reflux Lisinopril 5 mg 02/26/21 06:00 03/01/21 05:31 Lisinopril 5 Mg Tablet PO 5 mg DAILY BRITTANY Administration Meloxicam 7.5 mg 02/28/21 08:00 03/01/21 08:06 Meloxicam 7.5 Mg Tablet PO 7.5 mg 0800,1800 [facility] Administration Multivitamins 1 tablet 02/26/21 08:00 03/01/21 08:06 Multivitamins,Therapeutic Tablet PO 1 tablet BREAKFAST BRITTANY Administration Oxycodone HCl 2.5 mg 02/25/21 15:16 02/26/21 05:45 Oxycodone 5 Mg Tablet PO 2.5 mg Q4H PRN PRN Administration Pain Score 6-10 Polyethylene Glycol 17 gm 02/26/21 06:00 03/01/21 05:31 Polyethylene Glycol 3350 17 Gm Packet PO Not Given DAILY BRITTANY Senna/Docusate Sodium 2 tablet 02/25/21 18:00 03/01/21 05:31 Senna/Docusate Sodium 1 Tablet PO Not Given BID BRITTANY Tramadol HCl 50 mg 02/25/21 15:17 Tramadol 50 Mg Tablet PO Q6H PRN PRN Pain Score 1-5 Tuberculin PPD 0.1 ml 03/05/21 10:00 Tuberculin,Purif.Prot.Deriv. 50 Tu/Ml Vial ID 03/05/21 10:01 X1 ONE Problem List (Last Reviewed 02/25/21 @ 15:[address] Edmond Waddell MD) Gastroesophageal reflux disease (Acute) Vitamin D deficiency (Acute) Osteoarthritis (Acute) Hypertension (Chronic) Debility (Acute) Status post total right knee replacement (Acute) Vital Signs Temp Pulse Resp BP Pulse Ox 98.4 F 109 H 14 158/61 H 93 02/28/21 15:10 02/28/21 20:11 02/28/21 20:11 02/28/21 15:10 02/28/21 20:11 Oxygen Delivery Method Room Air Weight: 68.974 kg Body Mass Index (BMI) 32.2 Sodium 141 mmol/L (136-145) 02/26/21 05:18 Potassium 4.4 mmol/L (3.5-5.1) 02/26/21 05:18 Chloride 107 mmol/L (98-107) 02/26/21 05:18 Carbon Dioxide 32.0 mmol/L (21.0-32.0) 02/26/21 05:18 Anion Gap 2 (5-15) L 02/26/21 05:18 BUN 14 mg/dL (7-18) 02/26/21 05:18 Creatinine 0.58 mg/dL (0.55-1.02) 02/26/21 05:18 Est GFR (MDRD) Af Amer 127 mL/min (>60) 02/26/21 05:18 Est GFR (MDRD) Non-Af 105 mL/min (>60) 02/26/21 05:18 BUN/Creatinine Ratio 24.2 RATIO (10-20) H 02/26/21 05:18 Glucose 90 mg/dL (74-106) 02/26/21 05:18 Assessment/Plan: 1) Pain: Acetaminophen 1000mg po q8h scheduled, Oxycodone 2.5mg po q4h prn for pain 6-10, Tramadol 50mg po q6h prn for pain 1-5. Please continue to monitor prn usage and for signs/symptoms of increased pain. 2) GERD: Famotidine 20mg po daily prn for acid reflux. Please continue to monitor prn usage and for signs/symptoms of acid reflux. *3) Vitamin D deficiency: Cholecalciferol 50mcg (2000 units) po daily. I could not find a Vitamin D level in the pts chart. Please consider a yearly Vitamin D level. Thanks 4) Hypertension: Lisinopril 5mg po daily. Pts K+ is 4.4, BUN is 14, and SrCr is 0.58. Please continue to monitor labs. Pts average blood pressure over the last 7 readings is 140.7/61.6. Please continue to monitor. 5) DVT Prophylaxis: Aspirin 81mg po bid with meals. Please continue to monitor for signs/symptoms of bruising/bleeding as well as for dvt. *6) Osteoarthritis: Meloxicam 7.5mg po bid. Meloxicam is on the BEERS list of medications. NSAIDS have an increased risk of GI bleeding/peptic ulcer disease in pts that are 75 years or older. Use of proton pump inhibitor reduces but does not eliminate risk. Upper GI ulcers, gross bleeding, or perforation caused by NSAIDs occur in approximately 1% of patients treated for 3-6 months, and in about 2-4% of patients treated for 1 year. --Please document risk vs benefit analysis for Meloxicam use -If pt is continued on Meloxicam, please consider adding GI protectant. Psychotropic Medications: none Unnecessary Medications: none *Bowel Regimen: Bisacodyl 10mg po daily prn for constipation, Miralax 17gm po daily, Senna/Docusate 2 tablets po bid. Pt has refused 3 out of 4 Miralax doses, and 6 out of 8 Senna/Docusate doses. Please continue to monitor pt refusal. If pt continues to refuse doses, please consider changing to prn. Thanks Date of Note:: 03/01/21
[2021-03-01 14:36] VITALS: BP 143/66; PULSE 64; RESP 16; TEMP 36.8; O2SAT 95
[2021-03-01 18:39] VITALS: PULSE 64; RESP 14; O2SAT 95
[2021-03-02] MEDS: Acetaminophen 500 MG Tablet 1000 MG PO ×3 (05:57→22:34)
[2021-03-02] MEDS: Lisinopril 5 MG Tablet PO (05:57)
[2021-03-02] MEDS: Cholecalciferol (VIT D3) 25 MCG TABLET (1,000 UNITS) 50 MCG PO (05:57)
[2021-03-02 06:04] VITALS: BP 132/53; PULSE 71
[2021-03-02] MEDS: Multivitamins,Therapeutic Tablet 1 TABLET PO (09:14)
[2021-03-02] MEDS: Aspirin 81 MG TAB.CHEW PO ×2 (09:14→17:29)
[2021-03-02] MEDS: Meloxicam 7.5 MG Tablet PO ×2 (09:14→17:29)
--- NOTE | 2021-03-02 09:29 | CASEMGMT ---
Social Work SW completed the BIMS(15) and PHQ-9(2) w/pt. No indications of depression on PHQ-9 at this time other than being tired. Pt attributes it to being here and recovering. ARTHUR Sales
--- NOTE | 2021-03-02 09:35 | CASEMGMT ---
Social Work IDT met with patient and son for care plan meeting. Discussed patient's progress in PT/OT and nursing. Pt progressing well. [facility] with [facility] 03/08. Explained and provided insurance care plan. Therapy to make pt adlib in room per pt request. Son and pt requesting DC 03/08, in line with insurance. IDT agreeable. Pt and son requesting [facility] as pt does not have transportation available to her for outpatient therapy. Requesting to use [facility]. No DME needs. Son to transport. Referral made to [facility] PT/OT. Plan: DC home alone 03/08, [facility] PT/OT ROSE Stahl
[2021-03-02 13:08] VITALS: BP 122/54; PULSE 75; RESP 20; TEMP 37.1; O2SAT 96
--- NOTE | 2021-03-02 19:48 | DS.PCM_ITS ---
Providers Date of Admission: 02/25/21 Primary Care Physician: CORNELIUS Alba Reason For Visit: R TOTAL KNEE Diagnosis Discharge Diagnosis (1) Debility: Status: Acute Code(s): R53.81 - Other malaise (2) Status post total right knee replacement: Status: Acute Code(s): Z96.651 - Presence of right artificial knee joint (3) Hypertension: Status: Chronic Code(s): I10 - Essential (primary) hypertension (4) Osteoarthritis: Status: Acute Code(s): M19.90 - Unspecified osteoarthritis, unspecified site (5) Vitamin D deficiency: Status: Acute Code(s): E55.9 - Vitamin D deficiency, unspecified (6) Gastroesophageal reflux disease: Status: Acute Code(s): K21.9 - Gastro-esophageal reflux disease without esophagitis Medications at Discharge Home Medications lisinopril 5 mg PO DAILY 04/08/17 cholecalciferol (vitamin D3) 2,000 unit PO DAILY 04/16/17 multivitamin 1 tab PO DAILY 09/09/20 acetaminophen 1,000 mg PO Q8 02/25/21 aspirin 81 mg PO BIDCM 02/25/21 meloxicam 7.5 mg PO BID 02/25/21 Hospital Course Operations total knee replacement (Right.) Procedures None Summary of Care Provided Minutes Spent on Discharge: 35 Hospital Course: 86 year old female with below past medical history hospitalized for right total knee replacement per Dr. Pabon 02/23/2021, admitted to TCU with debility, here for rehabilitation, strengthening, prior to discharge home alone. Discharge home alone 03/08/2021, [facility] PT/OT. Aspirin 81mg twice daily thru 03/26/2021 for DVT prophylaxis. Physical Exam Const alert and oriented x3 General Appearance: cooperative HEENT normocephalic Eyes PERRL and EOMs intact bilaterally Neck supple, no JVD and no carotid bruits Resp normal respiratory effort, normal air movement and clear to auscultation bilaterally Cardio regular rate and regular rhythm GI normal to inspection, nondistended, normoactive bowel sounds, non-tender and non-distended Extremity normal capillary refill General Extremity: Negative for edema Skin no rashes or lesions noted General Skin Exam: no breakdown Psych affect normal Appearance: appropriate Weight / BMI Weight Weight: 68.974 kg Body Mass Index (BMI) 32.2 ABG / Lab / Microbiology Data Result Diagrams: 02/26/21 05:18 02/26/21 05:18 D/C Instructions Discharge Diet: No restrictions Discharge Activity: Return to Normal Activity, May Shower and Use Walker Weight Bearing Status: Weight bearing as tolerated Call your doctor if you observe: Fever of 101 or Higher, Inability to urinate, Inability to have a bowel movement, Shortness of breath, Fainting spells, Swelling in the ankles, Chest pain, Calf discomfort and Uncontrolled pain Additional Instructions: Discharge home alone 03/08/2021, [facility] Care PT/OT. Please Follow Up With: Thomas Cartagena PA-C When: As scheduled. Meaningful Use Info Meaningful Use Diagnoses (Choose all that apply): None applicable Discharge Plan Admission Admit Date/Time: 02/25/21 14:26 Primary Reason for Your Visit: Debility. Attending Provider: Edmond Waddell Chi Primary Care Provider: Quoc Landry Instructions Additional Instructions / Restrictions: Discharge home alone 03/08/2021, [facility] Care PT/OT. Discharge Orders/Prescriptions Prescriptions: Continued lisinopril 5 MG tablet 5 mg PO DAILY RF: 0 cholecalciferol (vitamin D3) 2,000 UNIT tablet,chewable 2,000 unit PO DAILY RF: 0 multivitamin Tablet 1 tab PO DAILY RF: 0 acetaminophen 500 mg tablet 1,000 mg PO Q8 RF: 0 meloxicam 7.5 mg tablet 7.5 mg PO BID RF: 0 aspirin 81 mg tablet,chewable 81 mg PO BIDCM RF: 0 Discontinued famotidine 20 MG tablet 20 mg PO PRN PRN (Reason: Acid Reflux) RF: 0 tramadol 50 mg Tablet 50 - 100 mg PO Q6H PRN PRN (Reason: Pain Score 4-10) 7 Days Qty: 42 RF: 0 sennosides-docusate sodium [Stool Softener-Stimulant Laxat] 8.6-50 mg tablet 2 tab PO BID RF: 0 Referrals / Follow Up: Quoc Landry PA [Primary Care Provider] - Disposition Disposition (needs filled in before D/C Order can be placed): Home Health Service
[2021-03-02 22:00] VITALS: PULSE 68; RESP 16; O2SAT 98
[2021-03-03] MEDS: Lisinopril 5 MG Tablet PO (05:59)
[2021-03-03] MEDS: Cholecalciferol (VIT D3) 25 MCG TABLET (1,000 UNITS) 50 MCG PO (05:59)
[2021-03-03] MEDS: Acetaminophen 500 MG Tablet 1000 MG PO ×3 (05:59→21:20)
[2021-03-03] MEDS: Multivitamins,Therapeutic Tablet 1 TABLET PO (08:21)
[2021-03-03] MEDS: Aspirin 81 MG TAB.CHEW PO ×2 (08:21→16:32)
[2021-03-03] MEDS: Meloxicam 7.5 MG Tablet PO ×2 (08:21→16:32)
[2021-03-03 14:43] VITALS: BP 115/63; PULSE 65; RESP 15; TEMP 36.4; O2SAT 94
--- NOTE | 2021-03-03 16:27 | CHAPLAIN ---
Type of Pastoral Visit _x__ Initial Visit ___ Follow-up Visit ___ On-call Visit ___ General Patient Visit ___ Spiritual Assessment ___ Family Conference ___ Bereavement ___ Rapid Response ___ Code Blue ___ Other (describe below) Pastoral Care Referral From _x__ Patient ___ Family ___ Nurse ___ Physician ___ Motel Keeper ___ Compliance Monitor ___ Other (describe below) Sacrament/Intervention _x__ Active listening ___ Anointing ___ Catholic ___ Bereavement ___ Communion ___ Melly exploration ___ _x__ Life review _x__ Prayer ___ Reconciliation ___ Sacrament of Sick _x__ Supportive presence ___ Wedding ___ Other (describe below) Pastoral Comments this patient was seen previously in a different admission; pt gives update on her life and her status about recovery and going home; pt has no new concerns
[2021-03-04] MEDS: Lisinopril 5 MG Tablet PO (05:41)
[2021-03-04] MEDS: Cholecalciferol (VIT D3) 25 MCG TABLET (1,000 UNITS) 50 MCG PO (05:41)
[2021-03-04] MEDS: Acetaminophen 500 MG Tablet 1000 MG PO ×3 (05:41→20:53)
[2021-03-04 05:43] VITALS: BP 128/56; PULSE 67
[2021-03-04] MEDS: Meloxicam 7.5 MG Tablet PO ×2 (08:32→17:31)
[2021-03-04] MEDS: Multivitamins,Therapeutic Tablet 1 TABLET PO (08:32)
[2021-03-04] MEDS: Aspirin 81 MG TAB.CHEW PO ×2 (08:32→17:31)
[2021-03-04 15:25] VITALS: BP 138/74; PULSE 67; RESP 16; TEMP 36.8; O2SAT 97
[2021-03-05] MEDS: Lisinopril 5 MG Tablet PO (06:00)
[2021-03-05] MEDS: Cholecalciferol (VIT D3) 25 MCG TABLET (1,000 UNITS) 50 MCG PO (06:00)
[2021-03-05] MEDS: Multivitamins,Therapeutic Tablet 1 TABLET PO (08:00)
[2021-03-05] MEDS: Aspirin 81 MG TAB.CHEW PO ×2 (08:00→17:00)
[2021-03-05] MEDS: Meloxicam 7.5 MG Tablet PO ×2 (08:00→18:00)
[2021-03-05] MEDS: Tuberculin,Purif.prot.deriv. 50 TU/ML Vial 0.1 ML ID (10:00)
[2021-03-05] MEDS: Acetaminophen 500 MG Tablet 1000 MG PO (14:00)
[2021-03-05 16:30] LABS: Anion Gap 3 (5-15); BUN 14 mg/dL (7-18); Calcium,Total 8.8 mg/dL (8.5-10.1); Chloride 108 mmol/L (98-107); Creatinine, Serum 0.61 mg/dL (0.55-1.02); EST Glomerular Filtration Rate 99 mL/min (>60); Est Glom Filt Rate - Afr Amer 119 mL/min (>60); Estimated Creatinine Clearance 43.16 ml/min; Glucose 94 mg/dL (74-106); Potassium 4.2 mmol/L (3.5-5.1); Sodium Level 140 mmol/L (136-145)
[2021-03-05 21:49] LABS: Absolute Lymphocyte Count 1.54 X10^3/uL (0.83-4.51); Absolute Neutrophil Count 2.6 X10^3/uL (2.0-7.7); Basophil# 0.02 X10^3/uL; Basophil% 0.4 % (0-1); Eosinophil# 0.08 X10^3/uL; Eosinophils% 1.7 % (0-5); Hematocrit 33.3 % (37-47); Hemoglobin 11.2 g/dL (12.0-15.0); Lymphocyte # 1.54 X10^3/ul (0.83-4.51); Lymphocyte % 32.3 % (19-41); Mean Corp Hgb Conc 33.6 g/dL (32-36); Mean Corpuscular Hgb 33.3 pg (27.0-32.0); Mean Corpuscular Volume 99.1 fL (81-99); Mean Platelet Vol. 9.9 fl (6.2-12.0); Monocyte% 10.5 % (0-10); NRBC Flagged by Analyzer 0 % (0-5); Neutrophil # 2.62 X10^3/uL (2.7-7.7); Neutrophil % 54.9 % (47-70); Platelet Count 269 K/mm3 (150-450); RBC Distribution Width CV 14.8 % (11.6-14.6); RBC Distribution Width SD 53.8 fl (35.1-43.9); Red Blood Count 3.36 M/mm3 (4.2-5.4); White Blood Count 4.8 K/mm3 (4.4-11.0)
[2021-03-06] MEDS: Lisinopril 5 MG Tablet PO (05:04)
[2021-03-06] MEDS: Cholecalciferol (VIT D3) 25 MCG TABLET (1,000 UNITS) 50 MCG PO (05:04)
[2021-03-06] MEDS: Acetaminophen 500 MG Tablet 1000 MG PO ×4 (05:05→14:28)
[2021-03-06] MEDS: Multivitamins,Therapeutic Tablet 1 TABLET PO (08:24)
[2021-03-06] MEDS: Meloxicam 7.5 MG Tablet PO ×2 (08:24→16:44)
[2021-03-06] MEDS: Aspirin 81 MG TAB.CHEW PO ×2 (08:24→16:45)
[2021-03-06 16:00] VITALS: BP 148/62; PULSE 64; RESP 16; TEMP 36.7; O2SAT 96
[2021-03-06 21:00] VITALS: PULSE 71; RESP 14; O2SAT 94
[2021-03-07] MEDS: Acetaminophen 500 MG Tablet 1000 MG PO ×3 (05:42→20:39)
[2021-03-07] MEDS: Cholecalciferol (VIT D3) 25 MCG TABLET (1,000 UNITS) 50 MCG PO (05:42)
[2021-03-07] MEDS: Lisinopril 5 MG Tablet PO (05:43)
--- NOTE | 2021-03-07 05:54 | NURSING ---
unable to chart on patients scheduled hs dose of tylenol. When downtime meds were put in, the ones for 03/05 were put in for 03/06. This made it look like she had already gotten 4000 mg tylenol and would not allow another dose.
[2021-03-07] MEDS: Meloxicam 7.5 MG Tablet PO ×2 (08:04→17:18)
[2021-03-07] MEDS: Multivitamins,Therapeutic Tablet 1 TABLET PO (08:04)
[2021-03-07] MEDS: Aspirin 81 MG TAB.CHEW PO ×2 (08:04→17:18)
--- NOTE | 2021-03-07 09:39 | NURSING ---
Addendum entered by Yolis Bell 03/07/21 10:17: office returned call with order to DC tristin from incisions as long as no signs of infection. Original Note: notified ortho office regarding pt still has tristin in incisions x2, pt does not have appt until 03/16 with Esenhaur until then. pt is discharging 03/08/21 Ita stated that she will call us back to see what he would like us to do. awaiting return call.
--- NOTE | 2021-03-07 13:12 | NURSING ---
This nurse removed 24 tristin from right knee and rivera. Patient tolerated procedure well.
[2021-03-07 17:10] VITALS: BP 147/54; PULSE 72; RESP 14; TEMP 36.5; O2SAT 96
[2021-03-07 18:59] VITALS: PULSE 72; RESP 14; O2SAT 95
[2021-03-08 05:58] VITALS: BP 129/70; PULSE 68
[2021-03-08] MEDS: Lisinopril 5 MG Tablet PO (05:59)
[2021-03-08] MEDS: Cholecalciferol (VIT D3) 25 MCG TABLET (1,000 UNITS) 50 MCG PO (05:59)
[2021-03-08] MEDS: Acetaminophen 500 MG Tablet 1000 MG PO (06:02)
[2021-03-08] MEDS: Multivitamins,Therapeutic Tablet 1 TABLET PO (08:16)
[2021-03-08] MEDS: Aspirin 81 MG TAB.CHEW PO (08:16)
[2021-03-08] MEDS: Meloxicam 7.5 MG Tablet PO (08:16)
[2021-03-08 09:09] VITALS: PULSE 56; RESP 18; O2SAT 98
[2021-03-08 09:39] VITALS: BP 140/64; PULSE 69; RESP 18; TEMP 36.4; O2SAT 98
--- NOTE | 2021-03-09 09:55 | MDS.RN ---
Information for the mds was obtained from review of the clinical record, interview of resident, staff, and direct observation of resident's care. Information Systems, billing dept, and [facility] aware no PDPM codes generated with finalized mds assessment.
== END 2021-03-08 10:15 | disposition home health service (06) | DRG 561 ==
PROVIDERS: Admitting Provider Family Medicine Geriatric Medicine; PCP Physician Assistant; Visit Provider Family Medicine Geriatric Medicine
DX: Z47.1 Aftercare following joint replacement surgery (principal); E55.9 Vitamin D deficiency, unspecified; K21.9 Gastro-esophageal reflux disease without esophagitis; M19.90 Unspecified osteoarthritis, unspecified site; I10 Essential (primary) hypertension; Z79.899 Other long term (current) drug therapy; Z87.891 Personal history of nicotine dependence; Z79.82 Long term (current) use of aspirin; Z96.651 Presence of right artificial knee joint
CPT/HCPCS: 36415; 80048; 85025; 87426; 97110; 97116; 97150; 97162; 97166; 97530; 97535; 97802

== ENCOUNTER 2022-09-06 22:16 | Observation (INO) | payer MEDICARE, SELFPAY ==
[2022-09-06 22:20] VITALS: BP 98/59; PULSE 102; RESP 18; TEMP 37.5; O2SAT 97; BMI 30.4
[2022-09-06 22:30] VITALS: BP 108/69
--- NOTE | 2022-09-06 22:34 | CT_ITS ---
INDICATION: trauma EXAMINATION: CT BRAIN - CT Head or Brain W/O Contrast Injection TECHNIQUE: Multiple axial images were obtained of the head without intravenous contrast. A radiation dose optimization technique was used for this scan. IV Contrast dosage and agent: None. COMPARISON: None FINDINGS: BRAIN PARENCHYMA: No intra- or extra-axial hemorrhage. No evidence of acute infarct. No intracranial mass or mass effect. Mild periventricular and subcortical white matter hypodense chronic small vessel white matter ischemic change. There is preservation of the montgomery/white matter interface. Posterior fossa structures are unremarkable. Carotid and vertebral atherosclerosis. CSF SPACES: Mild global cerebral volume loss. No hydrocephalus. Basal cisterns are patent. CALVARIUM, SKULL BASE, PARANASAL SINUSES AND MASTOID AIR CELLS: No acute osseous finding. Paransasal sinuses are clear. Mastoid air cells are clear. ORBITS: Both globes, extraocular muscles, optic nerves and retrobulbar fat appear unremarkable. ASPECTS Score for Acute Strokes: 10 CT/Brain/Head without Contrast IMPRESSION: No CT evidence of acute intracranial hemorrhage or injury. Mild senescent changes with atherosclerosis Electronically Signed: Napoleon Jean MD at 23:54 EDT Reading Location ID and State: [facility] / [place] Tel , Service support ,
--- NOTE | 2022-09-06 22:36 | ED.VIS.FALL ---
HPI HPI - Fall History of Present Illness Chief Complaint: Fall Informant: patient, EMS and SNF Narrative Narrative: Patient presents from assisted living after an unwitnessed fall in her bathroom. Noticed she hit her head but she does not remember details of the fall. She thinks maybe she was dizzy. States she had 1 other episode of dizziness a day or 2 ago but it was relatively brief and cannot specify any details about it. She denies any earache or tinnitus or vision trouble right now. She denies any other recent issues. Staff at assisted [facility] where she has been for 3 days, states that she was a little disoriented but did not know much about her because she has only been there for a few days. When asked what the patient was before that she states she was at home. She is there because of financial issues she states, and had to sell her house. [facility] Medical History (Updated 09/07/22 @ 01:[address] Dylan Hugo MD) Ambulates with cane Arthritis Chronic pain Former smoker Headache, unspecified History of pain when walking History of steroid therapy History of stress test Hx of temporal arteritis Hypertension Polymyalgia rheumatica Primary osteoarthritis Urge incontinence Vitamin D deficiency Wears dentures Wears glasses Home Medications lisinopril 5 mg tablet 5 mg PO DAILY BP 04/08/17 [History Last Taken 02/23/21] cholecalciferol (vitamin D3) 50 mcg (2,000 unit) chewable tablet 2,000 unit PO DAILY supplement 04/16/17 [History Last Taken Unknown] multivitamin 1 tab PO DAILY supplement 09/09/20 [History Last Taken Unknown] acetaminophen 500 mg tablet 1,000 mg PO Q8 pain 02/25/21 [History Last Taken Unknown] aspirin 81 mg chewable tablet 81 mg PO BIDCM heart health 02/25/21 [History Last Taken Unknown] meloxicam 7.5 mg tablet 7.5 mg PO BID antiinflammatory 02/25/21 [History Last Taken Unknown] meloxicam 7.5 mg tablet 7.5 mg PO 0800,1800 30 days #60 tabs 03/08/21 [Rx Last Taken Unknown] Allergy/AdvReac Type Severity Reaction Status Date / Time alendronate sodium Allergy Unknown unknown Verified 09/06/22 22:30 [From Fosamax] amoxicillin Allergy Unknown unknown Verified 09/06/22 22:29 Family History Father DVT (deep venous thrombosis) Brother Heart disease Son Heart disease Surgical History History of appendectomy History of arthroplasty of left knee Hx of colonoscopy Hx of shoulder surgery Hx of shoulder surgery Hx of total knee arthroplasty Status post total right knee replacement Social History household members: none Smoking Status: Never smoker alcohol intake: never substance use type: does not use ROS ROS ED Constitutional Constitutional ED: Denies chills or fever(s) Eyes Eyes: Denies change in vision or diplopia ENT ENT ED: Denies ear pain, epistaxis, facial pain or rhinorrhea Cardiovascular Cardiovascular: Denies chest pain or palpitations Respiratory/Chest Respiratory/Chest: Denies cough or dyspnea Gastrointestinal Gastrointestinal: Denies abdominal pain, diarrhea, melena, nausea or vomiting Genitourinary Genitourinary ED: Denies dysuria or hematuria Musculoskeletal Musculoskeletal: Denies back pain, extremity pain or neck pain Integumentary Denies abscess, Abrasions, laceration or rash Neurologic Neurologic: Reports as per HPI and dizziness; Denies confusion, headache(s), paresthesias or weakness EXAM Physical Exam Const Vital Signs: 09/06/22 22:20 09/06/22 22:30 09/06/22 22:30 Temperature 99.5 F H Temperature Source Oral Pulse Rate 102 H Respiratory Rate 18 Respiratory Effort Normal Blood Pressure 98/59 L 108/69 Blood Pressure Mean 72 82 Pulse Ox 97 Oxygen Delivery Method Room Air 09/07/22 00:12 09/07/22 00:42 Temperature Temperature Source Pulse Rate 98 94 Respiratory Rate 16 18 Respiratory Effort Blood Pressure 117/79 104/57 L Blood Pressure Mean 91 72 Pulse Ox 92 97 Oxygen Delivery Method Room Air Room Air Positive well nourished and well developed General Appearance ED: well developed and NAD HEENT Reports TM's clear and nasal mucous membranes and turbinates normal HEENT Narrative: Contusion without boggy hematoma occipital scalp, no crepitance or depression no other signs of HEENT trauma. Face and Sinus: Negative for facial tenderness Tympanic Membrane ED: Yes TM's clear Eyes PERRL and EOMs intact bilaterally Visual Acuity: other Other Details: no entrapment or pain with extraocular movements Neck full ROM, no lymphadenopathy and supple General: Negative for tenderness Chest Wall inspection of chest normal and palpation of chest normal Chest: symmetrical chest wall rise; Negative for crepitus or tenderness Resp normal respiratory effort and clear to auscultation bilaterally Percussion: other equal BS bilat Cardio no murmurs Cardio Narrative: Mild tachycardia, regular Rate: regular rate Rhythm: regular rhythm GI normal to inspection, nondistended, normoactive bowel sounds, soft to palpation, non-tender and no masses Back/Spine no CVA tenderness and normal ROM Cervical Spine: Negative for cervical spine tenderness Thoracic Spine / Upper Back: Negative for thoracic spinal tenderness Lumbar Spine / Lower Back: Negative for lumbar spinal tenderness Extremity normal to inspection and full ROM General Extremety ED: Negative for tenderness Neuro oriented x3, CN's II-XII intact bilaterally, moves all extremities, no focal motor deficits and no sensory deficits noted Angus Coma Scale: document GCS findings Spontaneous Obeys Commands Oriented 15 Sensorium / Orientation: awake and alert Psych mental status grossly normal and thought process normal Skin no wounds Lesions: no lesions Rashes: no rashes MDM MDM MDM Narrative Medical decision making narrative: CT of the patient's head was performed due to her injury/fall, I reviewed the images and the interpretation which I agree with, negative for any acute traumatic abnormality/injury. Also obtained a medical work-up to work-up her dizziness. The troponin is nonspecifically elevated with a normal EKG, we are repeating it in 2 hours. Otherwise she has a mild leukocytosis of 12.9 and urine is consistent with infection. This was treated empirically with Rocephin 1 g IV and a culture was sent. Her lactic acid is well within normal limits, her vital signs are normal although that her initial 1 was borderline 98/59, it is up over 100/60 without specific treatment. She was given some IV fluids, her temperature is low-grade, hence I was more suspicious of an infection somewhere. Her pulse ox is 97% room air, 2 view chest x-ray my interpretation shows chronic changes but no acute infiltrates/consolidation, radiology in agreement. Her lungs are clear as well. Her repeat troponin went up. This makes me more suspicious maybe the patient had a transient dysrhythmia. Family arrived, son and [id number], they states she is mostly at her baseline mental status but she was a little disoriented when they first got there, she does not have a history of dementia. Patient cannot describe account of dizziness she had she does not remember. Possible she was lightheaded due to hypotension, possible she had peripheral vertigo, possible that she is a little disoriented because she hit her head. Will admit to observation telemetry. Aspirin given. History & Record Review Discussion w/independent historian: EMS personnel, Patient and Family Additional record(s) reviewed:: Prior labs Lab Data Attestation: I reviewed the patient's lab results. Labs: Laboratory Results - last 24 hr 09/06/22 09/07/22 09/07/22 22:45 00:05 00:45 WBC 12.9 H RBC 3.73 L Hgb 12.0 Hct 36.9 L MCV 98.9 MCH 32.2 H MCHC 32.5 RDW Std Deviation 50.9 H RDW Coeff of Salo 14.0 Plt Count 218 MPV 9.7 Immature Gran % (Auto) 0.700 Neut % (Auto) 85.1 H Lymph % (Auto) 5.1 L [place] % (Auto) 8.9 Eos % (Auto) 0.0 Baso % (Auto) 0.2 Absolute Neuts (auto) 10.9 H Absolute Lymphs (auto) 0.66 L Nucleated RBC % 0 Sodium 137 Potassium 3.8 Chloride 106 Carbon Dioxide 26.0 Anion Gap 5 BUN 23 H Creatinine 0.92 Estim Creat Clear Calc 30.36 Est GFR (MDRD) Af Amer 74 Est GFR (MDRD) Non-Af 61 BUN/Creatinine Ratio 25.1 H Glucose 129 H Lactic Acid 1.1 Calcium 9.4 Troponin I High Sens 59 H 68 H Urine Color Yellow Urine Clarity Clear Urine pH 5.0 Ur Specific [place] 1.020 Urine Protein 30 H Urine Glucose (UA) Normal Urine Ketones 50 H Urine Occult Blood 50 H Urine Nitrite Negative Urine Bilirubin Negative Urine Urobilinogen Normal Ur Leukocyte Esterase 100 H Urine RBC 0 SEEN Urine WBC 10-25 SEEN Ur Squamous Epith Cells 0 SEEN Ur Transition Epith Cell 0 SEEN Ur Renal Epithelial Cell 0-5 SEEN Urine Bacteria RARE Urine Mucus 0 SEEN Radiography Diagnostic Testing: Clinical Impression(s) from Imaging Studies Brain CT 09/06/22 22:34 IMPRESSION: No CT evidence of acute intracranial hemorrhage or injury. Mild senescent changes with atherosclerosis Electronically Signed: Napoleon Jean MD at 23:54 EDT , Chest X-Ray 09/06/22 23:05 IMPRESSION: Degenerative changes, as described above. No demonstrated acute cardiopulmonary process. Electronically Signed: Dylan Haines MD at 23:55 EDT , Rhythm Strip Rhythm Strip: Sinus Rhythm Rate: 92 Ectopy: PAC(s) EKG Initial EKG: Attestation: I personally reviewed and interpreted this EKG as follows: Interpretation: Sinus Rhythm, No Acute Injury Pattern, RBBB (incomplete) and LAFB Prior EKG tracings: available for review Prior: Unchanged Management Discussion w/another healthcare provider: Hospitalist Discharge Plan Triage Chief Complaint: Fall ED Provider: Dylan Hugo Dx/Rx/DC Orders Clinical Impression: Closed head injury without concussion, Urinary tract infection, Dizziness, Unwitnessed fall, Elevated troponin Prescriptions: No Action lisinopril 5 MG tablet 5 mg PO DAILY Patient Comments: TAKE 1 TABLET EVERY DAY cholecalciferol (vitamin D3) 2,000 UNIT tablet,chewable 2,000 unit PO DAILY multivitamin Tablet 1 tab PO DAILY acetaminophen 500 mg tablet 1,000 mg PO Q8 Rx Instructions: Do not take more than 3000 mg Tylenol in a 24-hour period. meloxicam 7.5 mg tablet 7.5 mg PO BID Rx Instructions: Do not take any other nonsteroidal anti-inflammatories while using meloxicam/Mobic. aspirin 81 mg tablet,chewable 81 mg PO BIDCM Rx Instructions: Take 81 mg aspirin twice daily for 4 weeks postoperatively for DVT prophylaxis meloxicam 7.5 mg Tablet 7.5 mg PO 0800,1800 30 Days Qty: 60 0RF Primary Care Provider: Quoc Landry Referrals: Quoc Landry PA [Primary Care Provider] -
[2022-09-06 22:56] LABS: Absolute Lymphocyte Count 0.66 X10^3/uL (0.83-4.51); Absolute Neutrophil Count 10.9 X10^3/uL (2.0-7.7); Basophil# 0.03 X10^3/uL; Basophil% 0.2 % (0-1); Hematocrit 36.9 % (37-47); Lymphocyte # 0.66 X10^3/ul (0.83-4.51); Lymphocyte % 5.1 % (19-41); Mean Corp Hgb Conc 32.5 g/dL (32-36); Mean Corpuscular Hgb 32.2 pg (27.0-32.0); Mean Corpuscular Volume 98.9 fL (81-99); Mean Platelet Vol. 9.7 fl (6.2-12.0); Monocyte# 1.15 X10^3/uL; Monocyte% 8.9 % (0-10); NRBC Flagged by Analyzer 0 % (0-5); Neutrophil # 10.94 X10^3/uL (2.7-7.7); Neutrophil % 85.1 % (47-70); Platelet Count 218 K/mm3 (150-450); RBC Distribution Width SD 50.9 fl (35.1-43.9); Red Blood Count 3.73 M/mm3 (4.2-5.4); White Blood Count 12.9 K/mm3 (4.4-11.0)
--- NOTE | 2022-09-06 23:05 | RAD_ITS ---
STUDY: X-RAY CHEST REASON FOR EXAM: Female, 87 years old. Dizzy/weak TECHNIQUE: Frontal and lateral views of the chest. COMPARISON: None. FINDINGS: The lungs are clear and expanded. There is no demonstrated pleural abnormality. There is mild cardiac enlargement. Normal mediastinum and erik. Normal visualized pulmonary arteries. There is atherosclerotic calcification of the aortic arch with tortuosity. There is demineralization of the osseous structures. There is scoliosis and degenerative change of the spine. There is reverse total right shoulder replacement. There is no demonstrated abnormality of the visualized soft tissue structures of the upper abdomen. RAD/Chest PA and Lateral IMPRESSION: Degenerative changes, as described above. No demonstrated acute cardiopulmonary process. Electronically Signed: Dylan Haines MD at 23:55 EDT ,
[2022-09-06 23:19] LABS: Anion Gap 5 (5-15); BUN 23 mg/dL (7-18); BUN/Creat Ratio 25.1 RATIO (10-20); Calcium,Total 9.4 mg/dL (8.5-10.1); Chloride 106 mmol/L (98-107); Creatinine, Serum 0.92 mg/dL (0.55-1.02); EST Glomerular Filtration Rate 61 mL/min (>60); Est Glom Filt Rate - Afr Amer 74 mL/min (>60); Estimated Creatinine Clearance 30.36 ml/min; Glucose 129 mg/dL (74-106); Potassium 3.8 mmol/L (3.5-5.1); Sodium Level 137 mmol/L (136-145); Troponin-I HS (w/2H Reflex) 59 pg/mL (3.0-54.0)
[2022-09-06 23:22] LABS: Lactic Acid 1.1 mmol/L (0.4-1.9)
[2022-09-07] VITALS (10 sets, daily range): BP systolic 81–121; BP diastolic 38–79; PULSE 61–98; RESP 16–25; TEMP 36.1–37.2; O2SAT 92–99; BMI 29.7
[2022-09-07 00:14] LABS: Mucous, Urine 0 SEEN /hpf (<or=2+); Red Blood Cells-Urine 0 SEEN /hpf (0-5); Squamous Epithelial Cells - UA 0 SEEN /hpf (5-10)
[2022-09-07 00:15] LABS: Color, Urine Yellow (Yellow); Glucose, Dipstick Normal (Normal); Ketone-Dipstick 50 mg/dl (Negative); Leukocyte Esterase-Dipstick 100 /ul (Negative); Nitrite-Dipstick Negative (Negative); Occult Blood-Urine 50 /ul (Negative); Protein-Dipstick 30 mg/dl (Negative); Urine Bilirubin Dipstick Negative (Negative); Urine Clarity Clear (Clear); Urine Urobilinogen Normal (Normal)
[2022-09-07 00:20] LABS: Bacteria RARE /hpf (None Seen); Renal Epithelial Cells 0-5 SEEN /hpf (0-5); Transitional Epithelial - Ur 0 SEEN /hpf (0-5); White Blood Cells 10-25 SEEN /hpf (0-5)
[2022-09-07 00:53] LABS: Reflex Troponin-HS? (from REC) Y
[2022-09-07] MEDS: Ceftriaxone 1 GM/50 ML BAG IV (01:01)
[2022-09-07 01:15] LABS: Troponin-I HS 68 pg/mL (3.0-54.0)
--- NOTE | 2022-09-07 01:22 | EKG12_ITS ---
Test Reason : DYSRHYTHMIA Blood Pressure : / mmHG Vent. Rate : 088 BPM Atrial Rate : 088 BPM P-R Int : 172 ms QRS Dur : 114 ms QT Int : 402 ms P-R-T Axes : 059 -38 007 degrees QTc Int : 486 ms Sinus rhythm with Premature supraventricular complexes Left axis deviation Abnormal ECG Confirmed by SHEN WELLS, NORMAN ([id number]), supervising editor trailer FRANKY GAN ([id number]) on 09/08/2022 1:31:46 PM Referred By: Rakesh Maki Confirmed By:SANTI GOTTI MD
--- NOTE | 2022-09-07 02:20 | PCM.HP.STD ---
HPI - General General Date of Admission: 09/07/22 HPI Narrative MACIE WALLS, is a 87 F who presents to the hospital from assisted living after an unwitnessed fall with dizziness. She did hit her head and does not quite remember the fall however CT of the brain was negative for head bleed. Troponins were slightly elevated though she denies any chest pain or palpitations over the course the last several days. She does not have any significant medical history. She is found to have possible UTI based on UA and was given a dose of Rocephin in the ER. [facility] Medical History (Updated 09/07/22 @ : by Dr. Dylan Hugo MD) Ambulates with cane Arthritis Chronic pain Former smoker Headache, unspecified History of pain when walking History of steroid therapy History of stress test Hx of temporal arteritis Hypertension Polymyalgia rheumatica Primary osteoarthritis Urge incontinence Vitamin D deficiency Wears dentures Wears glasses Home Medications lisinopril 5 mg tablet 5 mg PO DAILY BP 04/08/17 [History Last Taken 02/23/21] cholecalciferol (vitamin D3) 50 mcg (2,000 unit) chewable tablet 2,000 unit PO DAILY supplement 04/16/17 [History Last Taken Unknown] multivitamin 1 tab PO DAILY supplement 09/09/20 [History Last Taken Unknown] acetaminophen 500 mg tablet 1,000 mg PO Q8 pain 02/25/21 [History Last Taken Unknown] aspirin 81 mg chewable tablet 81 mg PO BIDCM heart health 02/25/21 [History Last Taken Unknown] meloxicam 7.5 mg tablet 7.5 mg PO BID antiinflammatory 02/25/21 [History Last Taken Unknown] meloxicam 7.5 mg tablet 7.5 mg PO 0800,1800 30 days #60 tabs 03/08/21 [Rx Last Taken Unknown] Allergy/AdvReac Type Severity Reaction Status Date / Time alendronate sodium Allergy Unknown unknown Verified 09/06/22 22:30 [From Fosamax] amoxicillin Allergy Unknown unknown Verified 09/06/22 22:29 Family History Father DVT (deep venous thrombosis) Brother Heart disease Son Heart disease Surgical History History of appendectomy History of arthroplasty of left knee Hx of colonoscopy Hx of shoulder surgery Hx of shoulder surgery Hx of total knee arthroplasty Status post total right knee replacement Social History household members: none Smoking Status: Never smoker alcohol intake: never substance use type: does not use ROS Constitutional Constitutional: Denies chills, fatigue, fever(s) or malaise Eyes Eyes: Denies blurry vision ENT HEENT: Denies headache(s) or nasal discharge Cardiovascular Cardiovascular: Reports lightheadedness; Denies chest pain, dyspnea on exertion, palpitations, rapid heart rate or syncope Respiratory/Chest Respiratory/Chest: Denies cough, shortness of breath at rest or shortness of breath with exertion Gastrointestinal Gastrointestinal: Denies constipation, diarrhea, nausea or vomiting Genitourinary Genitourinary: Denies dysuria Neurologic Neurologic: Denies focal weakness, numbness or tremor(s) Psychiatric Psychiatric: Denies anxiety or depression Vital Signs Vital Signs Vital Signs: 09/06/22 22:20 09/06/22 22:30 09/06/22 22:30 Temperature 99.5 F H Temperature Source Oral Pulse Rate 102 H Respiratory Rate 18 Respiratory Effort Normal Blood Pressure 98/59 L 108/69 Blood Pressure Mean 72 82 Pulse Ox 97 Oxygen Delivery Method Room Air 09/07/22 00:12 09/07/22 00:42 Temperature Temperature Source Pulse Rate 98 94 Respiratory Rate 16 18 Respiratory Effort Blood Pressure 117/79 104/57 L Blood Pressure Mean 91 72 Pulse Ox 92 97 Oxygen Delivery Method Room Air Room Air Weight Weight: 155 lb 10.342 oz Body Mass Index (BMI) 30.4 Physical Exam Narrative General: Alert, Oriented x3, Cooperative, No apparent distress HEENT: Atraumatic, PERRLA, EOMI, Normocephalic Oral: Moist Mucosa Neck: Supple, No JVD Lungs: Clear to auscultation, Normal air movement, No rhonchi, No wheeze, No rales Cardiovascular: Regular rate, Regular Rhythm, Normal S1, Normal S2, No murmurs Abdomen: Soft, Non Tender, Non-Distended, No Hepato-splenomegaly Extremities: No edema, Capillary Refill Less than 3 Seconds Skin: No rashes, No breakdown Musculoskeletal: No Tenderness to Palpation of Joints or Extremities Neurological: Cranial nerves II-XII grossly intact, Motor Exam 5/5 strength throughout, Sensory exam intact to light touch and pain Psych/Mental Status: Normal Affect, Appropriate Results Lab / Micro Data 09/06/22 22:45 09/06/22 22:45 Labs: Laboratory Results - last 24 hr 09/06/22 22:45: WBC 12.9 H, RBC 3.73 L, Hgb 12.0, Hct 36.9 L, MCV 98.9, MCH 32.2 H, MCHC 32.5, RDW Std Deviation 50.9 H, RDW Coeff of Salo 14.0, Plt Count 218, MPV 9.7, Immature Gran % (Auto) 0.700, Neut % (Auto) 85.1 H, Lymph % (Auto) 5.1 L, [place] % (Auto) 8.9, Eos % (Auto) 0.0, Baso % (Auto) 0.2, Absolute Neuts (auto) 10.9 H, Absolute Lymphs (auto) 0.66 L, Nucleated RBC % 0, Sodium 137, Potassium 3.8, Chloride 106, Carbon Dioxide 26.0, Anion Gap 5, BUN 23 H, Creatinine 0.92, Estim Creat Clear Calc 30.36, Est GFR (MDRD) Af Amer 74, Est GFR (MDRD) Non-Af 61, BUN/Creatinine Ratio 25.1 H, Glucose 129 H, Lactic Acid 1.1, Calcium 9.4, Troponin I High Sens 59 H 09/07/22 00:05: Urine Color Yellow, Urine Clarity Clear, Urine pH 5.0, Ur Specific [place] 1.020, Urine Protein 30 H, Urine Glucose (UA) Normal, Urine Ketones 50 H, Urine Occult Blood 50 H, Urine Nitrite Negative, Urine Bilirubin Negative, Urine Urobilinogen Normal, Ur Leukocyte Esterase 100 H, Urine RBC 0 SEEN, Urine WBC 10-25 SEEN, Ur Squamous Epith Cells 0 SEEN, Ur Transition Epith Cell 0 SEEN, Ur Renal Epithelial Cell 0-5 SEEN, Urine Bacteria RARE, Urine Mucus 0 SEEN 09/07/22 00:45: Troponin I High Sens 68 H Rhythm Strip Rhythm Strip: Sinus Rhythm Rate: 92 Ectopy: PAC(s) Radiology Impression Brain CT 09/06/22 22:34 IMPRESSION: No CT evidence of acute intracranial hemorrhage or injury. Mild senescent changes with atherosclerosis Electronically Signed: Napoleon Jean MD at 23:54 EDT , Chest X-Ray 09/06/22 23:05 IMPRESSION: Degenerative changes, as described above. No demonstrated acute cardiopulmonary process. Electronically Signed: Dylan Haines MD at 23:55 EDT , Assessment & Plan Assessment/Plan (1) Urinary tract infection: PLAN: Plan 1. UTI with dizziness and fall ? She says that the dizziness is a little bit improved today ? She did receive a dose of Rocephin ? Urine cultures pending ? Continue with Keflex p.o. 3 times daily ? We will place her on MedSurg with telemetry but at this time will not proceed with further cardiac work-up 2. Hypertension ? Blood pressures are stable ? Can resume lisinopril once verified DVT: Ambulation Charges/Coding Visit Charges Inpatient E&M: 56787 Init Hosp L2
[2022-09-07] MEDS: Aspirin 81 MG TAB.CHEW 162 MG PO (03:07)
[2022-09-07] MEDS: Cephalexin 500 MG Capsule PO ×2 (04:28→13:59)
[2022-09-07 06:34] LABS: Absolute Lymphocyte Count 1.45 X10^3/uL (0.83-4.51); Absolute Neutrophil Count 8.8 X10^3/uL (2.0-7.7); Basophil# 0.03 X10^3/uL; Basophil% 0.3 % (0-1); Eosinophil# 0.01 X10^3/uL; Eosinophils% 0.1 % (0-5); Hematocrit 33.3 % (37-47); Hemoglobin 10.7 g/dL (12.0-15.0); Lymphocyte # 1.45 X10^3/ul (0.83-4.51); Lymphocyte % 12.8 % (19-41); Mean Corp Hgb Conc 32.1 g/dL (32-36); Mean Corpuscular Hgb 31.9 pg (27.0-32.0); Mean Corpuscular Volume 99.4 fL (81-99); Mean Platelet Vol. 10.1 fl (6.2-12.0); Monocyte# 1.05 X10^3/uL; Monocyte% 9.2 % (0-10); NRBC Flagged by Analyzer 0 % (0-5); Neutrophil # 8.78 X10^3/uL (2.7-7.7); Neutrophil % 77.2 % (47-70); Platelet Count 203 K/mm3 (150-450); RBC Distribution Width CV 14.3 % (11.6-14.6); RBC Distribution Width SD 51.8 fl (35.1-43.9); Red Blood Count 3.35 M/mm3 (4.2-5.4); White Blood Count 11.4 K/mm3 (4.4-11.0)
[2022-09-07 06:58] LABS: Anion Gap 3 (5-15); BUN 18 mg/dL (7-18); BUN/Creat Ratio 22.4 RATIO (10-20); Calcium,Total 8.7 mg/dL (8.5-10.1); Chloride 108 mmol/L (98-107); EST Glomerular Filtration Rate 71 mL/min (>60); Est Glom Filt Rate - Afr Amer 86 mL/min (>60); Estimated Creatinine Clearance 34.91 ml/min; Glucose 104 mg/dL (74-106); Potassium 3.7 mmol/L (3.5-5.1); Sodium Level 136 mmol/L (136-145)
--- NOTE | 2022-09-07 10:47 | PCM.HOSP.N ---
Hospitalist Note Patient beginning to feel better this morning, less weakness. Had orthostats this a.m. which were negative. No chest pain, shortness of breath, other etiology that would indicate underlying ACS, do not feel troponin needs trended or further acute inpatient work-up. Awaiting urine culture and PT recommendations, can likely discharge home tomorrow if she continues to feel well pending urine culture results. Continue Keflex at this time
--- NOTE | 2022-09-07 12:57 | CHAPLAIN ---
Type of Pastoral Visit _x__ Initial Visit ___ Follow-up Visit ___ On-call Visit ___ General Patient Visit ___ Spiritual Assessment ___ Family Conference ___ Bereavement ___ Rapid Response ___ Code Blue ___ Other (describe below) Pastoral Care Referral From _x__ Patient ___ Family ___ Nurse ___ Physician ___ Slp Teacher ___ Multisensor Intelligence Officer ___ Other (describe below) Sacrament/Intervention _x__ Active listening ___ Anointing ___ Bahai ___ Bereavement ___ Communion ___ Melly exploration ___ _x__ Life review _x__ Prayer ___ Reconciliation ___ Sacrament of Sick ___ Supportive presence ___ Wedding ___ Other (describe below) Pastoral Comments patient reports improvement and that she is optimistic about being discharged; pt talks about just moving this week to [facility] facility; discussed how she is facing this new season of life; pt has been a member of a local anabaptism but has not been attending recently; pt welcomes prayer and presence
[2022-09-07] MEDS: 0.9% Saline Lock 10 ML Syringe IV (13:59)
[2022-09-07] MEDS: 0.9% Normal Saline 1,000 ML 75 ML IV (15:17)
--- NOTE | 2022-09-07 15:17 | CASEMGMT ---
Addendum entered by Nova Roberts 09/07/22 15:38: Social Work SW spoke with Marquita at [facility] who states pt was living independently in the Assisted Living portion of the facility. Staff does safety checks but pt is able to care for herself. Pt can return when medically ready. Plan: Return to [facility] Original Note: Social Work SW met with pt to discuss discharge plan. Pt states she moved to the [facility] on 09/02/22 and plans to return there upon discharge. PCP: Frantz Specialists: none Preferred Pharmacy: [facility] Insurance: [employer] Prescription Benefit:?yes Living Will/HPOA:?yes both living will and HCPOA naming her son Adria Rivas on file LNOK: Son Adria Rivas Living Arrangements: Pt moved to [facility] on 09/02. Pt is independent with ambulation, bathing, dressing and medication management. [facility] provides meals. Transportation:?son DME: ?Walker, shower bench, grab bars in bathroom HHC/SNF: TCU previously, home health after knee replacements but uncertain which company Plan: Pt feels she can return to her home at [facility]. Will watch for possible need for HHC. [facility]
--- NOTE | 2022-09-07 16:06 | CASEMGMT ---
SONG KAUFFMAN in to discuss BETTENCOURT form with patient. SONG KAUFFMAN explained BETTENCOURT form, patient voiced understanding. Pt signed form and filed in chart. Pt provided with a copy of signed BETTENCOURT form. Discussed HH therapy with pt for strengthening, fall prevention, etc. Pt states she would like to think about this. She doesn't want to make a decision right now. She asks SONG KAUFFMAN to check back tomorrow. Patient had no further questions or concerns at this time.
[2022-09-07] MEDS: Aspirin 81 MG TAB.CHEW PO (16:32)
[2022-09-08] MEDS: 0.9% Normal Saline 1,000 ML 75 ML IV (05:21)
[2022-09-08 05:24] VITALS: BP 122/55; PULSE 67; RESP 16; TEMP 36.9; O2SAT 95
[2022-09-08 06:16] LABS: Absolute Lymphocyte Count 1.37 X10^3/uL (0.83-4.51); Absolute Neutrophil Count 3.9 X10^3/uL (2.0-7.7); Basophil# 0.02 X10^3/uL; Basophil% 0.3 % (0-1); Eosinophil# 0.07 X10^3/uL; Eosinophils% 1.1 % (0-5); Hematocrit 32.1 % (37-47); Hemoglobin 10.1 g/dL (12.0-15.0); Lymphocyte # 1.37 X10^3/ul (0.83-4.51); Mean Corp Hgb Conc 31.5 g/dL (32-36); Mean Corpuscular Hgb 31.6 pg (27.0-32.0); Mean Corpuscular Volume 100.3 fL (81-99); Mean Platelet Vol. 10.2 fl (6.2-12.0); Monocyte# 0.82 X10^3/uL; Monocyte% 13.2 % (0-10); NRBC Flagged by Analyzer 0 % (0-5); Neutrophil # 3.93 X10^3/uL (2.7-7.7); Neutrophil % 63.1 % (47-70); Platelet Count 192 K/mm3 (150-450); RBC Distribution Width CV 14.5 % (11.6-14.6); RBC Distribution Width SD 53.5 fl (35.1-43.9); White Blood Count 6.2 K/mm3 (4.4-11.0)
[2022-09-08 07:07] LABS: Anion Gap 5 (5-15); BUN 14 mg/dL (7-18); BUN/Creat Ratio 21.8 RATIO (10-20); Calcium,Total 8.5 mg/dL (8.5-10.1); Chloride 113 mmol/L (98-107); Creatinine, Serum 0.64 mg/dL (0.55-1.02); EST Glomerular Filtration Rate 93 mL/min (>60); Est Glom Filt Rate - Afr Amer 112 mL/min (>60); Estimated Creatinine Clearance 27.93 ml/min; Glucose 91 mg/dL (74-106); Potassium 3.5 mmol/L (3.5-5.1); Sodium Level 141 mmol/L (136-145)
[2022-09-08 07:43] VITALS: BP 122/71; PULSE 80; RESP 16; TEMP 36.8; O2SAT 95
[2022-09-08] MEDS: Aspirin 81 MG TAB.CHEW PO (07:50)
--- NOTE | 2022-09-08 12:26 | CASEMGMT ---
SONG CM into pt room, discussed therapy again and pt states she feels she will pass on this. She states that she didn't technically fall. Pt is aware that should she change her mind, she can notify her PCP. Pt verbalizes understanding.
--- NOTE | 2022-09-08 12:56 | DS.PCM_ITS ---
Providers Date of Admission: 09/07/22 Date of Discharge: 09/08/22 Primary Care Physician: CORNELIUS Alba Reason For Visit: UTI Diagnosis Discharge Diagnosis (1) Urinary tract infection: Status: Acute Code(s): N39.0 - Urinary tract infection, site not specified Plan #UTI #HTN #OA #GERD Medications at Discharge Home Medications cholecalciferol (vitamin D3) 50 mcg (2,000 unit) chewable tablet 2,000 unit PO DAILY supplement 04/16/17 acetaminophen 500 mg tablet 1,000 mg PO Q8 pain 02/25/21 aspirin 81 mg chewable tablet 81 mg PO BIDCM heart health 02/25/21 meloxicam 7.5 mg tablet 15 mg PO DAILY antiinflammatory 02/25/21 ciprofloxacin HCl 500 mg tablet 500 mg PO BID 6 days #12 tabs 09/08/22 Hospital Course Summary of Care Provided Minutes Spent on Discharge: 32 Hospital Course: 87-year-old female history of chronic pain, hypertension who presented to [facility] 09/07/2022 from assisted living after unwitnessed fall and dizziness. In ED troponins were slightly elevated but she had no chest pain or shortness of breath or palpitations over the past several days. UA was concerning for UTI and she was started on antibiotics. Given BP was still low on Keflex and urine culture not yet obtained she was started on fluids and switch to cefepime and improved significantly. Worked with physical therapy and was felt she was safe to go home. Patient feeling much better, to be discharged home on ciprofloxacin. Discharge instructions as followed: -You will be discharged with a prescription for ciprofloxacin 500 mg twice daily which you will take for 6 days -Given somewhat low blood pressure we will hold on your lisinopril 5 mg daily for now until discussing with your primary care physician. Would benefit from checking blood pressure and keeping a log if possible and taking this with you to your primary care physician's follow-up appointment -Would advise against taking meloxicam if possible to avoid any injury to your kidneys. Will defer to your prescribing physician for ultimate determination -Please call your primary care provider's office upon discharge to schedule a hospital follow up within 1 week. -For any concerning signs or symptoms please call 911 or proceed to the nearest emergency department Physical Exam Narrative General: Alert, oriented, no apparent distress HEENT: Atraumatic, normocephalic Eyes: Anicteric, normal conjunctiva, extraocular movements grossly intact Neck: Supple Respiratory: Clear to auscultation bilaterally, normal respiratory effort Cardiovascular: Regular rate and rhythm GI: Soft, nontender, nondistended Extremities: No edema Musculoskeletal: Moving all extremities Neuro: No overt focal neurological deficits Skin: No rashes appreciated Psych: Cooperative Weight / BMI Weight Weight: 68.991 kg Body Mass Index (BMI) 29.7 ABG / Lab / Microbiology Data 09/08/22 05:30 09/08/22 05:30 Laboratory: Laboratory Results - last 24 hr 09/08/22 05:30: WBC 6.2, RBC 3.20 L, Hgb 10.1 L, Hct 32.1 L, MCV 100.3 H, MCH 31.6, MCHC 31.5 L, RDW Std Deviation 53.5 H, RDW Coeff of Salo 14.5, Plt Count 192, MPV 10.2, Immature Gran % (Auto) 0.300, Neut % (Auto) 63.1, Lymph % (Auto) 22.0, Pett[place] % (Auto) 13.2 H, Eos % (Auto) 1.1, Baso % (Auto) 0.3, Absolute Neuts (auto) 3.9, Absolute Lymphs (auto) 1.37, Nucleated RBC % 0, Sodium 141, Potassium 3.5, Chloride 113 H, Carbon Dioxide 23.0, Anion Gap 5, BUN 14, Creatinine 0.64, Estim Creat Clear Calc 27.93, Est GFR (MDRD) Af Amer 112, Est GFR (MDRD) Non-Af 93, BUN/Creatinine Ratio 21.8 H, Glucose 91, Calcium 8.5 D/C Instructions Discharge Diet: No restrictions Meaningful Use Info Meaningful Use Diagnoses (Choose all that apply): None applicable Discharge Plan Admission Admit Date/Time: 09/07/22 02:11 Primary Reason for Your Visit: Generalized weakness Attending Provider: Pili Gibbons Primary Care Provider: Quoc Landry Consulting Providers: Rakesh Maki Instructions Patient Instructions: ED Fall Prevention Additional Instructions / Restrictions: DISCHARGE INSTRUCTIONS PLEASE READ *Please take this with you to your next doctors appointment* -You will be discharged with a prescription for ciprofloxacin 500 mg twice daily which you will take for 6 days -Given somewhat low blood pressure we will hold on your lisinopril 5 mg daily for now until discussing with your primary care physician. Would benefit from checking blood pressure and keeping a log if possible and taking this with you to your primary care physician's follow-up appointment -Would advise against taking meloxicam if possible to avoid any injury to your kidneys. Will defer to your prescribing physician for ultimate determination -Please call your primary care provider's office upon discharge to schedule a hospital follow up within 1 week. -For any concerning signs or symptoms please call 911 or proceed to the nearest emergency department Discharge Orders/Prescriptions Prescriptions: New ciprofloxacin HCl 500 mg tablet 500 mg PO BID 6 Days Qty: 12 0RF Continued cholecalciferol (vitamin D3) 2,000 UNIT tablet,chewable 2,000 unit PO DAILY acetaminophen 500 mg tablet 1,000 mg PO Q8 Rx Instructions: Do not take more than 3000 mg Tylenol in a 24-hour period. aspirin 81 mg tablet,chewable 81 mg PO BIDCM Rx Instructions: Take 81 mg aspirin twice daily for 4 weeks postoperatively for DVT prophylaxis Held meloxicam 7.5 mg tablet 15 mg PO DAILY Hold Instructions: Resume on 09/13/22. Would recommend holding until you discussed with your primary care physician Rx Instructions: Do not take any other nonsteroidal anti-inflammatories while using meloxicam/Mobic. Discontinued lisinopril 5 MG tablet 5 mg PO DAILY Patient Comments: TAKE 1 TABLET EVERY DAY Referrals / Follow Up: Quoc Landry PA [Primary Care Provider] - Within 1 Week Disposition Disposition (needs filled in before D/C Order can be placed): Home, Self Care Charges/Coding Visit Charges Inpatient E&M: 95076 Disch Hosp >30min
--- NOTE | 2022-09-08 13:04 | CASEMGMT ---
Social Work Per physician pt is ready for discharge. 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 SW updated nurse. Nurse spoke with pt's son and updated on discharge and transportation. discharge order faxed to [facility]
== END 2022-09-08 14:27 | disposition home or self-care (01) ==
LOC: ED 09-07 00:55 → MS3 09-07 02:54
PROVIDERS: Admitting Provider Family Medicine; Emergency Provider Emergency Medicine; PCP Physician Assistant; Referring Provider Family Medicine; Visit Provider Internal Medicine
DX: N39.0 Urinary tract infection, site not specified (principal); M35.3 Polymyalgia rheumatica; S09.90XA Unspecified injury of head, initial encounter; W19.XXXA Unspecified fall, initial encounter; R41.0 Disorientation, unspecified; I10 Essential (primary) hypertension; Z79.899 Other long term (current) drug therapy; Z79.82 Long term (current) use of aspirin; E55.9 Vitamin D deficiency, unspecified; M19.90 Unspecified osteoarthritis, unspecified site; K21.9 Gastro-esophageal reflux disease without esophagitis
CPT/HCPCS: 36415; 70450; 71046; 80048; 81001; 83605; 84484; 85025; 87040; 87086; 93005; 96361; 96365; 96366; 97110; 97162; 97166; 97535; 99221; 99285; J7030; J7040; J7050; A4216; G0378

== ENCOUNTER 2023-03-04 09:30 | Emergency (ER) | payer MEDICARE, SELFPAY ==
[2023-03-04 09:31] VITALS: BP 187/94; PULSE 97; RESP 18; TEMP 36.8; O2SAT 94; BMI 32.5
--- NOTE | 2023-03-04 10:06 | RAD_ITS ---
HISTORY: chest pain. TECHNIQUE: XR Chest 1 View. COMPARISON: 09/06/2022. FINDINGS: CARDIOMEDIASTINAL BORDERS: Unchanged mild cardiomegaly and tortuosity of the aorta. LUNGS: Chronic coarse interstitial markings and scarring in the lung bases. PLEURA: No pleural effusion or pneumothorax. OSSEOUS STRUCTURES: Osteopenia, degenerative change, and scoliosis. Right shoulder arthroplasty. RAD/Chest 1 View (Portable) IMPRESSION: No acute cardiopulmonary process identified. Electronically Signed: Hilary Medrano MD at 10:57 EST ,
--- NOTE | 2023-03-04 10:08 | ED.VIS.DYS ---
HPI History of Present Illness Chief Complaint: Shortness of Breath Informant: patient and family Onset/Context/Timing Onset: Days Context: gradual Timing: Intermittent Quality: Positive for Dyspnea on exertion Current Severity: Mild Worsened by: Exertion Relieved by: Rest Associated Symptoms Negative for cough, rhinorrhea, post nasal drip, ear pain, fever or sore throat Chest Pain: Positive for None Narrative Narrative: 88-year-old female who is a resident at [facility]. No significant past medical history. Says she is kind of felt fatigued and short of breath the last 3 days. Was feeling a little bit better and then worse again today. Denies cough. Denies fever or chills. Has had no chest pain. No abdominal pain. Denies Vomiting or diarrhea. No constipation. No dysuria. At times mildly nauseated. No leg pain or swelling. PE Risk Factors: Negative for Cancer, OCP + Smoking + > 35, Prior DVT or PE, Recent immobilization, Recent surgery or Recent travel Prior similar symptoms: No Recent Illness/Hospitalization: No PFSH PFSH Medical History Ambulates with cane Anxiety Arthritis Chronic pain Depression Former smoker Headache, unspecified History of pain when walking History of steroid therapy History of stress test Hx of temporal arteritis Hypertension Osteoporosis Polymyalgia rheumatica Primary osteoarthritis Urge incontinence Vitamin D deficiency Wears dentures Wears glasses Home Medications aspirin 81 mg chewable tablet 81 mg PO BIDCM heart health 02/25/21 [History Last Taken Unknown] meloxicam 7.5 mg tablet 15 mg PO DAILY antiinflammatory 02/25/21 [History Last Taken Unknown] denosumab 60 mg/mL subcutaneous syringe (Prolia) 60 mg subcut [id number] #1 mL 11/21/22 [Rx Last Taken Unknown] Allergy/AdvReac Type Severity Reaction Status Date / Time alendronate sodium Allergy Unknown unknown Verified 03/04/23 09:34 [From Fosamax] amoxicillin Allergy Unknown unknown Verified 03/04/23 09:34 Family History Father DVT (deep venous thrombosis) Brother Heart disease Son Heart disease Surgical History History of appendectomy History of appendectomy History of arthroplasty of left knee Hx of colonoscopy Hx of shoulder surgery Hx of shoulder surgery Hx of total knee arthroplasty Status post total right knee replacement Social History household members: none Smoking Status: Never smoker alcohol intake: never substance use type: does not use ROS ROS ED ROS Narrative Short of breath. Fatigue. Review of Systems ROS Unobtainable: Denies due to encephalopathy Constitutional Constitutional ED: Denies chills or fever(s) Eyes Eyes: Denies blurry vision ENT ENT ED: Denies ear pain Cardiovascular Cardiovascular: Denies chest pain, palpitations or racing heartbeat Respiratory/Chest Respiratory/Chest: Reports dyspnea and dyspnea on exertion; Denies cough Gastrointestinal Gastrointestinal: Reports nausea; Denies abdominal pain, constipation, diarrhea, melena or vomiting Genitourinary Genitourinary ED: Denies dysuria or hematuria Musculoskeletal Musculoskeletal: Denies arthralgias Integumentary Denies abscess Neurologic Neurologic: Denies headache(s) Psychiatric Psychiatric: Denies anxiety or depression Endocrine Endocrinology: Denies cold intolerance Hematologic/Lymphatic Hematologic/Lymphatic: Denies easy bleeding, easy bruising or lymphadenopathy Allergic/Immunologic Allergic/Immunologic ED: Denies mouth swelling, tongue swelling or urticaria EXAM Physical Exam Narrative Exam Narrative: Well-appearing 88-year-old female. Vital signs are stable afebrile. Sitting upright in bed her pulse ox is 94% on room air no hypoxia. She is in no distress. Family at bedside. H EENT exam unremarkable. No facial droop. Moist weeks membranes. Neck nontender no JVD. No lymphadenopathy. Lungs clear to auscultation bilaterally. Heart regular rhythm no murmur. Rate in 90s. Chest wall and ribs nontender. Abdomen soft nontender. Nondistended normal bowel sounds no peritoneal signs. Moving all 4 extremities. Calves are nontender without edema or cords. Neurologically she is awake and alert with no focal motor deficits. Back is nontender. Skin unremarkable. Normal bellperson strength. Normal dorsi plantarflexion. Const Vital Signs: 03/04/23 09:31 03/04/23 10:09 03/04/23 10:10 Temperature 98.2 F Temperature Source Temporal Pulse Rate 97 82 85 Respiratory Rate 18 16 18 Respiratory Effort Respiratory Depth Respiratory Pattern Blood Pressure 187/94 H 123/93 H 123/93 H Blood Pressure Mean 125 103 103 Pulse Ox 94 97 97 Oxygen Delivery Method Room Air Room Air Room Air 03/04/23 10:13 03/04/23 10:24 Temperature Temperature Source Pulse Rate Respiratory Rate Respiratory Effort Normal Non-Labored Respiratory Depth Normal Respiratory Pattern Normal Blood Pressure Blood Pressure Mean Pulse Ox Oxygen Delivery Method Room Air Room Air Positive well nourished and well developed; Negative for obese, cachectic, contractures or unkempt General Appearance ED: well developed and NAD; Negative for unkempt, cachectic, contractures or pallor Nutritional Appearance: Negative for cachectic or obese HEENT Reports moist mucous membranes; Denies dry mucous membranes atraumatic; Negative for trauma or tenderness Mouth ED: No dry mucous membranes Mouth: No dry mucous membranes Eyes PERRL and EOMs intact bilaterally General Eye ED: Negative for pale conjunctiva or scleral icterus Neck no lymphadenopathy, supple, no meningeal signs and no JVD General: Negative for tenderness Lymph Lymphatic: Negative for other Resp normal respiratory effort and clear to auscultation bilaterally Effort and Inspection: Negative for pain with movement Auscultation: Negative for rales, rhonchi, wheezes or diminished lung sounds Cardio regular rate, regular rhythm, S1 normal heart sound, S2 normal heart sound and no murmurs Rate: Negative for bradycardia or tachycardic Rhythm: Negative for abnormal rhythm GI non-tender, non-distended and no masses Inspection: Negative for other Auscultation: normoactive bowel sounds Palpation: soft; Negative for tender, guarding or rebound tenderness present Back/Spine no CVA tenderness and normal to inspection General Back: Negative for CVA tenderness or tenderness Extremity normal to inspection General Extremety ED: Negative for edema or tenderness General Extremity: Negative for edema Neuro oriented x3 and CN's II-XII intact bilaterally Sensorium / Orientation: alert, oriented to person, oriented to place and oriented to time; Negative for orientation impaired, confused, lethargic or stuporous Speech: speech normal Motor Exam: strength 5/5 throughout Psych mental status grossly normal Appearance: Negative for unkempt Attitude: No agitated and No other Mood & Affect: Negative for depressed, anxious or tearful Thought Process: normal thought process Skin no wounds and skin turgor normal General Skin Exam: Negative for jaundice or pallor Lesions: no lesions Rashes: no rashes MDM MDM MDM Narrative Medical decision making narrative: Patient with fatigue and shortness of breath. Benign exam. Differential would include anemia, viral URI, pneumonia, effusions, dysrhythmia versus other etiologies. No history of cardiac disease or prior PE or DVT. No recent hospitalization. No leg pain or swelling. Patient will undergo a cardiac and infectious workup. Repeat exam patient doing well at 10:50 AM. Vital signs no significant change other blood pressure is improved. Pulse ox is 97% on room air no hypoxia. She is resting comfortably. She is drinking glass of water and ate some cookies. Patient doing well at we went over all of her test noon. Results. Basically her baseline. She has had elevated heart enzymes before. She and family are comfortable with her being discharged back to the extended care facility with follow-up with her primary care provider this week. History & Record Review Discussion w/independent historian: Patient Additional record(s) reviewed:: Prior inpatient record, Prior outpatient record, Prior ED visit and Prior labs Lab Data Attestation: I reviewed the patient's lab results. Lab results narrative: UA is negative. There is no nitrates. No bacteria. There is only 5-10 white cells and no red blood cells. CBC is unremarkable. White count of 5. H&H 13 and 42. Platelets 272. Chemistries show a gap of 4. Normal BUN and creatinine are 15 and 0.8. Troponin is elevated at 60.Previously elevated cardiac enzyme. Labs: Laboratory Results - last 24 hr 03/04/23 10:25 WBC 5.1 RBC 4.19 L Hgb 13.2 Hct 42.1 MCV 100.5 H MCH 31.5 MCHC 31.4 L RDW Std Deviation 62.0 H RDW Coeff of Slao 16.7 H Plt Count 272 MPV 9.7 Immature Gran % (Auto) 0.200 Neut % (Auto) 59.9 Lymph % (Auto) 27.8 Orange % (Auto) 10.3 H Eos % (Auto) 1.2 Baso % (Auto) 0.6 Absolute Neuts (auto) 3.1 Absolute Lymphs (auto) 1.43 Nucleated RBC % 0 Sodium 140 Potassium 4.2 Chloride 110 H Carbon Dioxide 26.0 Anion Gap 4 L BUN 15 Creatinine 0.80 Estim Creat Clear Calc 41.06 Est GFR (MDRD) Af Amer 87 Est GFR (MDRD) Non-Af 72 BUN/Creatinine Ratio 18.7 Glucose 105 Calcium 10.2 H Troponin I High Sens 60 H Urine Color Yellow Urine Clarity Clear Urine pH 6.0 Ur Specific [place] 1.020 Urine Protein 30 H Urine Glucose (UA) Normal Urine Ketones Negative Urine Occult Blood 25 H Urine Nitrite Negative Urine Bilirubin Negative Urine Urobilinogen Normal Ur Leukocyte Esterase 100 H Urine RBC 0 SEEN Urine WBC 5-10 SEEN Ur Squamous Epith Cells 0-5 SEEN Urine Bacteria 0 SEEN Urine Mucus 0 SEEN Radiography Chest X-Ray - ED: 1 View, Read by ED Physician, Heart, Lungs, Mediastinum, Bony Structures, No Acute Disease and Chronic Changes Diagnostic Testing: Clinical Impression(s) from Imaging Studies Chest X-Ray 03/04/23 10:06 IMPRESSION: No acute cardiopulmonary process identified. Electronically Signed: Hilary Medrano MD at 10:57 EST Reading Location ID and State: [facility] / [place] Tel , Service support , Chest x-ray, portable, single view shows normal cardiac silhouette. Normal lung bowens. No infiltrate. No effusions. Rhythm Strip Rhythm Strip: Sinus Rhythm Rate: 86 Ectopy: None EKG Initial EKG: Attestation: I personally reviewed and interpreted this EKG as follows: Interpretation: Sinus Rhythm and No Acute Injury Pattern Comments: Normal sinus rhythm rate 86 no acute signs of [place] or ischemia. Incomplete right bundle branch block. LVH. Discharge Plan Triage Chief Complaint: Shortness of Breath ED Provider: Raghavendra Tarango Dx/Rx/DC Orders Clinical Impression: Acute dyspnea, Viral syndrome Instructions: ED Viral Syndrome (Adult) Prescriptions: No Action meloxicam 7.5 mg tablet 15 mg PO DAILY Hold Instructions: Resume on 09/13/22. Would recommend holding until you discussed with your primary care physician Rx Instructions: Do not take any other nonsteroidal anti-inflammatories while using meloxicam/Mobic. aspirin 81 mg tablet,chewable 81 mg PO BIDCM Rx Instructions: Take 81 mg aspirin twice daily for 4 weeks postoperatively for DVT prophylaxis Prolia 60 mg/mL syringe 60 mg subcut [id number] Qty: 1 1RF Primary Care Provider: Quoc Landry Referrals: Landry,M Kenyon PA, PA [Primary Care Provider] - As soon as possible Activity Restrictions/Additional Instructions: Plenty of fluids and rest. Follow-up with your. primary care provider this week Return emergency department if feeling worse. Your labs, chest x-ray and urinalysis today really did not show anything specific. Disposition Disposition: Home, Self Care
[2023-03-04 10:09] VITALS: BP 123/93; PULSE 82; RESP 16; O2SAT 97
[2023-03-04 10:10] VITALS: BP 123/93; PULSE 85; RESP 18; O2SAT 97
[2023-03-04 10:13] VITALS: O2SAT 97
--- OUTSIDE RECORDS SUMMARY | 2023-03-04 10:23 | XMS RPT_ITS | CCD ---
Author Name Unknown Address [address] [place] [address] Organization [facility] Care Team Providers Care Steward/Stewardess Name Role Phone CEBUL, EMELYN III Unavailable Unavailable CEBUL, EMELYN III Unavailable Unavailable CEBUL, EMELYN III Unavailable Unavailable CEBUL, EMELYN III Unavailable Unavailable CEBUL, EMELYN III Unavailable Unavailable PROVIDER, UNKNOWN Unavailable Unavailable [facility] Unavailable Unavailable CEBUL, EMELYN Unavailable Unavailable Quoc Landry PA-C Primary Care Provider [phone] Quoc Landry PA-C Primary Care Provider [phone] Quoc Landry PA-C Primary Care Provider [phone] Quoc LANDRY Primary Care Unavailable Quoc LANDRY Referring Unavailable Quoc LANDRY Attending Unavailable Quoc LANDRY Primary Care Unavailable Quoc LANDRY Attending Unavailable Quoc LANDRY Primary Care Unavailable Quoc LANDRY Primary Care Unavailable Quoc LANDRY Referring Unavailable Quoc LANDRY Attending Unavailable Quoc LANDRY Primary Care Unavailable Allergies Allergy Classification Reported Allergen(s) Allergy Type Date of Onset Reaction(s) Facility (11 sources) amoxicillin; Translations: [AMOXICILLIN] Drug Allergy [address] [facility] Repository (9 sources) Alendronate; Translations: [ALENDRONATE] Drug Allergy 2 Other: See Comments [facility] Work Phone: Medications Current Medications Medication Drug Class(es) Dates Sig (Normalized) Sig (Original) predniSONE 20 mg oral tablet (1 source) Start: 04-22-2021 End: 05-22-2021 take 1 tablet by mouth once daily predniSONE (DELTASONE) 20 mg tablet Take 1 tablet by mouth once daily. 30 tablet 0 04/22/2021 05/22/2021 Active Completed/Discontinued Medications Medication Drug Class(es) Dates Sig (Normalized) Sig (Original) acetaminophen 500 mg oral tablet (9 sources) Start: 09-22-2020 take 1.5 tablets by mouth three times daily acetaminophen (TYLENOL) 500 mg tablet Take 1.5 tablets by mouth three times daily. 0 09/22/2020 Active Problems Active Problems Problem Classification Problem Date Documented Date Episodic/Chronic Administrative/socia l admission (11 sources) Patient encounter status; Translations: [Persons encountering health services in other specified circumstances] Onset: 03-05-2021 03-05-2021 Episodic Essential hypertension (11 sources) Benign essential hypertension; Translations: [Essential (primary) hypertension] Onset: 11-07-2011 11-07-2011 Chronic Genitourinary symptoms and ill-defined conditions (10 sources) Urge incontinence of urine; Translations: [Urge incontinence] Onset: 04-04-2005 04-04-2005 Chronic Headache; including migraine (1 source) Headache; including migraine; Translations: [Chronic nonintractable headache, unspecified headache type] Onset: 11-25-2021 Immunizations and screening for infectious disease (2 sources) Needs influenza immunization; Translations: [Encounter for immunization] Episodic Nutritional deficiencies (10 sources) Vitamin D deficiency; Translations: [Vitamin D deficiency, unspecified] Onset: 07-15-2010 07-15-2010 Chronic Osteoarthritis (20 sources) Arthritis of shoulder region joint; Translations: [Primary osteoarthritis, unspecified shoulder] Onset: 09-21-2014 Chronic Osteoporosis (11 sources) Senile osteoporosis; Translations: [Age-related osteoporosis without current pathological fracture] Onset: 06-28-2017 08-30-2020 Chronic Other aftercare (1 source) Post-discharge follow-up; Translations: [Encounter for follow-up examination after completed treatment for conditions other than malignant neoplasm] 09-25-2022 Episodic Other connective tissue disease (11 sources) Polymyalgia rheumatica; Translations: [Polymyalgia rheumatica] Onset: 02-20-2018 Chronic Other connective tissue disease (1 source) History of total knee arthroplasty; Translations: [Presence of right artificial knee joint] Chronic Other connective tissue disease (1 source) Polymyalgia rheumatica; Translations: [Polymyalgia rheumatica (HCC)] Onset: 02-20-2018 Chronic Other nervous system disorders (1 source) Other chronic pain; Translations: [Chronic nonintractable headache, unspecified headache type] Onset: 11-25-2021 Chronic Other nutritional; endocrine; and metabolic disorders (9 sources) 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; Translations: [Hypercalcemia] Onset: 04-20-2018 08-30-2020 Chronic Other nutritional; endocrine; and metabolic disorders (1 source) Hypercalcemia; Translations: [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] Onset: 08-30-2020 Chronic Other nutritional; endocrine; and metabolic disorders (1 source) Hypervitaminosis D; Translations: [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] Onset: 08-30-2020 Chronic Systemic lupus erythematosus and connective tissue disorders (11 sources) Temporal arteritis; Translations: [Other giant cell arteritis] Onset: 09-05-2002 02-20-2018 Chronic Past or Other Problems Problem Classification Problem Date Documented Da te Episodic/Chronic Complication of device; implant or graft (9 sources) Loosening of total knee replacement; Translations: [Mechanical loosening of internal right knee prosthetic joint, initial encounter] Onset: 03-16-2021 03-16-2021 Episodic E Codes: Fall (2 sources) Fall; Translations: [Unspecified fall, sequela] Onset: 09-25-2022 09-25-2022 Episodic Headache; including migraine (9 sources) Headache; Translations: [Headache] Onset: 08-04-2015 08-04-2015 Episodic Other aftercare (9 sources) [facility] systemic steroid user; 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] Onset: 02-10-2020 02-10-2020 Episodic Other aftercare (1 source) [facility] (current) use of systemic steroids; 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] Onset: 02-10-2020 Episodic Other aftercare (1 source) Encounter for follow-up examination after completed treatment for conditions other than malignant neoplasm; Translations: [Hospital discharge follow-up] Onset: 09-25-2022 Episodic Other screening for suspected conditions (not mental disorders or infectious disease) (2 sources) Decreased vitamin D; Translations: [Other specified abnormal findings of blood chemistry] Onset: 01-16-2022 Episodic Urinary tract infections (2 sources) Acute cystitis; Translations: [Acute cystitis without hematuria] Onset: 09-25-2022 09-25-2022 Episodic Results Test Name Value Interpretation Reference Range Facil ity Vital Signs Date Time Vital Sign Value Performing Clinician Amanda flores 09-25-2022 11:08-0400 Body weight 67.13 kg NA Landry PA-C Work Phone: [facility] 09-25-2022 11:08-0400 Diastolic blood pressure 68 mm[Hg] NA Landry PA-C Work Phone: [facility] 09-25-2022 11:08-0400 Heart rate 75 /min NA Landry PA-C Work Phone: [facility] 09-25-2022 11:08-0400 Respiratory rate 18 /min NA Landry PA-C Work Phone: [facility] 09-25-2022 11:08-0400 SaO2% (BldA) [Mass fraction] 96 % NA Landry PA-C Work Phone: [facility] 09-25-2022 11:08-0400 Systolic blood pressure 118 mm[Hg] NA Landry PA-C Work Phone: [facility] 11-25-2021 10:06-0400 Body weight 69.4 kg NA Landry PA-C Work Phone: [facility] 11-25-2021 10:06-0400 Diastolic blood pressure 68 mm[Hg] NA Landry PA-C Work Phone: [facility] 11-25-2021 10:06-0400 Heart rate 68 /min NA Landry PA-C Work Phone: [facility] 11-25-2021 10:06-0400 Respiratory rate 16 /min NA Landry PA-C Work Phone: [facility] 11-25-2021 10:06-0400 SaO2% (BldA) [Mass fraction] 96 % NA Landry PA-C Work Phone: [facility] 11-25-2021 10:06-0400 Systolic blood pressure 124 mm[Hg] NA Landry PA-C Work Phone: [facility] 05-05-2021 09:43-0400 Body weight 68.04 kg NA Landry PA-C Work Phone: [facility] 05-05-2021 09:43-0400 Diastolic blood pressure 66 mm[Hg] NA Landry PA-C Work Phone: [facility] 05-05-2021 09:43-0400 Heart rate 68 /min NA Landry PA-C Work Phone: [facility] 05-05-2021 09:43-0400 Respiratory rate 16 /min NA Landry PA-C Work Phone: [facility] 05-05-2021 09:43-0400 SaO2% (BldA) [Mass fraction] 97 % NA Landry PA-C Work Phone: [facility] 05-05-2021 09:43-0400 Systolic blood pressure 120 mm[Hg] NA Landry PA-C Work Phone: [facility] Encounters Encounter Date Encounter Type Care Provider Facility Start: 01-08-2023 End: 01-08-2023 ambulatory Quoc LANDRY Facility:[facility] Start: 09-25-2022 End: 09-26-2022 ambulatory Quoc LANDRY Facility:[facility] Start: 09-25-2022 End: 09-25-2022 Patient encounter procedure Quoc SHIELDS-C Work Phone: [facility] Procedures Date Procedure Procedure Detail Performing Clinician Start: 09-25-2022 Urnls dip stick/tabl et rgnt auto w/o microscopy Quoc SHIELDS-C Work Phone: Start: 01-16-2022 Dxa bone density shanell dy 1/> sites axial skel Quoc SHIELDS-C Work Phone: Start: 11-25-2021 INFLUENZA SEASONAL QUADRIVALENT HIGH DOSE AGE 65+ M Kenyon SHIELDS-C Work Phone: Start: 11-25-2021 PFIZER-BIONTECH COVI D-19 BIVALENT BOOSTER VACCINE, AGE 12+ YR M Kenyon Frantz GUAN Work Phone: Plan of Treatment Date Care Activity Detail Author Start: 06-06-2025 DIABETES SCREEN DIABETES SCREEN [facility] Start: 06-06-2025 Diabetes Screening Diabetes Screenin g [facility] Start: 11-25-2024 DIABETES SCREEN DIABETES SCREEN [facility] Start: 04-26-2024 DIABETES SCREEN DIABETES SCREEN [facility] Start: 11-25-2022 SHINGRIX VACCINE (1 of 2) SHINGRIX V ACCINE (1 of 2) [facility] Immunizations Immunization Date Immunization Notes Care Provider [facility] 11-25-2021 COVID-19 booster vaccine, age 12+ yr, bivalent (PFIZER-BIONTECH) PAZ Landry PA-C Work Phone: [facility] 11-25-2021 influenza, high-dose , quadrivalent vaccine (FLUZONE HIGH DOSE QUADRIVALENT) PAZ Landry PA-C Work Phone: [facility] 11-25-2021 influenza virus vacc ine, unspecified formulation Bone Wstr Work Phone: [facility] 07-12-2021 COVID-19 original vaccine, age 12+ yr, monovalent (PFIZER-BIONTECH - WIGGINS TOP) Natalee Estrada RN [facility] 12-14-2020 COVID-19 original vaccine, age 12+ yr, monovalent (PFIZER-BIONTECH - PURPLE TOP) Natalee Estrada RN [facility] 12-14-2020 influenza, high-dose , quadrivalent vaccine (FLUZONE HIGH DOSE QUADRIVALENT) PAZ aLndry PA-C Work Phone: [facility] 12-14-2020 influenza, seasonal, injectable, preservative free PAZ Landry PA-C Work Phone: [facility] 09-13-2020 pneumococcal polysaccharide vaccine, 23 valent PAZ Landry PA-C Work Phone: [facility] 03-20-2020 COVID-19 vaccine, ag e 12+ yr (PFIZER-BIONTECH - PURPLE TOP) PAZ Landry PA-C Work Phone: [facility] 02-28-2020 COVID-19 vaccine, ag e 12+ yr ([employer]-D[employer]bot[employer] - PURPLE TOP) NA Landry PA-C Work Phone: [facility] 12-30-2019 influenza, high-dose , quadrivalent vaccine (FLUZONE HIGH DOSE QUADRIVALENT) NA Landry PA-C Work Phone: [facility] 12-30-2019 influenza, seasonal, injectable, preservative free NA Landry PA-C Work Phone: [facility] 12-07-2019 influenza, high dose seasonal, preservative-free NA Landry PA-C Work Phone: [facility] 09-21-2014 pneumococcal conjuga te vaccine, 13 valent NA Landry PA-C Work Phone: [facility] 12-27-2012 influenza virus vacc ine, unspecified formulation NA Landry PA-C Work Phone: [facility] 11-07-2011 influenza virus vacc ine, unspecified formulation NA Landry PA-C Work Phone: [facility] 03-18-2009 tetanus and diphther ia toxoids, adsorbed, preservative free, for adult use (2 Lf of tetanus toxoid and 2 Lf of diphtheria toxoid) NA Landry PA-C Work Phone: [facility] 11-20-2008 influenza virus vacc ine, unspecified formulation NA Landry PA-C Work Phone: [facility] 12-03-2007 influenza virus vacc ine, unspecified formulation NA Landry PA-C Work Phone: [facility] Work Phone: 11-28-2004 influenza virus vacc ine, whole virus NA Landry PA-C Work Phone: [facility] 02-03-2002 pneumococcal polysaccharide vaccine, 23 valent NA Landry PA-C Work Phone: [facility] Payers Date Payer Category Payer Medicare [id number] 2020 Medicare HUMANA MEDICARE HU[employer]NA MEDICARE PPO [id number] 2020-Present [phone] [address] [address] [place] [address] PPO [id number] 2020 Medicare HUMANA MEDICARE HUMANA MEDICARE PPO [id number] 2020-Present [phone] [address] [address] [place] [address] PPO [id number] Social History Date Type Detail Facility Start: 09-05-2017 End: 06-06-2022 Tobacco smoking status NHIS Ex-smoker [facility] Start: 05-05-2021 End: 09-25-2022 Alcohol intake Current drinker of alcohol (finding) [facility] Start: 08-28-2020 End: 06-01-2022 History SDOH Alcohol Frequency 1 [facility] Start: 08-28-2020 End: 06-01-2022 History SDOH Social Connections Phone 5 [facility] Start: 08-28-2020 History SDOH Social Connections Get Together 3 [facility] Start: 08-28-2020 End: 06-01-2022 History SDOH Social Connections Membership 2 [facility] Start: 08-28-2020 End: 06-01-2022 History SDOH Social Connections Living 4 [facility] Start: 08-28-2020 End: 06-01-2022 History SDOH Physical Activity DPW 0 [facility] Start: 08-28-2020 Education 14 [facility] Start: 1935 Sex Assigned At Female C [facility] History of tobacco use Current smoker [facility] Start: 09-05-2017 End: 06-06-2022 Tobacco use and exposure Smokeless tobacco non-user [facility] Start: 11-15-2021 End: 11-25-2021 Exposure to SARS-CoV-2 (event) Not sure [facility] Start: 06-06-2022 Tobacco Comment smoked for champ ef period as teen [facility] Start: 01-12-2020 End: 06-01-2022 [facility] Start: 01-12-2020 End: 06-01-2022 Social connection and isolation panel [facility] Do you belong to any clubs or organizations such as samaritan groups, unions, fraternal or athletic groups, or school groups? No [facility] Are you now , , , , never or living with a partner? [facility] How often to you hav e a drink containing alcohol? Never [facility] How many standard dr inks containing alcohol do you have on a typical day? Patient does not drink [facility] How hard is it for y ou to pay for the very basics like food, housing, medical care, and heating Not very hard [facility] Do you feel stress - tense, restless, nervous, or anxious, or unable to sleep at night because your mind is troubled all the time - these days [OSQ] Only a little [facility] (I/We) worried wheth er (my/our) food would run out before (I/we) got money to buy more. Never true [facility] Start: 08-28-2020 Gender identity Identifies as female gender (finding) [facility] Clinical Notes 06-24-2020 to 01-08-2023 Quoc Landry PA-C - 09/25/2022 11:20 AM EDTTelephone Encounter - Alyssa Gandhi - 09/13/2022 8:59 AM EDTTelephone Encounter - Quoc Landry PA-C - 09/12/2022 5:40 PM EDTPatient Instructions Note Date & Type Note Facility 01-08-2023 Note HNO ID: [id number] Author: Quoc Landry PA-C Service: ? Author Type: Physician Lna Type: Progress Notes Filed: 01/08/2023 1:05 PM Note Text: 88 year old female with c/o here for medication follow up and update Essential hypertension, benign (primary encounter diagnosis) Current meds: none Patient is compliant with meds No Monitors bp at home: No. If yes, readings: Denies side effects: No. Chest pain: No. Dyspnea: No. Edema: No. Palpitations: No. Syncope: No. Headache: No. Dizziness: No. Last 3 Encounter BP Readings: Date: BP: 01/08/2023 120/64 09/25/2022 118/68 06/06/2022 120/64 Last 2 Encounter Wt Readings: Date: Wt: 09/25/2022 67.1 kg (148 lb) 06/06/2022 68.9 kg (152 lb) Temporal arteritis (hcc) Polymyalgia rheumatica (hcc) [facility] systemic steroid user Current medications: Off steroids Tylenol arthritis 2 tabs every 8h Hard in the morning but once upp and around feels aaron.r Does exercises with stretch bands. 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 71 Normalized Calcium 1.08 - 1.30 mmol/L 1.30 Ionized Calcium 1.08 - 1.30 mmol/L 1.33 (H) Vitamin D 25 Hydroxy 31.0 - 80.0 ng/mL 60.2 70.5 PTH, Intact 15 - 65 pg/mL 43 Vit D1,25 Dihydroxy 19.9 - 79.3 pg/mL 46.1 Arthritis of shoulder Arthritis of right knee Most pain in hips and shoudlers. Walks quite a distance to lunch room. In PT Doing pretty well. HISTORIES FAMILY HISTORY Problem Relation Age of Onset Alzheimer's Disease Mother Cancer Brother LARYNGEAL Thyroid Sister Glaucoma Sister PAST MEDICAL HISTORY Diagnosis Date Age-related osteoporosis with current pathological fracture 06/28/2017 start fosamax 06/2017 Diverticulosis of colon (without mention of hemorrhage) Essential hypertension, benign 11/07/2011 External hemorrhoids without mention of complication Internal hemorrhoids without mention of complication Other and unspecified hyperlipidemia Polymyalgia rheumatica (HCC) 02/20/2018 Temporal arteritis (HCC) 09/05/2002 diagnosed 09/05/2002 with sed rate 103 Vitamin D deficiency 07/15/2010 PAST SURGICAL HISTORY Procedure Laterality Date ANESTHESIA TOTAL HIP ARTHROPLASTY Right 09/09/2020 Robotic assisted EB right Dr. Pabon APPENDECTOMY ARTHROPLASTY TOTAL SHOULDER Right 04/17/2017 Right reverse TSA COLONOSCOPY FLX DX W/COLLJ SPEC WHEN PFRMD 04/24/2007 Social History Tobacco Use Smoking status: Former Smokeless tobacco: Never Tobacco comments: smoked for brief period as teen Substance Use Topics Alcohol use: Yes Comment: occas. wine Drug use: No ACTIVE PROBLEM LIST Urge Incontinence Vitamin D Deficiency Essential Hypertension, Benign Arthritis of Right Knee Chronic Headaches Age-Related Osteoporosis Without Current Pathological Fracture Arthritis of Shoulder Temporal Arteritis (Hcc) Polymyalgia rheumatica (HCC) Hypercalcemia Due to Hypervitaminosis D [facility] Systemic Steroid User Encounter for Support and Coordination of Transition of Care Loose Right Total Knee Arthroplasty (Hcc) Current Outpatient Medications Medication Sig Dispense Refill mirabegron (MYRBETRIQ) 25 mg Tb24 Take 1 tablet by mouth once daily. 30 tablet 0 lisinopril (ZESTRIL, PRINIVIL) 5 mg tablet Take 1 tablet by mouth once daily. (Patient not taking: Reported on 09/25/2022) 90 tablet 3 acetaminophen (TYLENOL) 500 mg tablet Take 1.5 tablets by mouth three times daily. aspirin, enteric coated (ASPIRIN, ENTERIC COATED) 81 mg EC tablet Take 81 mg by mouth once daily. Cholecalciferol, Vitamin D3, 2,000 unit cap Take 1 tablet by mouth once daily. 30 capsule 12 DAILY MULTIVITAMIN TAB Take one(1) tablet daily. 0 No current facility-administered medications for this visit. Shingrix Vaccine(1 of 2) Never done RSV Vaccine(1 - 1-dose 60+ series) Never done DTaP,Tdap,Td Vaccine(1 - Tdap) due on 03/19/2009 Influenza Vaccine(1) due on 10/06/2022 Covid-19 Vaccine(2022-24 season) due on 10/06/2022 EXAM: BP 120/64 Pulse 79 Temp 36.7 ?C (98 ?F) (Left Tympanic) Resp 18 Wt 68.5 kg (151 lb) SpO2 96% BMI 29.74 kg/m? Pleasant overweight adult woman in no acute distress. Alert and oriented all spheres. Normal affect and cognition. Speech normal. No deficits to learning or comprehension. Skin warm, dry, pink to lips and nailbeds. Normal turgor. Respirations regular and unlabored. (more content not included)... [facility] 09-25-2022 Note HNO ID: [id number] Author: Quoc Landry PA-C Service: ? Author Type: Physician Lna Type: Progress Notes Filed: 09/25/2022 6:37 PM Note Text: 87 year old female with c/o Facility: [facility] Dates: 09/07-09/08/2022 ell at [facility]. Hit head, was sent to ER Admitted with UTI Got dizzy, fell Stopped due to diarrhea which improved after a few days. BM daily 09/06/2022 presented to [facility] emergency department due to an unwitnessed fall in her bathroom at the assisted living facility. Noticed she hit her head but does not remember details. States she thinks she was dizzy. Had another episode few days prior. She had just moved into the assisted living area 3 days prior and was a little disoriented. Vital signs 99.5 F-102-18-98/59-97% RA Physical exam notes: Well-developed, no acute distress. Contusion without boggy hematoma occipital scalp with no crepitation or depression. Neuro intact, GCS 15 Data: CBC abnormals: WBC 12.9 H-Hgb 12.0-HCT 36.9 L-PLT 218, RDW 50.9 with mixed indices. Neutrophil percentage 85.1, absolute neutrophil 10.9H absolute lymphs 0.66L Chems: WNL except BUN/creatinine ratio 25.1 H-glucose 129 H Troponin 159 H UA: Specific gravity 1.020-protein 30-ketone 50-RBC 0-WBC 10-25, rare bacteria, 0-[address]: No evidence of acute intercranial hemorrhage or injury. Mild senescent changes with atherosclerosis. CT of patient's head was obtained showing no acute traumatic abnormality or injury. EKG: Normal sinus rhythm VR 92, PACs present no injury pattern. Patient was treated empirically with Rocephin 1 g IV and culture was sent, was given IV fluids. Repeat troponin elevated Discussed with hospitalist with admission recommended Admission assessment and plan: 1. UTI: Placed on Keflex 500 mg p.o. 3 times daily, MedSurg telemetry 2. Hypertension: Blood pressure stable, resume lisinopril once verified 3. DVT prophylaxis with ambulation. 09/08/2022 WBC 6.2-Hgb 10.1-HCT 32.1-PLT 192, differential resolved except monocytes at 13.2%. Chemistries within normal limits except for chloride of 113, BUN/creatinine ratio 21.8 with BUN of 14, creatinine is 0.64. 09/07/2022 urine and blood culture showed no growth Medication reconciliation: New medication: Cipro 500 mg p.o. twice daily #12/0 Continue medications: Vitamin D3 2000 units daily Acetaminophen 500 mg 1000 mg p.o. every 8 hours ASA 81 mg chewable daily Held medications: Meloxicam 7.5 mg daily Discontinued medication: Lisinopril 5 mg daily HISTORIES FAMILY HISTORY Problem Relation Age of Onset Alzheimer's Disease Mother Cancer Brother LARYNGEAL Thyroid Sister Glaucoma Sister PAST MEDICAL HISTORY Diagnosis Date Age-related osteoporosis with current pathological fracture 06/28/2017 start fosamax 06/2017 Diverticulosis of colon (without mention of hemorrhage) Essential hypertension, benign 11/07/2011 External hemorrhoids without mention of complication Internal hemorrhoids without mention of complication Other and unspecified hyperlipidemia Polymyalgia rheumatica (HCC) 02/20/2018 Temporal arteritis (HCC) 09/05/2002 diagnosed 09/05/2002 with sed rate 103 Vitamin D deficiency 07/15/2010 PAST SURGICAL HISTORY Procedure Laterality Date ANESTHESIA TOTAL HIP ARTHROPLASTY Right 09/09/2020 Robotic assisted EB right Dr. Pabon APPENDECTOMY ARTHROPLASTY TOTAL SHOULDER Right 04/17/2017 Right reverse TSA COLONOSCOPY FLX DX W/COLLJ SPEC WHEN PFRMD 04/24/2007 Social History Tobacco Use Smoking status: Former Smokeless tobacco: Never Tobacco comments: smoked for brief period as teen Substance Use Topics Alcohol use: Yes Comment: occas. wine Drug use: No ACTIVE PROBLEM LIST Urge Incontinence Vitamin D Deficiency Essential Hypertension, Benign Arthritis of Right Knee Chronic Headaches Age-Related Osteoporosis Without Current Pathological Fracture Arthritis of Shoulder Temporal Arteritis (Hcc) Polymyalgia rheumatica (HCC) Hypercalcemia Due to Hypervitaminosis D [facility] Systemic Steroid User Encounter for Support and Coordination of Transition of Care Loose Right Total Knee Arthroplasty (Hcc) Current Outpatient Medications Medication Sig Dispense Refill meloxicam (MOBIC) 15 mg tablet Take 1 tablet by mouth once daily. With food. 30 tablet 1 lisinopril (ZESTRIL, PRINIVIL) 5 mg tablet Take 1 tablet by mouth once daily. 90 tablet 3 acetaminophen (TYLENOL) 500 mg tablet Take 1.5 tablets by mouth three times daily. aspirin, enteric coated (ASPIRIN, ENTERIC COATED) 81 mg EC tablet Take 81 mg by mouth once daily. Cholecalciferol, Vitamin D3, 2,000 unit cap Take 1 tablet by mouth once daily. 30 capsule 12 DAILY MULTIVITAMIN TAB Take one(1) tablet daily. 0 No current facility-administered medications for this visit. COVID-19 VACCINE(6 - Pfizer series) due on 03/28/2022 EXAM: BP 118/68 Puls (more content not included)... [facility] 09-25-2022 History of Presen t illness Narrative 87 year old female with c/o Facility: [facility] Dates: 09/07-09/08/2022 ell at [facility]. Hit head, was sent to ER Admitted with UTI Got dizzy, fell Stopped due to diarrhea which improved after a few days. BM daily 09/06/2022 presented to [facility] emergency department due to an unwitnessed fall in her bathroom at the assisted living facility. Noticed she hit her head but does not remember details. States she thinks she was dizzy. Had another episode few days prior. She had just moved into the assisted living area 3 days prior and was a little disoriented. Vital signs 99.5 F-102-18-98/59-97% RA Physical exam notes: Well-developed, no acute distress. Contusion without boggy hematoma occipital scalp with no crepitation or depression. Neuro intact, GCS 15 Data: CBC abnormals: WBC 12.9 H-Hgb 12.0-HCT 36.9 L-PLT 218, RDW 50.9 with mixed indices. Neutrophil percentage 85.1, absolute neutrophil 10.9H absolute lymphs 0.66L Chems: WNL except BUN/creatinine ratio 25.1 H-glucose 129 H Troponin 159 H UA: Specific gravity 1.020-protein 30-ketone 50-RBC 0-WBC 10-25, rare bacteria, 0-[address]: No evidence of acute intercranial hemorrhage or injury. Mild senescent changes with atherosclerosis. CT of patient's head was obtained showing no acute traumatic abnormality or injury. EKG: Normal sinus rhythm VR 92, PACs present no injury pattern. Patient was treated empirically with Rocephin 1 g IV and culture was sent, was given IV fluids. Repeat troponin elevated Discussed with hospitalist with admission recommended Admission assessment and plan: 1. UTI: Placed on Keflex 500 mg p.o. 3 times daily, MedSurg telemetry 2. Hypertension: Blood pressure stable, resume lisinopril once verified 3. DVT prophylaxis with ambulation. 09/08/2022 WBC 6.2-Hgb 10.1-HCT 32.1-PLT 192, differential resolved except monocytes at 13.2%. Chemistries within normal limits except for chloride of 113, BUN/creatinine ratio 21.8 with BUN of 14, creatinine is 0.64. 09/07/2022 urine and blood culture showed no growth Medication reconciliation: New medication: Cipro 500 mg p.o. twice daily #12/0 Continue medications: Vitamin D3 2000 units daily Acetaminophen 500 mg 1000 mg p.o. every 8 hours ASA 81 mg chewable daily Held medications: Meloxicam 7.5 mg daily Discontinued medication: Lisinopril 5 mg daily HISTORIES FAMILY HISTORY Problem Relation Age of Onset Alzheimer's Disease Mother Cancer Brother LARYNGEAL Thyroid Sister Glaucoma Sister PAST MEDICAL HISTORY Diagnosis Date Age-related osteoporosis with current pathological fracture 06/28/2017 start fosamax 06/2017 Diverticulosis of colon (without mention of hemorrhage) Essential hypertension, benign 11/07/2011 External hemorrhoids without mention of complication Internal hemorrhoids without mention of complication Other and unspecified hyperlipidemia Polymyalgia rheumatica (HCC) 02/20/2018 Temporal arteritis (HCC) 09/05/2002 diagnosed 09/05/2002 with sed rate 103 Vitamin D deficiency 07/15/2010 PAST SURGICAL HISTORY Procedure Laterality Date ANESTHESIA TOTAL HIP ARTHROPLASTY Right 09/09/2020 Robotic assisted EB right Dr. Pabon APPENDECTOMY ARTHROPLASTY TOTAL SHOULDER Right 04/17/2017 Right reverse TSA COLONOSCOPY FLX DX W/COLLJ SPEC WHEN PFRMD 04/24/2007 Social History Tobacco Use Smoking status: Former Smokeless tobacco: Never Tobacco comments: smoked for brief period as teen Substance Use Topics Alcohol use: Yes Comment: occas. 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 With food. 30 tablet 1 lisinopril (ZESTRIL, PRINIVIL) 5 mg tablet Take 1 tablet by mouth once daily. 90 tablet 3 acetaminophen (TYLENOL) 500 mg tablet Take 1.5 tablets by mouth three times daily. aspirin, enteric coated (ASPIRIN, ENTERIC COATED) 81 mg EC tablet Take 81 mg by mouth once daily. Cholecalciferol, Vitamin D3, 2,000 unit cap Take 1 tablet by mouth once daily. 30 capsule 12 DAILY MULTIVITAMIN TAB Take one(1) tablet daily. 0 No current facility-administered medications for this visit. COVID-19 VACCINE(6 - Pfizer series) due on 03/28/2022 EXAM: BP 118/68 Pulse 75 Resp 18 Wt 67.1 kg (148 lb) SpO2 96% BMI 29.15 kg/m Pleasant well appearing overweight older woman in no acute distress. Alert and oriented all spheres. Normal affect and cognition. Speech normal. No deficits to learning or comprehension. Skin warm, dry, pink to lips and nailbeds. Normal turgor. Respirations regular and unlabored. HEENT: NCAT. No scleral icterus or conjunctival injection. TM's clear. Nose and oropharynx free from injection or lesion. Oral membranes mildly dry and pink. No cervical lymph nodes. Thyroid non-tender, no masses, or enlargement. Carotids pulses 2+/4+ without bruits. No JVD with HOB at 30 degrees. Chest is normal shape. Lungs are clear to all bowens with good air exchange through out. HRRR without murmur or gallop. No lifts, heaves, or rubs. Abdomen: active bowel sounds throughout, soft, nontender, no masses or organomegaly. No CVAT. Extrem: no clubbing or cyanosis. Edema: none. Extremities are warm and pink with prompt capillary refill. Component Latest Ref Rng & Units 09/25/2022 GLUCOSE UA (POCT) Negative mg/dL Negative BILIRUBIN UA (POCT) Negative Negative KETONE UA (POCT) Negative mg/dL Negative SPECIFIC GRAVITY UA (POCT) 1.005 - 1.030 >=1.030 HEMOGLOBIN/BLOOD UA (POCT) Negative Trace-lysed (A) PH UA (POCT) 4.5 - 8.0 5.0 PROTEIN UA (POCT) Negative mg/dL 30 (A) UROBILINOGEN UA (POCT) Normal E.U./dL 0.2 NITRITE UA (POCT) Negative Negative LEUKOCYTES UA (POCT) Negative Negative COLOR UA (POCT) Yellow CLARITY UA (POCT) Clear ASSESSMENT/PLAN: 1. Hospital discharge follow-up - ICD9: V67.59, ICD10: Z09 (primary diagnosis) Completed reconciliation data and medications. 2. Acute cystitis without hematuria - ICD9: 595.0, ICD10: N30.00 Culture was negative - UA DIP, URINE (POC) 3. Fall, sequela - ICD9: 909.4, E929.3, ICD10: W19.XXXS Status at baseline. Quoc Landry PA-C documented in this encounter [facility] 09-13-2022 Miscellaneous Notes Talked to Soraya and she verbally understands patient does not need to change antiboitics. Please let them know 09/07/2022 urine culture was negative. Does not require additional antibiotics. Julius Godwin PA-C Printed and placed on provider desk I need a copy of the urinalysis and culture GREG Julius Godwin PA-C Soraya from [place] call and states that patient was seen at [facility] on 09/07 and admitted for UTI. While in hospital patient was given IV antibiotics. Patient was discharged on 09/08/2022 and was sent home with a prescription for Cipro 500 mg BID. Soraya states that patient states that she has been unable to sleep since taking Cipro. Soraya asking if there is anything else patient can be prescribed for UTI. Patient had requested a hospital follow up appointment with provider. Patient is scheduled for 09/25/2022. Soraya is going to check with patient to see why she requested appointment that far out. Soraya is going to see if patient will schedule appointment with provider sooner. Please review and advise, Albina Sorensen RN documented in this encounter [facility] 07-31-2022 Miscellaneous Notes Trial and can refill if helps The following approved medication requests have been transmitted electronically. Requested Prescriptions Signed Prescriptions Disp Refills meloxicam (MOBIC) 15 mg tablet 30 tablet 1 Sig: Take 1 tablet by mouth once daily. With food. Quoc Landry PA-C See message from pt's son regarding pt request for Mobic. Advise. Jacinda Gonzalez Ma documented in this encounter [facility] 06-06-2022 Note HNO ID: [id number] Author: Quoc Landry PA-C Service: ? Author Type: Physician Lna Type: Progress Notes Filed: 06/06/2022 12:45 PM Note Text: 87 year old female with c/o here for follow up Essential hypertension, benign (primary encounter diagnosis) Current meds: Lisinopril 5mg daily ASA 81mg EC daily? Patient is compliant with meds Yes Monitors bp at home: No. If yes, readings: Denies side effects: Yes. Chest pain: No. Dyspnea: No. Edema: No. Palpitations: No. Syncope: No. Headache: No. Dizziness: No. Last 3 Encounter BP Readings: Date: BP: 11/25/2021 124/68 05/05/2021 120/66 03/15/2021 124/76 Last 2 Encounter Wt Readings: Date: Wt: 11/25/2021 69.4 kg (153 lb) 05/05/2021 68 kg (150 lb) Temporal arteritis (hcc) Polymyalgia rheumatica (hcc) [facility] systemic steroid user Chronic nonintractable headache, unspecified headache type No bad headaches, jaw claudication. Hypercalcemia due to hypervitaminosis d Age-related osteoporosis without current pathological fracture Vitamin d deficiency Worst pain is in morning in back and hips. Uses foot pedal to exercise Current medications: Tylenol 500mg 1 tabs twice a day Component Latest Ref Rng AND Units 06/24/2020 04/26/2021 12/03/2021 Normalized CAlcium 1.08 - 1.30 mmol/L 1.30 Ionized Calcium 1.08 - 1.30 mmol/L 1.33 (H) Vitamin D 25 Hydroxy 31.0 - 80.0 ng/mL 85.1 (H) 53.8 60.2 PTH, Intact 15 - 65 pg/mL 48 42 43 Vit D1,25 Dihydroxy 19.9 - 79.3 pg/mL 46.1 Urge incontinence Some nights 3-4 times, some nights once. HISTORIES FAMILY HISTORY Problem Relation Age of Onset Alzheimer's Disease Mother Cancer Brother LARYNGEAL Thyroid Sister Glaucoma Sister PAST MEDICAL HISTORY Diagnosis Date Age-related osteoporosis with current pathological fracture 06/28/2017 start fosamax 06/2017 Diverticulosis of colon (without mention of hemorrhage) Essential hypertension, benign 11/07/2011 External hemorrhoids without mention of complication Internal hemorrhoids without mention of complication Other and unspecified hyperlipidemia Polymyalgia rheumatica (HCC) 02/20/2018 Temporal arteritis (HCC) 09/05/2002 diagnosed 09/05/2002 with sed rate 103 Vitamin D deficiency 07/15/2010 PAST SURGICAL HISTORY Procedure Laterality Date ANESTHESIA TOTAL HIP ARTHROPLASTY Right 09/09/2020 Robotic assisted EB right Dr. Pabon APPENDECTOMY ARTHROPLASTY TOTAL SHOULDER Right 04/17/2017 Right reverse TSA COLONOSCOPY FLX DX W/COLLJ SPEC WHEN PFRMD 04/24/2007 Social History Tobacco Use Smoking status: Former Smokeless tobacco: Never Tobacco comments: smoked for brief period as teen Substance Use Topics Alcohol use: Yes Comment: occas. 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 90 tablet 3 acetaminophen (TYLENOL) 500 mg tablet Take 1.5 tablets by mouth three times daily. aspirin, enteric coated (ASPIRIN, ENTERIC COATED) 81 mg EC tablet Take 81 mg by mouth once daily. Cholecalciferol, Vitamin D3, 2,000 unit cap Take 1 tablet by mouth once daily. 30 capsule 12 DAILY MULTIVITAMIN TAB Take one(1) tablet daily. 0 No current facility-administered medications for this visit. ADVANCE DIRECTIVE DISCUSSION due on 02/05/2022 DEPRESSION ASSESSMENT due on 02/05/2022 EXAM: BP 120/64 Pulse 91 Resp 16 Wt 68.9 kg (152 lb) SpO2 97% BMI 29.93 kg/m? Pleasant overweight but well appearing elderly woman in no acute distress. Alert and oriented all spheres. Normal affect and cognition. Speech normal. No deficits to learning or comprehension. Skin warm, dry, pink to lips and nailbeds. Normal turgor. Respirations regular and unlabored. HEENT: NCAT. No scleral icterus or conjunctival injection. TM's clear. Nose and oropharynx free from injection or lesion. Oral membranes moist and pink. No cervical lymph nodes. Thyroid non-tender, no masses, or enlargement. Carotids pulses 2+/4+ without bruits. No JVD with HOB at 30 degrees. Chest is normal shape. Lungs are clear to all bowens with good air exchange through out. HRRR without murmur or gallop. No lifts, heaves, or rubs. Extrem: no clubbing or cyanosis. Edema: trace pitting around ankles. Extremities are warm and pink with prompt capillary refill. Able to rise from chair and walk to door and back unaided. Some of this note was copied and pasted for the purpose o (more content not included)... [facility] 03-23-2022 Miscellaneous Notes Order faxed Get Medical Advice on 03/14/22 CONSULT TO ENDOCRINOLOGY Julius Godwin PA-C Please file order, bone clinic is through Dr Corbin. Once completed, will fax to office. Please schedule consult [facility]. Osteoporosis with hx joint pain from fosamax. Julius Godwin PA-C documented in this encounter [facility] 01-16-2022 Note HNO ID: [id number] Author: RT Ryan(R) Service: ? Author Type: Technologist Type: Progress Notes Filed: 01/16/2022 9:56 AM Note Text: Radiology Service Progress Note PATIENT NAME: Macie Walls DATE OF SERVICE: January 16, 2022 TIME: 9:41 AM PATIENT IDENTITY VERIFICATION COMPLETED USING TWO (2) IDENTIFIERS: Name and Date of confirmed by patient verbally. FALL SCREENING: Has the patient had 2 falls in the last year or 1 fall with injury or currently using an Ambulatory Assistive Device (Walker, Cane, Wheelchair, Crutches, etc.)? No PATIENT GENDER DATA: Female. status: : No status: NO. PATIENT RELEVANT IMPLANT DATA REVIEWED: Not Applicable RADIOLOGY DEPARTMENT: Bone Density PERIPHERAL IV DATA: Not applicable SIGNED BY: RT Ryan(R) January 16, 2022 9:41 AM [facility] 01-16-2022 History of Presen t illness Narrative Radiology Service Progress Note PATIENT NAME: Macie Walls DATE OF SERVICE: January 16, 2022 TIME: 9:41 AM PATIENT IDENTITY VERIFICATION COMPLETED USING TWO (2) IDENTIFIERS: Name and Date of confirmed by patient verbally. FALL SCREENING: Has the patient had 2 falls in the last year or 1 fall with injury or currently using an Ambulatory Assistive Device (Walker, Cane, Wheelchair, Crutches, etc.)? No PATIENT GENDER DATA: Female. status: : No status: NO. PATIENT RELEVANT IMPLANT DATA REVIEWED: Not Applicable RADIOLOGY DEPARTMENT: Bone Density PERIPHERAL IV DATA: Not applicable SIGNED BY: RT Ryan(R) January 16, 2022 9:41 AM documented in this encounter [facility] 11-25-2021 Instructions M Kenyon Landry PA-C - 11/25/2021 10:45 AM EDT BONE MINERAL DENSITY PATIENT INSTRUCTIONS ========= Bone mineral density testing measures the amount of calcium in certain parts of your bones. This information determines how strong your bones are. The test is used to detect osteoporosis, a disease in which the bone's mineral content and density are low, increasing a person's risk of fractures. The lumbar spine (lower back) and the hip are the skeletal sites usually examined. For the test, remember that: 1. You cannot take this test if you are . 2. Eat a normal diet on the day of the test. 3. Take your medications as you normally would. 4. DO NOT take calcium supplements (such as Tums) for 24 hours before the test. 5. On the day of the test, leave valuables (jewelry or credit cards) at home. 6. The test should be performed prior to oral, rectal or IV contrast studies, or at least 7 days after any of these studies. For the test, you may be asked to wear a hospital gown. You will lie on your back, on a padded table, in a comfortable position. Generally, you can resume your usual activities immediately. documented in this encounter [facility] 11-25-2021 History of Presen t illness Narrative 86 year old female with c/o 6 month follow up Needs handicap plackard HTN: Current meds: Lisinopril 5mg daily [id number] EC daily? Patient is compliant with meds Yes Monitors bp at home: No. If yes, readings: Denies side effects: Yes. Chest pain: No. Dyspnea: No. Edema: No. Palpitations: No. Syncope: No. Headache: No. Dizziness: No. 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 Uses foot pedal to exercise Current medications: Tylenol 500mg 1.5 tabs three times a day? S/p RKA 02/23/2021 doing very well. Exercising daily Worst pain is in morning in back and hips. Uses foot pedal to exercise Current medications: Tylenol 500mg 1.5 tabs three times a day if needed HISTORIES FAMILY HISTORY Problem Relation Age of Onset Alzheimer's Disease Mother Cancer Brother LARYNGEAL Thyroid Sister Glaucoma Sister PAST MEDICAL HISTORY Diagnosis Date Age-related osteoporosis with current pathological fracture 06/28/2017 start fosamax 06/2017 Diverticulosis of colon (without mention of hemorrhage) Essential hypertension, benign 11/07/2011 External hemorrhoids without mention of complication Internal hemorrhoids without mention of complication Other and unspecified hyperlipidemia Polymyalgia rheumatica (HCC) 02/20/2018 Temporal arteritis (HCC) 09/05/2002 diagnosed 09/05/2002 with sed rate 103 Vitamin D deficiency 07/15/2010 PAST SURGICAL HISTORY Procedure Laterality Date ANESTHESIA TOTAL HIP ARTHROPLASTY Right 09/09/2020 Robotic assisted EB right Dr. Pabon APPENDECTOMY ARTHROPLASTY TOTAL SHOULDER Right 04/17/2017 Right reverse TSA COLONOSCOPY FLX DX W/COLLJ SPEC WHEN PFRMD 04/24/2007 Social History Tobacco Use Smoking status: Former Smokeless tobacco: Never Tobacco comments: smoked for brief period as teen Substance Use Topics Alcohol use: Yes Comment: occas. 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 60 tablet 2 lisinopril (ZESTRIL, PRINIVIL) 5 mg tablet Take 1 tablet by mouth once daily. 90 tablet 3 acetaminophen (TYLENOL) 500 mg tablet Take 1.5 tablets by mouth three times daily. aspirin, enteric coated (ASPIRIN, ENTERIC COATED) 81 mg EC tablet Take 81 mg by mouth once daily. Cholecalciferol, Vitamin D3, 2,000 unit cap Take 1 tablet by mouth once daily. 30 capsule 12 DAILY MULTIVITAMIN TAB Take one(1) tablet daily. 0 No current facility-administered medications for this visit. SHINGRIX VACCINE(1 of 2) Never done DTAP,TDAP,TD(1 - Tdap) due on 03/19/2009 ADVANCE DIRECTIVE DISCUSSION Never done DEPRESSION ASSESSMENT Never done COVID-19 VACCINE(4 - Booster for Pfizer series) due on 02/08/2021 INFLUENZA(1) due on 10/06/2021 EXAM: BP 124/68 Pulse 68 Resp 16 Wt 69.4 kg (153 lb) SpO2 96% BMI 30.13 kg/m Pleasant overweight but healthy appearing older woman in no acute distress. Alert and oriented all spheres. Normal affect and cognition. Speech normal. No deficits to learning or comprehension. Skin warm, dry, pink to lips and nailbeds. Normal turgor. Respirations regular and unlabored. HEENT: NCAT. No scleral icterus or conjunctival injection. TM's clear. Nose and oropharynx free from injection or lesion. Oral membranes moist and pink. Teeth in good repair. No cervical lymph nodes. Thyroid non-tender, no masses, or enlargement. Carotids pulses 2+/4+ without bruits. Chest is normal shape. Lungs are clear to all bowens with good air exchange through out. HRRR without murmur or gallop. No lifts, heaves, or rubs. Extrem: no clubbing or cyanosis. Edema: none. Extremities are warm and pink with prompt capillary refill. Able to rise independently, walk to door and back without gait hesitancy ASSESSMENT/PLAN: 1. Essential hypertension, benign - ICD9: 401.1, ICD10: I10 (primary diagnosis) - good control - Recommended regular aerobic exercise. - Recommend home blood pressure monitoring, to bring results in on next visit - Goal of BP <130/80 - LISINOPRIL 5 MG TABLET - BASIC METABOLIC PNL - CBC 2. Temporal arteritis (HCC) - ICD9: 446.5, ICD10: M31.6 3. Polymyalgia rheumatica (HCC) - ICD9: 725, ICD10: M35.3 Quiescent, asymptomatic - SED RATE WESTERGREN 4. Need for influenza vaccination - ICD9: V04.81, ICD10: Z23 - INFLUENZA SEASONAL QUADRIVALENT HIGH DOSE AGE 65+ 5. Encounter for screening for osteoporosis - ICD9: V82.81, ICD10: Z13.820 - DXA-AXIAL SKELETON 6. Need for COVID-19 vaccine - ICD9: V04.89, ICD10: Z23 - PFIZER-BIONTCleverlize COVID-19 BIVALENT BOOSTER VACCINE, AGE 12+ YR 7. Low vitamin D level - ICD9: 790.6, ICD10: R79.89 Continue supplements with Vit D and calcium - VITAMIN D 25 HYDROXY F/u 6 months and as needed. FREIDA Alba PA-C documented in this encounter [facility] 05-05-2021 Instructions Quco Landry PA-C - 05/05/2021 10:15 AM EDT Cut prednisone 20mg in half and 1/2 tab daily x 3 days and then stop documented in this encounter [facility] 05-05-2021 History of Presen t illness Narrative 86 year old female with c/o f/u on flare with prednisone Tylenol once a day for pain. Prednisone did not seem like it made a whole lot of difference. Patient notes that pain symptoms were in shoulders and hips primarily to begin with but also in other joints including wrists and fingers, feels now that it may be osteoarthritis. Generally when she has had PMR symptoms improved almost immediately with prednisone. Sed rate was low. Continues to make progress post knee surgery, actively walking and exercising. HISTORIES FAMILY HISTORY Problem Relation Age of Onset Alzheimer's Disease Mother Cancer Brother LARYNGEAL Thyroid Sister Glaucoma Sister PAST MEDICAL HISTORY Diagnosis Date Age-related osteoporosis with current pathological fracture 06/28/2017 start fosamax 06/2017 Diverticulosis of colon (without mention of hemorrhage) Essential hypertension, benign 11/07/2011 External hemorrhoids without mention of complication Internal hemorrhoids without mention of complication Other and unspecified hyperlipidemia Polymyalgia rheumatica (HCC) 02/20/2018 Temporal arteritis (HCC) 09/05/2002 diagnosed 09/05/2002 with sed rate 103 Vitamin D deficiency 07/15/2010 PAST SURGICAL HISTORY Procedure Laterality Date ANESTHESIA TOTAL HIP ARTHROPLASTY Right 09/09/2020 Robotic assisted EB right Dr. Pabon APPENDECTOMY ARTHROPLASTY TOTAL SHOULDER Right 04/17/2017 Right reverse TSA COLONOSCOPY FLX DX W/COLLJ SPEC WHEN PFRMD 04/24/2007 Social History Tobacco Use Smoking status: Former Smoker Smokeless tobacco: Never Used Tobacco comment: smoked for brief period as teen Substance Use Topics Alcohol use: Yes Comment: occas. 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 30 tablet 0 meloxicam (MOBIC) 7.5 mg tablet Take 1 tablet by mouth twice daily. lisinopril (ZESTRIL, PRINIVIL) 5 mg tablet Take 1 tablet by mouth once daily. 90 tablet 3 acetaminophen (TYLENOL) 500 mg tablet Take 1.5 tablets by mouth three times daily. aspirin, enteric coated (ASPIRIN, ENTERIC COATED) 81 mg EC tablet Take 81 mg by mouth once daily. Cholecalciferol, Vitamin D3, 2,000 unit cap Take 1 tablet by mouth once daily. 30 capsule 12 DAILY MULTIVITAMIN TAB Take one(1) tablet daily. 0 No current facility-administered medications for this visit. SHINGRIX VACCINE(1 of 2) Never done DTAP,TDAP,TD(1 - Tdap) due on 03/19/2009 ADVANCE DIRECTIVE DISCUSSION Never done EXAM: BP 120/66 Pulse 68 Resp 16 Wt 68 kg (150 lb) SpO2 97% BMI 29.54 kg/m Pleasant obese adult woman in no acute distress. Alert and oriented all spheres. Normal affect and cognition. Speech normal. No deficits to learning or comprehension. Skin warm, dry, pink to lips and nailbeds. Normal turgor. Respirations regular and unlabored. Chest is normal shape. Lungs are clear to all bowens with good air exchange through out. HRRR without murmur or gallop. No lifts, heaves, or rubs. Extrem: no clubbing or cyanosis. Edema: Right knee looks good, minimal swelling. She is walking well, rise from chair without assistance. Does have positive tender trigger points both posterior shoulders. Extremities are warm and pink with prompt capillary refill. ASSESSMENT/PLAN: 1. Polymyalgia rheumatica (HCC) - ICD9: 725, ICD10: M35.3 (primary diagnosis) 2. 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 S/P total knee arthroplasty, right - ICD9: V43.65, ICD10: Z96.651 Patient agrees that she has not benefited from steroids and due to postop condition would recommend that we wean off of them. We will have her cut tablets in half for 3 days and stop. I did refill prescription for meloxicam which seems to have helped in the past. He has continued to use Tylenol as well. We will keep in touch if she feels this is not adequate. The following approved medication requests have been transmitted electronically. Signed Prescriptions Disp Refills meloxicam (MOBIC) 7.5 mg tablet 60 tablet 2 Sig: Take 1 tablet by mouth twice daily. DALY: FREIDA Chaves PA-C documented in this encounter [facility] documented as of this encounter (statuses as of 05/05/2021) [facility]05-20-2021 History of Past illness Narrative* Problem Noted Date Resolved Date Elevated coronary artery calcium score 1 06/24/2020 Tendonitis 08/11/2010 05/11/2016 Elevated sed rate 04/30/2010 05/11/2016 documented as of this encounter (statuses as of 11/26/2021) [facility]21 History of Past illness Narrative* Problem Noted Date Resolved Date Elevated coronary artery calcium score 1 06/24/2020 Tendonitis 08/11/2010 05/11/2016 Elevated sed rate 04/30/2010 05/11/2016 documented as of this encounter (statuses as of 11/28/2021) [facility] History of Past illness Narrative* Problem Noted Date Resolved Date Elevated coronary artery calcium score 1 06/24/2020 Tendonitis 08/11/2010 05/11/2016 Elevated sed rate 04/30/2010 05/11/2016 documented as of this encounter (statuses as of 03/23/2022) [facility] History of Past illness Narrative* Problem Noted Date Resolved Date Elevated coronary artery calcium score 1 06/24/2020 Tendonitis 08/11/2010 05/11/2016 Elevated sed rate 04/30/2010 05/11/2016 documented as of this encounter (statuses as of 08/01/2022) [facility] History of Past illness Narrative* Problem Noted Date Diagnosed Date Resolved Date Elevated coronary artery calcium score 06/24/2020 06/24/2020 Tendonitis 08/11/2010 05/11/2016 Elevated sed rate 04/30/2010 05/11/2016 documented as of this encounter (statuses as of 09/10/2022) [facility] History of Past illness Narrative* Problem Noted Date Diagnosed Date Resolved Date Elevated coronary artery calcium score 06/24/2020 06/24/2020 Tendonitis 08/11/2010 05/11/2016 Elevated sed rate 04/30/2010 05/11/2016 documented as of this encounter (statuses as of 09/13/2022) [facility] History of Past illness Narrative* Problem Noted Date Diagnosed Date Resolved Date Elevated coronary artery calcium score 06/24/2020 06/24/2020 Tendonitis 08/11/2010 05/11/2016 Elevated sed rate 04/30/2010 05/11/2016 documented as of this encounter (statuses as of 09/26/2022) [facility] History of Past illness Narrative* Problem Noted Date Diagnosed Date Resolved Date Elevated coronary artery calcium score 06/24/2020 06/24/2020 Tendonitis 08/11/2010 05/11/2016 Elevated sed rate 04/30/2010 05/11/2016 documented as of this encounter (statuses as of 12/10/2022) [facility] Diagnosis Polymyalgia rheumatica (HCC)- Primary Polymyalgia rheumatica Arthritis of shoulder Unspecified arthropathy, shoulder region S/P total knee arthroplasty, right [facility] Diagnosis Essential hypertension, benign- Primary Temporal arteritis (HCC) Giant cell arteritis Polymyalgia rheumatica (HCC) Polymyalgia rheumatica Need for influenza vaccination Need for prophylactic vaccination and inoculation against influenza Encounter for screening for osteoporosis Special screening for osteoporosis Need for COVID-19 vaccine Low vitamin D level [facility] Diagnosis Age-related osteoporosis without current pathological fracture- Primary Senile osteoporosis [facility] Diagnosis Hospital discharge follow-up- Primary Other follow-up examination Acute cystitis without hematuria Acute cystitis Fall, sequela [facility] Diagnosis Encounter for screening for osteoporosis Special screening for osteoporosis documented in this encounter [facility] Summary Purpose Family History No Family History Records FoundNo Family History Records FoundNo Family History Records FoundNo Family History Records Found Advance Directives No Advanced Directives Records FoundDocuments on File Type Date Recorded 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 Advance Directive(s) 03/08/2011 12:00 AM Advance Directive(s) 05/14/2007 12:00 AM Documents on File Type Date Recorded 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 Advance Directive(s) 03/08/2011 Advance Directive(s) 05/14/2007 Documents on File Type Date Recorded 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 Advance Directive(s) 03/08/2011 Advance Directive(s) 05/14/2007 Reason for Referral Specialty Diagnoses / Procedures Referred By Contac t Referred To Contact Endocrinology Diagnoses Age-related osteoporosis without current pathological fracture Procedures CONSULT TO ENDOCRINOLOGY OFFICE/OUTPATIENT NEW HIGH MDM 60-74 MINUTES Quoc Landry PA-C [address] [place] [address] Referral ID Status Reason Start Date Expiration Date Visits Requested Visits Authorized [id number] Authorized PCP Requested Referral 03/21/2022 03/21/2023 1 1 Additional Source Comments INFORMATION SOURCE (unrecogn ized section and content) DATE CREATED AUTHOR AUTHOR'S ORGANIZ ATION 07/27/2017 [facility] DATE CREATED AUTHOR AUTHOR'S ORGANIZ ATION 09/10/2020 [facility] ([place]) DATE CREATED AUTHOR AUTHOR'S ORGANIZ ATION 01/09/2023 [facility] Source Comments (unrecognize d section and content) In the event this informatio n is protected by the Federal Confidentiality of Alcohol and Drug Abuse Patient Records regulations: The Federal rules restrict any use of the information to criminally investigate or prosecute any alcohol or drug abuse patient.[facility] the event this information is protected by the Federal Confidentiality of Alcohol and Drug Abuse Patient Records regulations: The Federal rules restrict any use of the information to criminally investigate or prosecute any alcohol or drug abuse patient.[facility] the event this information is protected by the Federal Confidentiality of Alcohol and Drug Abuse Patient Records regulations: The Federal rules restrict any use of the information to criminally investigate or prosecute any alcohol or drug abuse patient.[facility] the event this information is protected by the Federal Confidentiality of Alcohol and Drug Abuse Patient Records regulations: The Federal rules restrict any use of the information to criminally investigate or prosecute any alcohol or drug abuse patient.[facility] the event this information is protected by the Federal Confidentiality of Alcohol and Drug Abuse Patient Records regulations: The Federal rules restrict any use of the information to criminally investigate or prosecute any alcohol or drug abuse patient.[facility] the event this information is protected by the Federal Confidentiality of Alcohol and Drug Abuse Patient Records regulations: The Federal rules restrict any use of the information to criminally investigate or prosecute any alcohol or drug abuse patient.[facility] the event this information is protected by the Federal Confidentiality of Alcohol and Drug Abuse Patient Records regulations: The Federal rules restrict any use of the information to criminally investigate or prosecute any alcohol or drug abuse patient.[facility] the event this information is protected by the Federal Confidentiality of Alcohol and Drug Abuse Patient Records regulations: The Federal rules restrict any use of the information to criminally investigate or prosecute any alcohol or drug abuse patient.[facility] the event this information is protected by the Federal Confidentiality of Alcohol and Drug Abuse Patient Records regulations: The Federal rules restrict any use of the information to criminally investigate or prosecute any alcohol or drug abuse patient.[facility] Reason for Visit (unrecogniz ed section and content) Reason Onset Date Comments 6 Month Exam Immunizations 11/25/2021 Flu vaccination Reason Comments Opened In Error Reason Comments Patient Update Reason Comments Hospital F/U [facility] 09/06/22-09/08/22 [place] Care Teams (unrecognized sec tion and content) Steward/Stewardess Relationship Specialty Start Date End Date Quoc Landry PA-C [address] [facility] [place] [address] PCP - General Family Medicine 07/01/20 Steward/Stewardess Relationship Specialty Start Date End Date Quoc Landry PA-C [address] [facility] [place] [address] PCP - General Family Medicine 07/01/20 Steward/Stewardess Relationship Specialty Start Date End Date Quoc Landry PA-C [address] [facility] [place] [address] PCP - General Family Medicine 07/01/20 Steward/Stewardess Relationship Specialty Start Date End Date Quoc Landry PA-C [address] [facility] [place] [address] PCP - General Family Medicine 07/01/20 Steward/Stewardess Relationship Specialty Start Date End Date Quoc Landry PA-C [address] [facility] [place] [address] PCP - General Family Medicine 07/01/20 Steward/Stewardess Relationship Specialty Start Date End Date Quoc Landry PA-C [address] [facility] [place] [address] PCP - General Family Medicine 07/01/20 Steward/Stewardess Relationship Specialty Start Date End Date Quoc Landry PA-C [address] [facility] [place] [address] PCP - General Family Medicine 07/01/20 Steward/Stewardess Relationship Specialty Start Date End Date Quoc Landry PA-C [address] [facility] [place] [address] PCP - General Family Medicine 07/01/20 FOR RECORDS PERTAINING TO PATIENTS WHO ARE OR HAVE BEEN ENROLLED IN A CHEMICAL DEPENDENCY/SUBSTANCEABUSE PROGRAM, SOME INFORMATION MAY BE OMITTED. This clinical summary was aggregated from multiple sources. Caution should be exercised in using it in the provision of clinical care. This summary normalizes information from multiple sources, and as a consequence, information in this document may materially change the coding, format and clinical context of patient data. In addition, data may be omitted in some cases. CLINICAL DECISIONS SHOULD BE BASED ON THE PRIMARY CLINICAL RECORDS. [facility]. provides no warranty or guarantee of the accuracy or completeness of information in this document.
[2023-03-04 10:33] LABS: Bacteria 0 SEEN /hpf (None Seen); Mucous, Urine 0 SEEN /hpf (<or=2+); Red Blood Cells-Urine 0 SEEN /hpf (0-5)
[2023-03-04 10:34] LABS: Color, Urine Yellow (Yellow); Glucose, Dipstick Normal (Normal); Ketone-Dipstick Negative (Negative); Leukocyte Esterase-Dipstick 100 /ul (Negative); Nitrite-Dipstick Negative (Negative); Occult Blood-Urine 25 /ul (Negative); Protein-Dipstick 30 mg/dl (Negative); Urine Bilirubin Dipstick Negative (Negative); Urine Clarity Clear (Clear); Urine Urobilinogen Normal (Normal)
[2023-03-04 10:36] LABS: Absolute Lymphocyte Count 1.43 X10^3/uL (0.83-4.51); Absolute Neutrophil Count 3.1 X10^3/uL (2.0-7.7); Basophil# 0.03 X10^3/uL; Basophil% 0.6 % (0-1); Eosinophil# 0.06 X10^3/uL; Eosinophils% 1.2 % (0-5); Hematocrit 42.1 % (37-47); Hemoglobin 13.2 g/dL (12.0-15.0); Lymphocyte # 1.43 X10^3/ul (0.83-4.51); Lymphocyte % 27.8 % (19-41); Mean Corp Hgb Conc 31.4 g/dL (32-36); Mean Corpuscular Hgb 31.5 pg (27.0-32.0); Mean Corpuscular Volume 100.5 fL (81-99); Mean Platelet Vol. 9.7 fl (6.2-12.0); Monocyte# 0.53 X10^3/uL; Monocyte% 10.3 % (0-10); NRBC Flagged by Analyzer 0 % (0-5); Neutrophil # 3.08 X10^3/uL (2.7-7.7); Neutrophil % 59.9 % (47-70); Platelet Count 272 K/mm3 (150-450); RBC Distribution Width CV 16.7 % (11.6-14.6); Red Blood Count 4.19 M/mm3 (4.2-5.4); White Blood Count 5.1 K/mm3 (4.4-11.0)
[2023-03-04 10:44] LABS: Squamous Epithelial Cells - UA 0-5 SEEN /hpf (5-10); White Blood Cells 5-10 SEEN /hpf (0-5)
[2023-03-04 11:06] LABS: Anion Gap 4 (5-15); BUN 15 mg/dL (7-18); BUN/Creat Ratio 18.7 RATIO (10-20); Calcium,Total 10.2 mg/dL (8.5-10.1); Chloride 110 mmol/L (98-107); EST Glomerular Filtration Rate 72 mL/min (>60); Est Glom Filt Rate - Afr Amer 87 mL/min (>60); Estimated Creatinine Clearance 41.06 ml/min; Glucose 105 mg/dL (74-106); Potassium 4.2 mmol/L (3.5-5.1); Sodium Level 140 mmol/L (136-145); Troponin-I HS 60 pg/mL (3.0-54.0)
[2023-03-04] MEDS: Ondansetron 4 MG/2 ML Vial IV (11:15)
[2023-03-04 12:10] VITALS: BP 162/77; PULSE 93; RESP 18; O2SAT 99
== END 2023-03-04 12:20 | disposition home or self-care (01) ==
PROVIDERS: Emergency Provider Emergency Medicine; PCP Physician Assistant; Visit Provider Emergency Medicine
DX: B34.9 Viral infection, unspecified (principal); R06.00 Dyspnea, unspecified; R11.0 Nausea; Z11.52 Encounter for screening for COVID-19; Z79.82 Long term (current) use of aspirin; Z79.899 Other long term (current) drug therapy; I10 Essential (primary) hypertension; Z96.651 Presence of right artificial knee joint
CPT/HCPCS: 71045; 80048; 81001; 84484; 85025; 87631; 93005; 96374; 99284; A4216; J2405

== ENCOUNTER 2023-06-26 10:02 | Observation (INO) | payer MEDICARE, SELFPAY ==
[2023-06-26 10:04] VITALS: BP 158/79; PULSE 90; RESP 16; TEMP 35.5; O2SAT 97
--- NOTE | 2023-06-26 10:22 | EKG12_ITS ---
Test Reason : SOB Blood Pressure : / mmHG Vent. Rate : 088 BPM Atrial Rate : 088 BPM P-R Int : 162 ms QRS Dur : 112 ms QT Int : 356 ms P-R-T Axes : 063 -41 043 degrees QTc Int : 430 ms Sinus rhythm with Premature supraventricular complexes and with frequent Premature ventricular comple xes Left axis deviation Incomplete right bundle branch block Left ventricular hypertrophy ( Nonspecific ST changes Abnormal ECG Confirmed by Adria Samuel ([id number]), dictionary editor FRANKY GAN ([id number]) on 06/27/2023 1:13:35 PM Referred By: Confirmed By:Adria Samuel
--- NOTE | 2023-06-26 10:22 | CT_ITS ---
EXAM: CT HEAD WITHOUT INTRAVENOUS CONTRAST CLINICAL INDICATION: headache, off balance TECHNIQUE: Multiple axial images were obtained of the head without intravenous contrast. This CT exam was performed using one or more of the following dose reduction techniques: automated exposure control, adjustment of the mA and/or kV according to patient size, and/or use of iterative reconstruction technique. COMPARISON: No relevant prior studies available. FINDINGS: BRAIN AND EXTRA-AXIAL SPACES: No hemorrhage or mass effect. No acute ischemia. Areas of diminished white matter density noted within both cerebral hemispheres suggestive of chronic microvascular change. Prominence of the cortical sulci and ventricles related to volume loss change. BONES/JOINTS: Normal calvarium. SINUSES: No acute sinusitis. MASTOID AIR CELLS: Normal. Clear. CT/Brain/Head without Contrast IMPRESSION: 1. No acute intracranial abnormality. 2. Senescent changes. Electronically Signed: Valentin Palencia MD at 12:08 EDT ,
--- NOTE | 2023-06-26 10:23 | EDS_ITS ---
HPI History of Present Illness Chief Complaint: Dizziness Detail of Chief Complaint: Dizziness Informant: patient Narrative Narrative: Patient presents with complaint of dizziness and feeling off balance for about 4 to 5 months off and on. Patient denies vertiginous symptoms. Patient also states that she has had some intermittent discomfort in her left breast that is been going on for months. At times felt short of breath. Denies fever. Does complain of urinary frequency but denies dysuria or. Denies recent travel or surgery. Patient living at assisted living currently. Patient also complains of her right ear feeling like it is plugged up and she has had decreased hearing. [facility] Medical History Ambulates with cane Anxiety Arthritis Chronic pain Depression Former smoker Headache, unspecified History of pain when walking History of steroid therapy History of stress test Hx of temporal arteritis Hypertension Osteoporosis Polymyalgia rheumatica Primary osteoarthritis Urge incontinence Vitamin D deficiency Wears dentures Wears glasses Home Medications ?Medication ?Instructions ?Recorded ?Last Taken ?Type aspirin 81 mg chewable tablet 81 mg PO BIDCM heart health 02/25/21 Unknown History meloxicam 7.5 mg tablet 15 mg PO DAILY antiinflammatory 02/25/21 Unknown History denosumab 60 mg/mL subcutaneous 60 mg subcut [id number] #1 mL 11/21/22 Unknown Rx syringe (Prolia) Allergy/AdvReac Type Severity Reaction Status Date / Time alendronate sodium (From Allergy Unknown unknown Verified 06/26/23 10:03 Fosamax) amoxicillin Allergy Unknown unknown Verified 06/26/23 10:03 Family History Father DVT (deep venous thrombosis) Brother Heart disease Son Heart disease Surgical History History of appendectomy History of appendectomy History of arthroplasty of left knee Hx of colonoscopy Hx of shoulder surgery Hx of shoulder surgery Hx of total knee arthroplasty Status post total right knee replacement Social History household members: none Smoking Status: Never smoker alcohol intake: never substance use type: does not use ROS ROS ED Review of Systems ROS Unobtainable: other Constitutional Constitutional ED: Reports lethargy; Denies chills, fever(s), sweats or weight loss Eyes Eyes: Denies blurry vision, change in vision or diplopia ENT ENT ED: Denies rhinorrhea or sore throat Cardiovascular Cardiovascular: Denies chest pain, orthopnea or racing heartbeat Respiratory/Chest Respiratory/Chest: Reports dyspnea and dyspnea on exertion; Denies cough, orthopnea or sputum Gastrointestinal Gastrointestinal: Denies abdominal pain, diarrhea, nausea or vomiting Genitourinary Genitourinary ED: Denies dysuria, hematuria or urinary frequency Musculoskeletal Musculoskeletal: Reports other Details: Left breast pain ; Denies arthralgias, back pain, myalgias or neck pain Integumentary Denies abscess, Abrasions or rash Neurologic Neurologic: Reports other Details: Dizziness ; Denies headache(s) or weakness Psychiatric Psychiatric: Denies anxiety, depression or suicidal thoughts Endocrine Endocrinology: Denies polydipsia, polyphagia or polyuria Hematologic/Lymphatic Hematologic/Lymphatic: Denies easy bleeding, easy bruising or lymphadenopathy Allergic/Immunologic Allergic/Immunologic ED: Denies mouth swelling, tongue swelling or urticaria EXAM Physical Exam Const Vital Signs: 06/26/23 10:03 06/26/23 10:04 06/26/23 11:03 Temperature 95.9 F L Temperature Source Temporal Pulse Rate 90 Pulse Rate [Lying] 78 Pulse Rate [Sitting (for 1 minute prior to obtaining)] 72 Respiratory Rate 16 Respiratory Effort Normal Respiratory Pattern Normal Blood Pressure 158/79 H Blood Pressure [Lying] 142/79 H Blood Pressure [Sitting (for 1 minute prior to obtaining)] 157/64 H Blood Pressure [Standing (for 1 minute prior to obtaining)] 148/64 H Blood Pressure Mean 105 Blood Pressure Mean [Lying] 100 Blood Pressure Mean [Sitting (for 1 minute prior to obtaining)] 95 Blood Pressure Mean [Standing (for 1 minute prior to obtaining)] 92 Pulse Ox 97 Oxygen Delivery Method Room Air 06/26/23 12:03 Temperature Temperature Source Pulse Rate 78 Pulse Rate [Lying] Pulse Rate [Sitting (for 1 minute prior to obtaining)] Respiratory Rate 16 Respiratory Effort Respiratory Pattern Blood Pressure 166/70 H Blood Pressure [Lying] Blood Pressure [Sitting (for 1 minute prior to obtaining)] Blood Pressure [Standing (for 1 minute prior to obtaining)] Blood Pressure Mean 102 Blood Pressure Mean [Lying] Blood Pressure Mean [Sitting (for 1 minute prior to obtaining)] Blood Pressure Mean [Standing (for 1 minute prior to obtaining)] Pulse Ox 97 Oxygen Delivery Method Room Air Positive well nourished and well developed General Appearance ED: well developed and NAD HEENT Reports TM's clear and moist mucous membranes HEENT Narrative: Right ear-patient has a cerumen impaction. Unable to visualize tympanic membrane. normocephalic and atraumatic; Negative for trauma or tenderness Tympanic Membrane ED: Yes TM's clear Eyes PERRL and EOMs intact bilaterally General Eye ED: Negative for pale conjunctiva or scleral icterus Neck no lymphadenopathy, supple and no JVD General: Negative for tenderness Chest Wall inspection of chest normal and palpation of chest normal Chest: Negative for tenderness Resp normal respiratory effort and clear to auscultation bilaterally Effort and Inspection: Negative for respiratory distress or pain with movement Auscultation: Negative for rhonchi, wheezes or diminished lung sounds Cardio regular rate, regular rhythm, S1 normal heart sound, S2 normal heart sound and n o murmurs Peripheral Pulses: pulses 2+ throughout GI normal to inspection, nondistended, normoactive bowel sounds, soft to palpation, non-tender, non-distended and no masses Back/Spine no CVA tenderness and no thoracic nor lumbar tenderness Extremity normal to inspection General Extremety ED: Negative for edema General Extremity: Negative for edema Neuro oriented x3, CN's II-XII intact bilaterally, no sensory deficits noted and gait normal Sensorium / Orientation: awake, alert, oriented to person, oriented to place and oriented to time Motor Exam: strength 5/5 throughout and strength abnormal Psych mental status grossly normal Skin no rashes or lesions noted and no wounds MDM MDM MDM Narrative Medical decision making narrative: Patient presents with complaint of feeling off balance at times for several mon ths. She has a right ear that is occluded with cerumen. She has been having some intermittent headaches. I will establish. EKG obtained arrival shows sinus rhythm with ventricular rate of 88 bpm with frequent PVCs. CBC with differential count of 4.8 with hemoglobin 12.2 and platelet count of 204. Chemistries unremarkable. Troponin normal at 41. Patient had irrigation of both ears and a large cerumen plugs removed and a I am currently able to visualize her TMs and they appear normal. Orthostatic vital signs performed were negative. CT scan of the brain without contrast was unremarkable. Chest x-ray unremarkable. Urinalysis was normal. At this point etiology of her dizziness unclear although I suspect some of the balance issue may be related to possible cerumen impaction. Recommend she follow-up with her primary care physician within next 5 to 7 days. She actually has an appointment scheduled in 1 week. Prior to discharge patient again continued complaint of feeling woozy and unsteady. She does not feel comfortable going home. Patient case will be discussed with hospitalist to evaluate patient for admission for disequilibrium. Lab Data Attestation: I reviewed the patient's lab results. Labs: Laboratory Results - last 24 hr 06/26/23 06/26/23 10:30 11:24 WBC 4.8 RBC 3.61 L Hgb 12.2 Hct 37.1 MCV 102.8 H MCH 33.8 H MCHC 32.9 RDW Std Deviation 53.8 H RDW Coeff of Salo 14.0 Plt Count 204 MPV 9.6 Immature Gran % (Auto) 0.000 Neut % (Auto) 62.8 Lymph % (Auto) 26.9 [place] % (Auto) 9.5 Eos % (Auto) 0.6 Baso % (Auto) 0.2 Absolute Neuts (auto) 3.0 Absolute Lymphs (auto) 1.28 Nucleated RBC % 0 Sodium 139 Potassium 3.8 Chloride 107 Carbon Dioxide 22.0 Anion Gap 10 BUN 15 Creatinine 0.82 Est GFR (MDRD) Af Amer 84 Est GFR (MDRD) Non-Af 70 BUN/Creatinine Ratio 18.3 Glucose 125 H Calcium 8.9 Troponin I High Sens 41 Urine Color Straw Urine Clarity Clear Urine pH 6.0 Ur Specific [place] 1.010 Urine Protein Negative Urine Glucose (UA) Normal Urine Ketones Negative Urine Occult Blood 10 H Urine Nitrite Negative Urine Bilirubin Negative Urine Urobilinogen Normal Ur Leukocyte Esterase 500 H Urine RBC 0 SEEN Urine WBC 0-5 SEEN Ur Squamous Epith Cells 0 SEEN Urine Bacteria 0 SEEN Urine Mucus 0 SEEN Radiography Diagnostic Testing: Clinical Impression(s) from Imaging Studies Brain CT 06/26/23 10:22 IMPRESSION: 1. No acute intracranial abnormality. 2. Senescent changes. Electronically Signed: Valentin Palencia MD at 12:08 EDT , Chest X-Ray 06/26/23 11:30 IMPRESSION: Mild cardiomegaly. No acute pulmonary abnormality. Electronically Signed: Valentin Palencia MD at 11:54 EDT , 1 view chest x-ray obtained interpreted by myself as no evidence of pneumothorax or infiltrate or acute process. Radiology in agreement felt there was mild cardiomegaly. EKG Initial EKG: Attestation: I personally reviewed and interpreted this EKG as follows: Comments: Sinus rhythm with rate of 88 bpm with PVCs and incomplete right bundle branch block Discharge Plan Triage Chief Complaint: Dizziness ED Provider: Annie Borden Dx/Rx/DC Orders Clinical Impression: Dizziness, Impacted cerumen, right ear, Disequilibrium Prescriptions: No Action meloxicam 7.5 mg tablet 15 mg PO DAILY Rx Instructions: Do not take any other nonsteroidal anti-inflammatories while using meloxicam/Mobic. aspirin 81 mg tablet,chewable 81 mg PO BIDCM Rx Instructions: Take 81 mg aspirin twice daily for 4 weeks postoperatively for DVT prophylaxis Prolia 60 mg/mL syringe 60 mg subcut [id number] Qty: 1 1RF Primary Care Provider: Quoc Landry Referrals: Quoc Landry PA [Primary Care Provider] - 5-7 Days Print Language: Mongolian Disposition Disposition: Acute Care Hospital [facility] [place] [facility]
[2023-06-26] MEDS: Carbamide Peroxide 15 ML Bottle 5 DRP OTIC (10:31)
[2023-06-26 10:40] LABS: Absolute Lymphocyte Count 1.28 X10^3/uL (0.83-4.51); Basophil# 0.01 X10^3/uL; Basophil% 0.2 % (0-1); Eosinophil# 0.03 X10^3/uL; Eosinophils% 0.6 % (0-5); Hematocrit 37.1 % (37-47); Hemoglobin 12.2 g/dL (12.0-15.0); Lymphocyte # 1.28 X10^3/ul (0.83-4.51); Lymphocyte % 26.9 % (19-41); Mean Corp Hgb Conc 32.9 g/dL (32-36); Mean Corpuscular Hgb 33.8 pg (27.0-32.0); Mean Corpuscular Volume 102.8 fL (81-99); Mean Platelet Vol. 9.6 fl (6.2-12.0); Monocyte# 0.45 X10^3/uL; Monocyte% 9.5 % (0-10); NRBC Flagged by Analyzer 0 % (0-5); Neutrophil # 2.98 X10^3/uL (2.7-7.7); Neutrophil % 62.8 % (47-70); Platelet Count 204 K/mm3 (150-450); RBC Distribution Width SD 53.8 fl (35.1-43.9); Red Blood Count 3.61 M/mm3 (4.2-5.4); White Blood Count 4.8 K/mm3 (4.4-11.0)
[2023-06-26 10:58] LABS: Anion Gap 10 (5-15); BUN 15 mg/dL (7-18); BUN/Creat Ratio 18.3 RATIO (10-20); Calcium,Total 8.9 mg/dL (8.5-10.1); Chloride 107 mmol/L (98-107); Creatinine, Serum 0.82 mg/dL (0.55-1.02); EST Glomerular Filtration Rate 70 mL/min (>60); Est Glom Filt Rate - Afr Amer 84 mL/min (>60); Glucose 125 mg/dL (74-106); Potassium 3.8 mmol/L (3.5-5.1); Sodium Level 139 mmol/L (136-145); Troponin-I HS 41 pg/mL (3.0-54.0)
[2023-06-26 11:03] VITALS: BP 142/79; BP 148/64; BP 157/64; PULSE 72; PULSE 78
[2023-06-26 11:27] LABS: Bacteria 0 SEEN /hpf (None Seen); Mucous, Urine 0 SEEN /hpf (<or=2+); Red Blood Cells-Urine 0 SEEN /hpf (0-5); Squamous Epithelial Cells - UA 0 SEEN /hpf (5-10)
--- NOTE | 2023-06-26 11:30 | RAD_ITS ---
EXAM: XR CHEST, 1 VIEW CLINICAL INDICATION: dyspnea TECHNIQUE: Frontal view of the chest. COMPARISON: No relevant prior studies available. FINDINGS: LUNGS AND PLEURAL SPACES: Normal. No consolidation or edema. No pneumothorax. No effusion. HEART: Mild cardiomegaly. MEDIASTINUM: No mediastinal or hilar mass. BONES/JOINTS: Right shoulder prosthesis in place. VASCULATURE: Ectatic and tortuous thoracic aorta. UPPER ABDOMEN: Mild elevation the right hemidiaphragm. RAD/Chest 1 View (Portable) IMPRESSION: Mild cardiomegaly. No acute pulmonary abnormality. Electronically Signed: Valentin Palencia MD at 11:54 EDT ,
[2023-06-26 11:38] LABS: Color, Urine Straw (Yellow); Glucose, Dipstick Normal (Normal); Ketone-Dipstick Negative (Negative); Leukocyte Esterase-Dipstick 500 /ul (Negative); Nitrite-Dipstick Negative (Negative); Occult Blood-Urine 10 /ul (Negative); Protein-Dipstick Negative (Negative); Urine Bilirubin Dipstick Negative (Negative); Urine Clarity Clear (Clear); Urine Urobilinogen Normal (Normal)
[2023-06-26 11:50] LABS: White Blood Cells 0-5 SEEN /hpf (0-5)
[2023-06-26 12:03] VITALS: BP 166/70; PULSE 78; RESP 16; O2SAT 97
--- NOTE | 2023-06-26 12:38 | ED.RN ---
WENT TO D/C PT. I FEEL LIGHT HEADED, I JUST GET SO MAD AT MYSELF WHEN I DO THIS. DR VALENCIA AWARE AND WILL RE-EVALUATE>
--- NOTE | 2023-06-26 12:41 | ED.RN ---
WENT TO D/C PT, PT STATES I FEEL LIGHTHEADED, I GET SO MAD AT MYSELF WHEN I DO THIS. DR. VALENCIA AWARE AND WILL RE-EVALUATE.
--- NOTE | 2023-06-26 13:56 | NURSING ---
MED SURG OBS KORAM DIZZINESS, DISEQUILIBRIUM
[2023-06-26 14:00] VITALS: BP 159/78; PULSE 79; RESP 16; TEMP 36.4; O2SAT 99
--- NOTE | 2023-06-26 14:39 | PCM.HP.STD ---
HPI - General General Date of Admission: 06/26/23 Date of Service: 06/26/23 Chief Complaint: dizziness HPI Narrative MACIE WALLS, is a 88 F with a PMH as outlined who presents via the ED from her assisted living facility with a complaint of dizziness which had been going on for 3 months and subsequently worsened over the last few days. She said dizziness was episodic, with no aggravating or relieving factors. She had no noticed that it worsened with movement of her head. She denied any fever, headache, blurred vision or any numbness or tingling or any focal weakness. She came into the ED today because she felt like his symptoms had worsened. She also felt like she was congested and felt like her right ear was plugged up. She said there had been a bug like the flu going around the assisted living facility. Review of systems otherwise negative. In the ED she had her right ear irrigated and had a large impacted cerumen plug removed. Plan was to discharge her back to her assisted living facility afterwards but patient says she still felt dizzy. She also developed diarrhea. Vitals in the ED showed temperature of 98.1 Fahrenheit with pulse rate of 63, blood pressure of 155/64 respiratory rate of 16. She was saturating at 95% on room air. CBC and BMP were unremarkable urinalysis showed no evidence of UTI. Initial troponin was also negative. CT of the brain showed no acute intracranial pathology and chest x-ray showed mild cardiomegaly with no acute cardiopulmonary pathology. She is being admitted to be managed for dizziness. [facility] Medical History Ambulates with cane Anxiety Arthritis Chronic pain Depression Former smoker Headache, unspecified History of pain when walking History of steroid therapy History of stress test Hx of temporal arteritis Hypertension Osteoporosis Polymyalgia rheumatica Primary osteoarthritis Urge incontinence Vitamin D deficiency Wears dentures Wears glasses Home Medications ?Medication ?Instructions ?Recorded ?Last Taken ?Type acetaminophen 650 mg 650 mg PO Q8H PRN pain 06/26/23 06/26/23 History tablet,extended release (8 Hour Pain Reliever) cholecalciferol (vitamin D3) 50 mcg PO DAILY 06/26/23 06/26/23 History multivitamin 1 tab PO DAILY 06/26/23 Unknown History Allergy/AdvReac Type Severity Reaction Status Date / Time alendronate sodium (From Allergy Unknown unknown Verified 06/26/23 10:03 Fosamax) amoxicillin Allergy Unknown unknown Verified 06/26/23 10:03 Family History Father DVT (deep venous thrombosis) Brother Heart disease Son Heart disease Surgical History History of appendectomy History of appendectomy History of arthroplasty of left knee Hx of colonoscopy Hx of shoulder surgery Hx of shoulder surgery Hx of total knee arthroplasty Status post total right knee replacement Social History (Updated 06/26/23 @ 15:27 by Rufina Hernandez) household members: none Smoking Status: Never smoker alcohol intake: never substance use type: does not use ROS Review of Systems ROS Unobtainable: Denies due to encephalopathy Constitutional Constitutional: Denies anorexia, chills, fatigue, fever(s), malaise or weakness Eyes Eyes: Denies change in vision ENT HEENT: Denies abnormal hearing, dysphagia, headache(s) or hearing loss Cardiovascular Cardiovascular: Denies chest pain, dyspnea on exertion, edema, lightheadedness, orthopnea, palpitations, paroxysmal nocturnal dyspnea, rapid heart rate or syncope Respiratory/Chest Respiratory/Chest: Denies cough, dyspnea, productive cough, shortness of breath at rest, shortness of breath with exertion or wheezing Gastrointestinal Gastrointestinal: Denies nausea or vomiting Genitourinary Genitourinary: Denies burning urination Neurologic Neurologic: Reports dizziness; Denies confusion, disequilibrium, focal weakness, headache(s), numbness, paresthesias, seizure-like activity, seizures, syncope or tingling Psychiatric Psychiatric: Denies anxiety or depression Endocrine Endocrinology: Denies change in body appearance Vital Signs Vital Signs Vital Signs: 06/26/23 10:03 06/26/23 10:04 06/26/23 11:03 Temperature 95.9 F L Temperature Source Temporal Pulse Rate 90 Pulse Rate [Lying] 78 Pulse Rate [Sitting (for 1 minute prior to obtaining)] 72 Respiratory Rate 16 Respiratory Effort Normal Respiratory Pattern Normal Blood Pressure 158/79 H Blood Pressure [Lying] 142/79 H Blood Pressure [Sitting (for 1 minute prior to obtaining)] 157/64 H Blood Pressure [Standing (for 1 minute prior to obtaining)] 148/64 H Blood Pressure Mean 105 Blood Pressure Mean [Lying] 100 Blood Pressure Mean [Sitting (for 1 minute prior to obtaining)] 95 Blood Pressure Mean [Standing (for 1 minute prior to obtaining)] 92 Pulse Ox 97 Oxygen Delivery Method Room Air 06/26/23 12:03 06/26/23 14:00 Temperature 97.6 F L Temperature Source Pulse Rate 78 79 Pulse Rate [Lying] Pulse Rate [Sitting (for 1 minute prior to obtaining)] Respiratory Rate 16 16 Respiratory Effort Respiratory Pattern Blood Pressure 166/70 H 159/78 H Blood Pressure [Lying] Blood Pressure [Sitting (for 1 minute prior to obtaining)] Blood Pressure [Standing (for 1 minute prior to obtaining)] Blood Pressure Mean 102 105 Blood Pressure Mean [Lying] Blood Pressure Mean [Sitting (for 1 minute prior to obtaining)] Blood Pressure Mean [Standing (for 1 minute prior to obtaining)] Pulse Ox 97 99 Oxygen Delivery Method Room Air Physical Exam Const alert, oriented x3 and no apparent distress General Appearance: cooperative HEENT normocephalic, head/scalp atraumatic, hearing grossly normal bilaterally, moist oral mucous membranes and oropharynx normal Mouth: oral and palatal mucosa normal Eyes PERRL, EOMs intact bilaterally and conjunctivae normal Neck no lymphadenopathy and supple Resp normal respiratory effort, no retractions, no use of accessory muscles and clear to auscultation bilaterally Cardio regular rate, regular rhythm, S1 normal heart sound, S2 normal heart sound and no murmurs GI normal to inspection, nondistended, normoactive bowel sounds, soft to palpation, non-tender and non-distended Extremity normal to inspection, full ROM and no clubbing, cyanosis or edema Neuro oriented x3, CN's II-XII intact bilaterally, moves all extremities and no focal motor deficits Sensorium / Orientation: awake, alert, oriented to person, oriented to place and oriented to time Motor Exam: strength 5/5 throughout Psych affect normal Results Lab / Micro Data 06/26/23 10:30 06/26/23 10:30 Labs: Laboratory Results - last 24 hr 06/26/23 10:30: WBC 4.8, RBC 3.61 L, Hgb 12.2, Hct 37.1, MCV 102.8 H, MCH 33.8 H, MCHC 32.9, RDW Std Deviation 53.8 H, RDW Coeff of Salo 14.0, Plt Count 204, MPV 9.6, Immature Gran % (Auto) 0.000, Neut % (Auto) 62.8, Lymph % (Auto) 26.9, [place] % (Auto) 9.5, Eos % (Auto) 0.6, Baso % (Auto) 0.2, Absolute Neuts (auto) 3.0, Absolute Lymphs (auto) 1.28, Nucleated RBC % 0, Sodium 139, Potassium 3.8, Chloride 107, Carbon Dioxide 22.0, Anion Gap 10, BUN 15, Creatinine 0.82, Est GFR (MDRD) Af Amer 84, Est GFR (MDRD) Non-Af 70, BUN/Creatinine Ratio 18.3, Glucose 125 H, Calcium 8.9, Troponin I High Sens 41 06/26/23 11:24: Urine Color Straw, Urine Clarity Clear, Urine pH 6.0, Ur Specific [place] 1.010, Urine Protein Negative, Urine Glucose (UA) Normal, Urine Ketones Negative, Urine Occult Blood 10 H, Urine Nitrite Negative, Urine Bilirubin Negative, Urine Urobilinogen Normal, Ur Leukocyte Esterase 500 H, Urine RBC 0 SEEN, Urine WBC 0-5 SEEN, Ur Squamous Epith Cells 0 SEEN, Urine Bacteria 0 SEEN, Urine Mucus 0 SEEN Imaging Radiology Impression Brain CT 06/26/23 10:22 IMPRESSION: 1. No acute intracranial abnormality. 2. Senescent changes. Electronically Signed: Valentin Palencia MD at 12:08 EDT , Chest X-Ray 06/26/23 11:30 IMPRESSION: Mild cardiomegaly. No acute pulmonary abnormality. Electronically Signed: Valentin Palencia MD at 11:54 EDT , Assessment & Plan Assessment/Plan (1) Disequilibrium: (2) Dizziness: PLAN: Plan #Dizziness etiology is unclear, but I suspect patient may have BPPV; dizziness has been going on for about 4 to 5 months. She states that has been a bug going around her assisted living and she developed diarrhea today when she came into the ED. She also had cerumen impaction which could also be contributing to the dizziness. Stroke is lower on my list of differentials simply because her symptoms have been going on for about 4 to 5 months as stated. She did have chronic microvascular changes in the cerebral hemispheres on her CAT scan so it may be reasonable to do a CTA of the head and neck to evaluate for any vascular insufficiency which could be causing such dizziness also. Consult PT OT as patient will benefit from vestibular therapy. Started on meclizine. I did discuss with patient about an MRI and explained to her that a stroke was low on my list of differentials. I discussed with her whether she would want to have an MRI now as I wanted it to be a shared decision making process in light of a stroke being low on the list of differentials because her symptoms have been going on for about 4 to 5 months. Patient stated that she wanted to wait to see how she did before deciding on whether she wanted an MRI. consult PT.T fall precautions. hydrate gently with iVF #Cerumen impaction: had her right ear irrigated today with removal of a cerumen plug. DVT prophylaxis: lovenox Code status: full code Patient counseled extensively about different types of CODE STATUS including full code, DNR CCA and DNR CCA. Patient elects to be full code. Total [id number] time 17 minutes. Charges/Coding Visit Charges Inpatient E&M: 33376 Init Hosp L2 Procedures Hospitalists Procedures: 74386 Advncd Care Plan 30 Min
[2023-06-26 15:13] VITALS: BMI 28.8
[2023-06-26 15:32] VITALS: BP 155/64; PULSE 63; RESP 16; TEMP 36.7; O2SAT 95
[2023-06-26] MEDS: 0.9% Normal Saline (1000mL) 1,000 ML 125 ML IV (17:50)
--- NOTE | 2023-06-26 17:52 | CT_ITS ---
STUDY: CTA HEAD AND NECK WITH CONTRAST REASON FOR EXAM: Female, 88 years old. dizziness RADIATION DOSAGE (If Supplied By Facility): CTDIvol = ( 19.17 ) mGy, DLP = ( 465.59 ) mGycm TECHNIQUE: CT angiography was performed with a multi-detector CT scanner. Data acquisition was obtained from the skull base through the vertex following intravenous administration of IV 100mL Isovue-370. MIP images were reconstructed from the axial data set. Post-processing of the angiographic images was performed, with multiplanar reformation and 3D reconstruction. Individualized dose optimization techniques were used for this CT. COMPARISON: No relevant priors. FINDINGS: Normal bilateral petrous carotid arteries. Normal right cavernous carotid artery with a normal supraclinoid bifurcation. Normal left cavernous carotid artery with a normal supraclinoid bifurcation. Normal right A1 segments of the anterior cerebral artery. Normal left A1 segments of the anterior cerebral artery. Normal intact anterior communicating artery (ACOM). Normal bilateral A2 segments of the anterior cerebral arteries. Normal right M1 and M2 segments of the middle cerebral arteries, with a normal M1 bifurcation. Normal left M1 and M2 segments of the middle cerebral arteries, with a normal M1 bifurcation. Normal right posterior communicating artery (PCOM). Normal left posterior communicating artery (PCOM). Normal bilateral vertebral arteries. Normal basilar artery with a normal basilar bifurcation. The visualized bilateral superior cerebellar (SCA) arteries are normal. Normal bilateral P1, P2 and visualized P3 segments of the posterior cerebral arteries. There is no demonstrated aneurysm of the unga of [place]. There is no demonstrated abnormality of the visualized brain. AORTIC ARCH: There is atherosclerotic calcific plaque formation of the aortic arch and great vessels arising from the aortic arch, without a hemodynamically significant stenosis. There is a normal origin of the brachiocephalic, left common carotid, and left subclavian arteries. RIGHT CAROTID ARTERIES: Normal right common carotid artery (CCA). There is mild atherosclerotic plaque formation with minimal narrowing of the right carotid bulb. There is mild atherosclerotic plaque formation of the origin of the right internal carotid artery with less than 50% cross sectional diameter stenosis. There is atherosclerotic tortuous elongation of the cervical portion of the right internal carotid artery. Normal origin of the right external carotid artery (ECA). LEFT CAROTID ARTERIES: Normal left common carotid artery (CCA). There is mild atherosclerotic plaque formation with minimal narrowing of the left carotid bulb. There is mild atherosclerotic plaque formation of the origin of the left internal carotid artery with less than 50% cross sectional diameter stenosis. There is atherosclerotic tortuous elongation of the cervical portion of the left internal carotid artery. Normal origin of the left external carotid artery (ECA). VERTEBRAL ARTERIES: Normal bilateral vertebral arteries. CT/CTA Head AND Neck W/ Contrast IMPRESSION: Unremarkable for age. No acute abnormalities. No occlusions. No hemodynamically significant stenosis. Electronically Signed: Timothy Elena MD at 19:10 EDT ,
[2023-06-26 21:34] VITALS: BP 144/53; PULSE 79; RESP 16; TEMP 36.4; O2SAT 95
[2023-06-26] MEDS: Acetaminophen 325 MG Tablet 650 MG PO (21:39)
[2023-06-27] MEDS: 0.9% Normal Saline (1000mL) 1,000 ML 125 ML IV (01:52)
[2023-06-27] MEDS: 0.9% Saline Lock 10 ML Syringe IV (02:25)
[2023-06-27] MEDS: Ondansetron 4 MG/2 ML Vial IV (02:25)
[2023-06-27 02:37] VITALS: BP 130/93; PULSE 58; RESP 16; TEMP 36.3; O2SAT 96
[2023-06-27 07:12] LABS: Absolute Lymphocyte Count 1.38 X10^3/uL (0.83-4.51); Absolute Neutrophil Count 2.3 X10^3/uL (2.0-7.7); Basophil# 0.02 X10^3/uL; Basophil% 0.5 % (0-1); Eosinophil# 0.05 X10^3/uL; Eosinophils% 1.2 % (0-5); Hematocrit 36.3 % (37-47); Hemoglobin 11.8 g/dL (12.0-15.0); Lymphocyte # 1.38 X10^3/ul (0.83-4.51); Lymphocyte % 33.1 % (19-41); Mean Corp Hgb Conc 32.5 g/dL (32-36); Mean Corpuscular Hgb 33.6 pg (27.0-32.0); Mean Corpuscular Volume 103.4 fL (81-99); Mean Platelet Vol. 9.8 fl (6.2-12.0); Monocyte# 0.42 X10^3/uL; Monocyte% 10.1 % (0-10); NRBC Flagged by Analyzer 0 % (0-5); Neutrophil % 55.1 % (47-70); Platelet Count 195 K/mm3 (150-450); RBC Distribution Width CV 14.6 % (11.6-14.6); RBC Distribution Width SD 54.6 fl (35.1-43.9); Red Blood Count 3.51 M/mm3 (4.2-5.4); White Blood Count 4.2 K/mm3 (4.4-11.0)
[2023-06-27 07:45] LABS: Anion Gap 5 (5-15); BUN 13 mg/dL (7-18); BUN/Creat Ratio 20.9 RATIO (10-20); Calcium,Total 8.7 mg/dL (8.5-10.1); Chloride 111 mmol/L (98-107); Creatinine, Serum 0.62 mg/dL (0.55-1.02); EST Glomerular Filtration Rate 96 mL/min (>60); Est Glom Filt Rate - Afr Amer 116 mL/min (>60); Estimated Creatinine Clearance 40.75 ml/min; Glucose 97 mg/dL (74-106); Potassium 3.8 mmol/L (3.5-5.1); Sodium Level 140 mmol/L (136-145)
[2023-06-27 08:06] VITALS: BP 133/51; PULSE 73; RESP 18; TEMP 36.5; O2SAT 95
[2023-06-27] MEDS: Enoxaparin 40 MG/0.4 ML Syringe SC (08:08)
[2023-06-27] MEDS: Cholecalciferol (VIT D3) 25 MCG TABLET (1,000 UNITS) 50 MCG PO (08:09)
[2023-06-27] MEDS: Multivitamins,Therapeutic Tablet 1 TABLET PO (08:09)
[2023-06-27] MEDS: Acetaminophen 325 MG Tablet 650 MG PO (08:11)
--- NOTE | 2023-06-27 09:37 | CASEMGMT ---
Addendum entered by Janeth Mejia 06/27/23 10:23: Social Work Pt's nurse Maite called asking when pt is going to be discharged as they plan to pick pt up. ARUNA explained we will call just as soon as we know. ARUNA will continue to follow. ARTHUR Sales Addendum entered by Janeth Mejia 06/27/23 10:18: Social Work Kaci Tarango from [facility] called asking for updates, SW let her know already spoke w/ROBERTO Tinsley and updates sent. Kaci call back is [phone]. ARTHUR Sales Original Note: Social Work Pt here from [facility]. SW spoke w/pt, she states her plan is to return when ready for discharge. Her sons may not be able to pick her up today, she did say [facility] had told her they can come pick her up when ready for discharge. ARUNA called [facility], spoke w/Alvina, the integrated logistics operations manager. She states she anticipates pt being able to return at discharge, would prefer SW fax updates to [facility]. ARUNA faxed H&P, there is no PT/OT just yet. ARUNA will continue to follow for discharge back to [facility] when appropriate. ARTHUR Sales
--- NOTE | 2023-06-27 10:35 | MRI_ITS ---
STUDY: MRI BRAIN WITHOUT CONTRAST REASON FOR EXAM: Female, 88 years old. VERTIGO TECHNIQUE: Standardized multiplanar fat and water weighted pulse sequences were obtained. COMPARISON: Head CT dated June 26, 2023 FINDINGS: There is mild cerebral atrophy with widening of the extra-axial spaces and ventricular dilatation. There are multiple white matter hyperintensities, distributed throughout the deep white matter tracts of the cerebral hemispheres, consistent with moderate chronic white matter ischemic changes. There is no evidence for recent intracranial ischemia or other cause of cytotoxic edema on diffusion weighted imaging (DWI). Normal T2* images of the brain without demonstrated susceptibility artifact. There is no demonstrated hemosiderin stain. Tiny 6.9 mm extra-axial benign meningioma is present at the anterior superior aspect of the right frontal lobe see image #20/ series 5. This is of no clinical significance. Normal bilateral basal ganglia. Normal thalami. There is no extra-axial fluid accumulation. Normal flow voids within the major intracranial circulation suggesting patency by spin echo criteria. Normal sella turcica, pituitary gland, infundibular stalk, optic chiasm and hypothalamus. Normal tectal plate and pineal gland. Normal midbrain, neha and medulla. Normal cerebellum. Normal basal cisterns. Normal bilateral temporal bones. Normal bilateral internal auditory canals. No demonstrated orbital abnormality, within the constraints of a routine brain study. Normal visualized paranasal sinuses. Normal calvarium and skull base. Normal visualized soft tissue structures. Normal visualized upper cervical spine. MRI/Brain without Contrast IMPRESSION: 1. Involutional and chronic ischemic changes of the brain, as described above. 2. No acute infarct or intracranial hemorrhage 3. Tiny 6.9 mm extra-axial benign meningioma is present at the anterior superior aspect of the right frontal lobe see image #20/24 series 5. This is of no clinical significance. Electronically Signed: Evan Pickard MD at 14:00 EDT ,
--- NOTE | 2023-06-27 10:36 | PN.HOSP_ITS ---
Reason for Visit Reason for Visit: Diagnoses Dizziness and giddiness (06/26/23) Objective Data Objective Data Vital Signs: Vital Signs Temp Pulse Resp BP Pulse Ox O2 Del Method 97.7 F L 73 18 133/51 H 95 Room Air 06/27/23 08:06 06/27/23 08:06 06/27/23 08:06 06/27/23 08:06 06/27/23 08:06 06/27/23 08:16 Oxygen Delivery Method Room Air Weight: 67.1 kg Body Mass Index (BMI) 28.8 Intake & Output: Intake and Output for Last 24 Hours 06/25/23 06/26/23 06/27/23 23:59 23:59 23:59 Intake Total 480 / 480 1999 Balance 480 / 480 1999 Lab / Micro Data 06/27/23 06:25 06/27/23 06:25 Labs: Laboratory Results - last 24 hr 06/26/23 10:30: WBC 4.8, RBC 3.61 L, Hgb 12.2, Hct 37.1, MCV 102.8 H, MCH 33.8 H , MCHC 32.9, RDW Std Deviation 53.8 H, RDW Coeff of [place] 14.0, Plt Count 204, MPV 9.6, Immature Gran % (Auto) 0.000, Neut % (Auto) 62.8, Lymph % (Auto) 26.9, [place] % (Auto) 9.5, Eos % (Auto) 0.6, Baso % (Auto) 0.2, Absolute Neuts (auto) 3.0, Absolute Lymphs (auto) 1.28, Nucleated RBC % 0, Sodium 139, Potassium 3.8, Chloride 107, Carbon Dioxide 22.0, Anion Gap 10, BUN 15, Creatinine 0.82, Est GFR (MDRD) Af Amer 84, Est GFR (MDRD) Non-Af 70, BUN/Creatinine Ratio 18.3, G lucose 125 H, Calcium 8.9, Troponin I High Sens 41 06/26/23 11:24: Urine Color Straw, Urine Clarity Clear, Urine pH 6.0, Ur Specific [place] 1.010, Urine Protein Negative, Urine Glucose (UA) Normal, Urine Ketones Negative, Urine Occult Blood 10 H, Urine Nitrite Negative, Urine Bilirubin Negative, Urine Urobilinogen Normal, Ur Leukocyte Esterase 500 H, Urine RBC 0 SEEN, Urine WBC 0-5 SEEN, Ur Squamous Epith Cells 0 SEEN, Urine Bacteria 0 SEEN, Urine Mucus 0 SEEN 06/27/23 06:25: WBC 4.2 L, RBC 3.51 L, Hgb 11.8 L, Hct 36.3 L, MCV 103.4 H, MCH 33.6 H, MCHC 32.5, RDW Std Deviation 54.6 H, RDW Coeff of [place] 14.6, Plt Count 195, MPV 9.8, Immature Gran % (Auto) 0.000, Neut % (Auto) 55.1, Lymph % (Auto) 33.1, [place] % (Auto) 10.1 H, Eos % (Auto) 1.2, Baso % (Auto) 0.5, Absolute Neuts (auto) 2.3, Absolute Lymphs (auto) 1.38, Nucleated RBC % 0, Sodium 140, Potassium 3.8, Chloride 111 H, Carbon Dioxide 24.0, Anion Gap 5, BUN 13, Creatinine 0.62, Estim Creat Clear Calc 40.75, Est GFR (MDRD) Af Amer 116, Est GFR (MDRD) Non-Af 96, BUN/Creatinine Ratio 20.9 H, Glucose 97, Calcium 8.7 Radiography Diagnostic Testing: Radiology Impression Brain CT 06/26/23 10:22 IMPRESSION: 1. No acute intracranial abnormality. 2. Senescent changes. Electronically Signed: Valentin Palencia MD at 12:08 EDT , Chest X-Ray 06/26/23 11:30 IMPRESSION: Mild cardiomegaly. No acute pulmonary abnormality. Electronically Signed: Valentin Palencia MD at 11:54 EDT , Head/Neck CTA 06/26/23 17:52 IMPRESSION: Unremarkable for age. No acute abnormalities. No occlusions. No hemodynamically significant stenosis. Electronically Signed: Timothy Elena MD at 19:10 EDT , Physical Exam Narrative GENERAL: cooperative HEENT: Atraumatic; normocephalic EYES; Anicteric, Normal Conjunctiva NECK; supple, normal thyroid, RESPIRATORY: Diminished to auscultation CARDIOVASCULAR: Regular S1 S2, GI: soft, normoactive bowel sounds, : No Renal angle tenderness; EXTREMITIES: No edema, no clubbing, MUSCULOSKELETAL: no muscle wasting NEURO: Awake; no lateralizing signs. SKIN: No Rash PSYCH; Flat affect Assessment & Plan Assessment/Plan (1) Disequilibrium: (2) Dizziness: PLAN: Plan #Dizziness * etiology is unclear, but I suspect patient may have BPPV; dizziness has been going on for about 4 to 5 months. She states that has been a bug going around her assisted living and she developed diarrhea today when she came into the ED. She also had cerumen impaction which could also be contributing to the dizziness. * Stroke is lower on my list of differentials simply because her symptoms have been going on for about 4 to 5 months as stated. She did have chronic microvascular changes in the cerebral hemispheres on her CAT scan so it may be reasonable to do a CTA of the head and neck to evaluate for any vascular insufficiency which could be causing such dizziness also. * Consult PT OT as patient will benefit from vestibular therapy. Started on meclizine. * I did discuss with patient about an MRI and explained to her that a stroke was low on my list of differentials. I discussed with her whether she would want to have an MRI now as I wanted it to be a shared decision making process in light of a stroke being low on the list of differentials because her symptoms have been going on for about 4 to 5 months. Patient stated that she wanted to wait to see how she did before deciding on whether she wanted an MRI. * consult PT.T * fall precautions. * hydrate gently with iVF * #Cerumen impaction: had her right ear irrigated today with removal of a cerumen plug. DVT prophylaxis: lovenox Code status: full code * Patient counseled extensively about different types of CODE STATUS including full code, DNR CCA and DNR CCA. Patient elects to be full code. * Total [id number] time 17 minutes.
[2023-06-27 14:05] VITALS: BP 106/78; PULSE 72; RESP 18; TEMP 36.7; O2SAT 99
--- NOTE | 2023-06-27 14:17 | CASEMGMT ---
Met with patient to complete BETTENCOURT form. BETTENCOURT form explained to patient who voiced understanding and signed form. Original form placed in pt?s chart and copy provided to?patient. Ana Cristina Salvador, Discharge Planning Asst
--- NOTE | 2023-06-27 14:34 | NURSING ---
Gave report to Princess ZULETA
--- NOTE | 2023-06-27 14:36 | DS.PCM_ITS ---
Providers Date of Admission: 06/26/23 Date of Discharge: 06/27/23 Primary Care Physician: CORNELIUS Alba Reason For Visit: DIZZINESS Diagnosis Discharge Diagnosis (1) Disequilibrium: Status: Acute Code(s): R42 - Dizziness and giddiness (2) Dizziness: Status: Acute Code(s): R42 - Dizziness and giddiness Plan Patient is an 88-year-old lady who was admitted with acute vertigo 1. Acute vertigo ? Suspected to be secondary to BPPV. Patient placed on a monitored bed subsequent imaging studies with MRI came back unremarkable for acute CVA patient was found to have a Tiny 6.9 mm extra-axial benign meningioma is present at the anterior superior aspect of the right frontal lobe of no clinical significance. Patient did receive physical/vestibular therapy discharged back to her assisted living facility with therapy as outpatient 2. Cerumen impaction ? Had her right ear irrigated today with removal of a cerumen plug. 3. DVT prophylaxis ? On enoxaparin Medications at Discharge Home Medications acetaminophen 650 mg tablet,extended release (8 Hour Pain Reliever) 650 mg PO Q8H PRN pain 06/26/23 cholecalciferol (vitamin D3) 50 mcg PO DAILY 06/26/23 multivitamin 1 tab PO DAILY 06/26/23 Hospital Course Summary of Care Provided Minutes Spent on Discharge: 32 Physical Exam Narrative GENERAL: cooperative HEENT: Atraumatic; normocephalic EYES; Anicteric, Normal Conjunctiva NECK; supple, normal thyroid, RESPIRATORY: Diminished to auscultation CARDIOVASCULAR: Regular S1 S2, GI: soft, normoactive bowel sounds, : No Renal angle tenderness; EXTREMITIES: No edema, no clubbing, MUSCULOSKELETAL: no muscle wasting NEURO: Awake; no lateralizing signs. SKIN: No Rash PSYCH; Flat affect Weight / BMI Weight Weight: 67.1 kg Body Mass Index (BMI) 28.8 ABG / Lab / Microbiology Data 06/27/23 06:25 06/27/23 06:25 Laboratory: Laboratory Results - last 24 hr 06/27/23 06:25: WBC 4.2 L, RBC 3.51 L, Hgb 11.8 L, Hct 36.3 L, MCV 103.4 H, MCH 33.6 H, MCHC 32.5, RDW Std Deviation 54.6 H, RDW Coeff of [place] 14.6, Plt Count 195, MPV 9.8, Immature Gran % (Auto) 0.000, Neut % (Auto) 55.1, Lymph % (Auto) 33.1, [place] % (Auto) 10.1 H, Eos % (Auto) 1.2, Baso % (Auto) 0.5, Absolute Neuts (auto) 2.3, Absolute Lymphs (auto) 1.38, Nucleated RBC % 0, Sodium 140, Potassium 3.8, Chloride 111 H, Carbon Dioxide 24.0, Anion Gap 5, BUN 13, Creatinine 0.62, Estim Creat Clear Calc 40.75, Est GFR (MDRD) Af Amer 116, Est GFR (MDRD) Non-Af 96, BUN/Creatinine Ratio 20.9 H, Glucose 97, Calcium 8.7 Radiography Diagnostic Testing: Radiology Impression Head/Neck CTA 06/26/23 17:52 IMPRESSION: Unremarkable for age. No acute abnormalities. No occlusions. No hemodynamically significant stenosis. Electronically Signed: Timothy Elena MD at 19:10 EDT , Brain MRI 06/27/23 10:35 IMPRESSION: 1. Involutional and chronic ischemic changes of the brain, as described above. 2. No acute infarct or intracranial hemorrhage 3. Tiny 6.9 mm extra-axial benign meningioma is present at the anterior superior aspect of the right frontal lobe see image #20/24 series 5. This is of no clinical significance. Electronically Signed: Evan Pickard MD at 14:00 EDT , D/C Instructions Discharge Diet: No restrictions Discharge Activity: Return to Normal Activity Call your doctor if you observe: Fever of 101 or Higher, Shortness of breath, Fainting spells and Chest pain Meaningful Use Info Meaningful Use Meaningful Use Diagnoses (Choose all that apply): None applicable Ischemic Stroke Statin Dosing Therapy Reference: STATIN DOSE THERAPY REFERENCE: * Patients > 75 years receive moderate or high dose statin therapy. * Patients 75 years or YOUNGER should receive HIGH intensity statin dose unless contraindicated. You will be required to document reason for non-treatment if statin daily dose does not meet guidelines. HIGH DOSE STATIN THERAPY DAILY Atorvastatin > than or = to 40 mg Rosuvastatin > than or = to 20 mg Amlodipine + Atorvastatin > than or = to 2.5/40 mg Ezetimibe + Simvastatin 10/80 mg Simvastatin 80mg Discharge Plan Admission Admit Date/Time: 06/26/23 13:57 Attending Provider: Brennan Marroquin Primary Care Provider: Quoc Landry Consulting Providers: Yin Mccann Discharge Orders/Prescriptions Prescriptions: Continued acetaminophen [8 Hour Pain Reliever] 650 mg tablet extended release 650 mg PO Q8H PRN (Reason: pain) multivitamin Tablet 1 tab PO DAILY cholecalciferol (vitamin D3) 50 mcg PO DAILY Patient Comments: PT UNSURE OF DOSAGE Referrals / Follow Up: Quoc Landry, PA [Primary Care Provider] - 5-7 Days Disposition Disposition (needs filled in before D/C Order can be placed): Assisted Living Charges/Coding Visit Charges Inpatient E&M: 33132 Disch Hosp >30min
--- NOTE | 2023-06-27 14:54 | CASEMGMT ---
Patient is ready for discharge back to [facility] living. ARUNA called [facility] and they will pick patient up 3p at main entrance. ARUNA notified RN. ARUNA faxed patient's d/c instructions to [facility]. Plan: d/c back to [facility]. [facility] transported patient. Lissa Blake CHEMICAL BLENDER CK
--- NOTE | 2023-06-27 14:57 | CASEMGMT ---
Discharge Planning Edna cantu/[place] and patients son (Adria) updated on discharge time. Ana Cristina Salvador DC Planning Asst.
--- NOTE | 2023-06-27 15:56 | CHAPLAIN ---
Type of Pastoral Visit ___ Initial Visit ___ Follow-up Visit ___ On-call Visit ___ General Patient Visit ___ Spiritual Assessment ___ Family Conference ___ Bereavement ___ Rapid Response ___ Code Blue ___ Other (describe below) Pastoral Care Referral From ___ Patient ___ Family ___ Nurse ___ Physician ___ Director Of Graduate Medical Education ___ [employer] ___ Other (describe below) Sacrament/Intervention ___ Active listening ___ Anointing ___ Voodoo ___ Bereavement ___ Communion ___ Melly exploration ___ ___ Life review ___ Prayer ___ Reconciliation ___ Sacrament of Sick ___ Supportive presence ___ Wedding ___ Other (describe below) Pastoral Comments patient and bed were out of the room; calling card was left for her
== END 2023-06-27 14:42 | disposition home or self-care (01) ==
LOC: ED 13:40 → PCU 14:06
PROVIDERS: Admitting Provider Student in an Organized Health Care Education/Training Program; Emergency Provider Emergency Medicine; PCP Physician Assistant; Visit Provider Internal Medicine
DX: R42 Dizziness and giddiness (principal); R19.7 Diarrhea, unspecified; H61.21 Impacted cerumen, right ear; I49.3 Ventricular premature depolarization; I10 Essential (primary) hypertension; N64.4 Mastodynia; Z79.899 Other long term (current) drug therapy; Z87.891 Personal history of nicotine dependence; Z79.82 Long term (current) use of aspirin
CPT/HCPCS: 36415; 70450; 70496; 70498; 70551; 71045; 80048; 81001; 84484; 85025; 93005; 96361; 96372; 96374; 99221; 99285; J7030; Q9967; A4216; G0378; J2405

== ENCOUNTER 2023-10-25 18:17 | Emergency (ER) | payer MEDICARE, SELFPAY ==
[2023-10-25] VITALS (11 sets, daily range): BP systolic 134–186; BP diastolic 53–137; PULSE 29–33; RESP 11–18; TEMP 36.3–36.6; O2SAT 98
--- NOTE | 2023-10-25 18:27 | EKG12_ITS ---
Test Reason : DYSRHYTHMIA Blood Pressure : / mmHG Vent. Rate : 033 BPM Atrial Rate : 033 BPM P-R Int : 234 ms QRS Dur : 118 ms QT Int : 564 ms P-R-T Axes : 068 025 059 degrees QTc Int : 417 ms Critical Test Result: Low HR Sinus tachycardia 100 bpm with 3:1 AV block with PVC's Incomplete right bundle branch block Abnormal ECG Confirmed by Adria Samuel ([id number]), newspaper editor FRANKY GAN ([id number]) on 10/29/2023 2:29:37 PM Referred By: [place] Confirmed By:Adria Samuel
--- NOTE | 2023-10-25 18:27 | RAD_ITS ---
INDICATION: chest pain EXAMINATION/TECHNIQUE: X-RAY - XR Chest 1 View COMPARISON: 06/26/2023. FINDINGS: Mild central pulmonary venous congestion. Tortuous and calcified thoracic aorta. The heart is mildly enlarged. Trace bilateral pleural effusions. No pneumothorax. Degenerative changes of the thoracic spine. RAD/Chest 1 View (Portable) IMPRESSION: Mild cardiomegaly with central pulmonary venous congestion and trace bilateral pleural effusions. Electronically Signed: Robby Santiago MD at 19:33 EDT ,
--- NOTE | 2023-10-25 18:28 | EX.ED.DYSGE1 ---
HPI History of Present Illness Chief Complaint: Weakness [facility] Medical History Ambulates with cane Anxiety Arthritis Chronic pain Depression Former smoker Headache, unspecified History of pain when walking History of steroid therapy History of stress test Hx of temporal arteritis Hypertension Osteoporosis Polymyalgia rheumatica Primary osteoarthritis Urge incontinence Vitamin D deficiency Wears dentures Wears glasses Home Medications ?Medication ?Instructions ?Recorded ?Last Taken ?Type acetaminophen 650 mg 650 mg PO Q8H PRN pain 06/26/23 06/26/23 History tablet,extended release (8 Hour Pain Reliever) cholecalciferol (vitamin D3) 50 mcg PO DAILY 06/26/23 06/26/23 History multivitamin 1 tab PO DAILY 06/26/23 Unknown History Allergy/AdvReac Type Severity Reaction Status Date / Time alendronate sodium (From Allergy Unknown unknown Verified 10/25/23 18:18 Fosamax) amoxicillin Allergy Unknown unknown Verified 10/25/23 18:18 Family History Father DVT (deep venous thrombosis) Brother Heart disease Son Heart disease Surgical History History of appendectomy History of appendectomy History of arthroplasty of left knee Hx of colonoscopy Hx of shoulder surgery Hx of shoulder surgery Hx of total knee arthroplasty Status post total right knee replacement Social History (Updated 06/26/23 @ 15:27 by Rufina Hernandez) household members: none Smoking Status: Never smoker alcohol intake: never substance use type: does not use EXAM Physical Exam Const Vital Signs: 10/25/23 18:19 10/25/23 18:27 10/25/23 18:40 Temperature 97.9 F Temperature Source Temporal Pulse Rate 33 L Respiratory Rate Blood Pressure Blood Pressure Mean Pulse Ox Oxygen Delivery Method Room Air 10/25/23 19:15 10/25/23 19:23 10/25/23 19:30 Temperature Temperature Source Pulse Rate 30 L 29 L 29 L Respiratory Rate 15 14 11 L Blood Pressure 134/77 H Blood Pressure Mean 87 Pulse Ox Oxygen Delivery Method 10/25/23 19:32 10/25/23 19:45 10/25/23 19:52 Temperature Temperature Source Pulse Rate 29 L 31 L 30 L Respiratory Rate 13 11 L 17 Blood Pressure 174/89 H 147/122 H 168/53 H Blood Pressure Mean 109 132 80 Pulse Ox Oxygen Delivery Method 10/25/23 20:00 10/25/23 20:05 10/25/23 20:53 Temperature 97.4 F L Temperature Source Pulse Rate 30 L 31 L Respiratory Rate 17 18 Blood Pressure 186/137 H 159/90 H Blood Pressure Mean 154 113 Pulse Ox 98 98 Oxygen Delivery Method Room Air [facility] Narrative Medical decision making narrative: HISTORY OF PRESENT ILLNESS: 88-year-old female presents concern for weakness dizziness. Notes exertional weakness and dizziness especially with standing over the last 3 to 4 days. Denies chest pain, shortness of breath, palpitations. Denies focal weakness. Denies history of heart attack. Denies history abnormal heart rhythms. Does not take any medicine and suffer Tylenol and vitamin D. REVIEW OF SYSTEMS: Pertinent positives: Weakness, dizziness Pertinent negatives: Chest pain, shortness of breath, palpitations PHYSICAL EXAM: Nursing triage notes reviewed, Vital signs reviewed Constitutional: please see mdm HENT: MMM Eyes: Pupils equal round and reactive to light, Extraocular muscles intact Neck: No stridor, no JVD, full neck ROM Lungs: Clear to auscultation, No wheezing or rales. No increased work of breathing, no conversational dyspnea, no accessory muscle use, no nasal flaring. No respiratory distress noted Heart: Slow rate but regular, No murmurs, No rubs and No gallops, 2+ distal pulses (radial, femoral, posterior tibial) in all extremities Abdomen: Soft, there is no tenderness, rigidity, rebound or guarding, no obvious peritoneal signs, no palpable pulsatile abdominal masses, no auscultated abdominal bruit : No CVAT Extremities: No edema Neuro: No focal neurological deficits, cranial nerves II through XII intact, 5/5 strength in all extremities. Intact sensation to light touch in all extremities, 2+ reflexes bilateral patella tendons. Normal gait. No ataxia. Skin: No rash or lesions noted MEDICAL DECISION MAKING: Chief Complaint: Weakness, dizziness External records reviewed: Reviewed prior discharge summary from June 2023 Consults: Cardiology (Dr. Pinto) [facility] Narrative: Patient was initially bradycardic rate of 30, otherwise hemodynamically stable afebrile was mentating well alert with no signs of endorgan hypoperfusion. Pacer pads were placed immediately upon arrival. I considered the following differential diagnosis: Complete heart block, ACS, STEMI ALL IMAGES (IF OBTAINED) HAVE BEEN PERSONALLY REVIEWED AND INTERPRETED BY MYSELF. High-sensitivity troponin is negative, no evidence of myocardial ischemia Initial EKG with signs of complete heart block CBC with no leukocytosis, mild anemia, no thrombocytopenia BMP with hyponatremia, hyperkalemia, mild renal insufficiency BNP elevated consistent with volume overload likely secondary to bradycardia Chest x-ray with mild pulmonary edema by my read The synthesis of the patient's history, physical exam, labs images suggest likely complete heart block as a cause of patient's weakness dizziness lightheadedness. She had no signs of endorgan hypoperfusion on initial evaluation including altered neurostatus, hypoxia, hypotension. We tried atropine x 2 with no success. Given we do not have a gas station clerk to place a pacemaker. She was transferred to [facility] by her request under the care of Dr. Pinto (cardiology) for definitive care. The patient and/or family, caregivers express understanding. The patient and/or family, caregivers agrees with the plan. Shared decision making: I will have a discussion with the patient and or visitors regarding risk/benefits of further testing or admission. They will be made aware of of the risk/benefits inherent in this decision they will be given the opportunity to voice understanding. Total critical care time today provided was at least 60 minutes. This excludes separately billable procedures. Critical care time (if documented) is secondary to the patient having high probability of clinically significant/life threatening deterioration in the patient's condition which required my urgent intervention. Impression: 1. Complete heart block 2. CHF 3. Bradycardia Dispo: Transfer This note was generated with [employer] dictation software. It may contain incorrect words, spelling, and punctuation that were not noted in review of the chart prior to signing. Lab Data Labs: Laboratory Results - last 24 hr 10/25/23 18:44 WBC 8.5 RBC 3.53 L Hgb 11.9 L Hct 36.2 L MCV 102.5 H MCH 33.7 H MCHC 32.9 RDW Std Deviation 51.2 H RDW Coeff of Salo 13.6 Plt Count 214 MPV 10.7 Immature Gran % (Auto) 0.500 Neut % (Auto) 70.5 H Lymph % (Auto) 18.7 L [place] % (Auto) 9.7 Eos % (Auto) 0.4 Baso % (Auto) 0.2 Absolute Neuts (auto) 6.0 Absolute Lymphs (auto) 1.58 Nucleated RBC % 0 Sodium 128 L Potassium 5.2 H Chloride 97 L Carbon Dioxide 21.0 Anion Gap 10 BUN 32 H Creatinine 1.28 H Est GFR (MDRD) Af Amer 50 L Est GFR (MDRD) Non-Af 42 L BUN/Creatinine Ratio 25.0 H Glucose 121 H Calcium 9.8 Magnesium 2.0 Troponin I High Sens 47 B-Natriuretic Peptide 1081.7 H Radiography Diagnostic Testing: Clinical Impression(s) from Imaging Studies Chest X-Ray 10/25/23 18:27 IMPRESSION: Mild cardiomegaly with central pulmonary venous congestion and trace bilateral pleural effusions. Electronically Signed: Robby Santiago MD at 19:33 EDT , Discharge Plan Triage Chief Complaint: Weakness ED Provider: Pop Massey Dx/Rx/DC Orders Prescriptions: No Action acetaminophen [8 Hour Pain Reliever] 650 mg tablet extended release 650 mg PO Q8H PRN (Reason: pain) multivitamin Tablet 1 tab PO DAILY cholecalciferol (vitamin D3) 50 mcg PO DAILY Patient Comments: PT UNSURE OF DOSAGE Primary Care Provider: Quoc Landry Referrals: Quoc Landry PA [Primary Care Provider] - Print Language: Ethiopian Disposition Disposition: Acute Care Hospital Discharge Location: [facility] Discharge Date/Time: 10/25/23 21:01
[2023-10-25] MEDS: Atropine Sulfate 1 MG/10 ML Syringe 0.5 MG IV (18:36)
[2023-10-25] MEDS: 0.9% Normal Saline (500mL Bag) 500 ML 999 ML IV (18:36)
[2023-10-25 18:51] LABS: Absolute Lymphocyte Count 1.58 X10^3/uL (0.83-4.51); Basophil# 0.02 X10^3/uL; Basophil% 0.2 % (0-1); Eosinophil# 0.03 X10^3/uL; Eosinophils% 0.4 % (0-5); Hematocrit 36.2 % (37-47); Hemoglobin 11.9 g/dL (12.0-15.0); Lymphocyte # 1.58 X10^3/ul (0.83-4.51); Lymphocyte % 18.7 % (19-41); Mean Corp Hgb Conc 32.9 g/dL (32-36); Mean Corpuscular Hgb 33.7 pg (27.0-32.0); Mean Corpuscular Volume 102.5 fL (81-99); Mean Platelet Vol. 10.7 fl (6.2-12.0); Monocyte# 0.82 X10^3/uL; Monocyte% 9.7 % (0-10); NRBC Flagged by Analyzer 0 % (0-5); Neutrophil # 5.97 X10^3/uL (2.7-7.7); Neutrophil % 70.5 % (47-70); Platelet Count 214 K/mm3 (150-450); RBC Distribution Width CV 13.6 % (11.6-14.6); RBC Distribution Width SD 51.2 fl (35.1-43.9); Red Blood Count 3.53 M/mm3 (4.2-5.4); White Blood Count 8.5 K/mm3 (4.4-11.0)
[2023-10-25 19:08] LABS: Anion Gap 10 (5-15); BUN 32 mg/dL (7-18); Calcium,Total 9.8 mg/dL (8.5-10.1); Chloride 97 mmol/L (98-107); Creatinine, Serum 1.28 mg/dL (0.55-1.02); EST Glomerular Filtration Rate 42 mL/min (>60); Est Glom Filt Rate - Afr Amer 50 mL/min (>60); Glucose 121 mg/dL (74-106); Potassium 5.2 mmol/L (3.5-5.1); Sodium Level 128 mmol/L (136-145); Troponin-I HS (w/2H Reflex) 47 pg/mL (3.0-54.0)
[2023-10-25 19:12] LABS: BNP,B-Type NATRIURETIC PEPTIDE 1081.7 pg/mL (0-100)
[2023-10-25] MEDS: Atropine Sulfate 1 MG/10 ML Syringe IV (20:11)
[2023-10-25 20:48] LABS: Reflex Troponin-HS? (from REC) Y
--- NOTE | 2023-10-25 20:58 | ED.RN ---
This RN called her family to let her know of the transport
== END 2023-10-25 21:01 | disposition short-term general hospital (02) ==
LOC: ED 18:53
PROVIDERS: Emergency Provider Emergency Medicine; PCP Physician Assistant; Visit Provider Emergency Medicine
DX: I44.2 Atrioventricular block, complete (principal); I11.0 Hypertensive heart disease with heart failure; I50.9 Heart failure, unspecified; R00.1 Bradycardia, unspecified; E87.1 Hypo-osmolality and hyponatremia; N28.9 Disorder of kidney and ureter, unspecified; R42 Dizziness and giddiness; E87.5 Hyperkalemia; M35.3 Polymyalgia rheumatica; F32.A Depression, unspecified; Z87.891 Personal history of nicotine dependence
CPT/HCPCS: 71045; 80048; 83735; 83880; 84484; 85025; 93005; 96361; 96374; 96376; 99285; J7030; A4216

== ENCOUNTER 2023-11-03 14:43 | Emergency (ER) | payer MEDICARE, SELFPAY ==
[2023-11-03] VITALS (11 sets, daily range): BP systolic 131–158; BP diastolic 68–83; PULSE 91–97; RESP 18–24; TEMP 36.4–37; O2SAT 92–98; BMI 31.8
--- NOTE | 2023-11-03 14:45 | RAD_ITS ---
EXAM: XR CHEST, 1 VIEW CLINICAL INDICATION: SOB TECHNIQUE: Frontal view of the chest. COMPARISON: 10/25/2023. FINDINGS: LUNGS AND PLEURAL SPACES: Unremarkable. No suspicious infiltrates, consolidation or edema. No pleural effusion. No pneumothorax. HEART: Cardiomegaly is unchanged. MEDIASTINUM: Central airways and mediastinal contour are unremarkable. BONES/JOINTS: Right metallic shoulder arthroplasty. No acute fracture. SOFT TISSUES: Unremarkable. TUBES, LINES AND DEVICES: Dual-chamber pacing lead tips are in the right atrium and right ventricle. RAD/Chest 1 View (Portable) IMPRESSION: 1. No pneumothorax or acute cardiopulmonary pathology following left subclavian approach ICD placement, dual chamber pacing lead tips are in the right atrium and right ventricle. 2. No significant interval change. Electronically Signed: Bartolo Resendiz MD at 15:45 EDT ,
--- NOTE | 2023-11-03 14:46 | EKG12_ITS ---
Test Reason : SOB Blood Pressure : / mmHG Vent. Rate : 099 BPM Atrial Rate : 099 BPM P-R Int : 224 ms QRS Dur : 098 ms QT Int : 322 ms P-R-T Axes : 064 -52 096 degrees QTc Int : 413 ms Atrial-sensed ventricular-paced rhythm with prolonged AV conduction Abnormal ECG Confirmed by JUDY WELSL, JENI ([id number]), editorial clerk WIN VIDAL ([id number]) on 11/06/2023 1:52:02 PM Referred By: Confirmed By:JENI KIM MD
[2023-11-03 15:03] LABS: Absolute Lymphocyte Count 1.35 X10^3/uL (0.83-4.51); Absolute Neutrophil Count 5.1 X10^3/uL (2.0-7.7); Basophil# 0.03 X10^3/uL; Basophil% 0.4 % (0-1); Eosinophil# 0.11 X10^3/uL; Eosinophils% 1.5 % (0-5); Hematocrit 33.5 % (37-47); Hemoglobin 10.7 g/dL (12.0-15.0); Lymphocyte # 1.35 X10^3/ul (0.83-4.51); Lymphocyte % 18.1 % (19-41); Mean Corp Hgb Conc 31.9 g/dL (32-36); Mean Corpuscular Volume 103.4 fL (81-99); Mean Platelet Vol. 9.1 fl (6.2-12.0); Monocyte# 0.87 X10^3/uL; Monocyte% 11.6 % (0-10); NRBC Flagged by Analyzer 0 % (0-5); Neutrophil # 5.08 X10^3/uL (2.7-7.7); Platelet Count 266 K/mm3 (150-450); RBC Distribution Width CV 13.6 % (11.6-14.6); RBC Distribution Width SD 51.9 fl (35.1-43.9); Red Blood Count 3.24 M/mm3 (4.2-5.4); White Blood Count 7.5 K/mm3 (4.4-11.0)
[2023-11-03 15:26] LABS: Anion Gap 6 (5-15); BUN 15 mg/dL (7-18); BUN/Creat Ratio 16.8 RATIO (10-20); Calcium,Total 9.6 mg/dL (8.5-10.1); Chloride 100 mmol/L (98-107); Creatinine, Serum 0.89 mg/dL (0.55-1.02); EST Glomerular Filtration Rate 63 mL/min (>60); Est Glom Filt Rate - Afr Amer 77 mL/min (>60); Glucose 134 mg/dL (74-106); Potassium 3.6 mmol/L (3.5-5.1); Sodium Level 136 mmol/L (136-145); Troponin-I HS 33 pg/mL (3.0-54.0)
[2023-11-03] MEDS: Ipratropium/Albuterol Sulfate 3 ML AMPUL.NEB INHALATION (19:23)
--- NOTE | 2023-11-03 19:31 | EDS_ITS ---
HPI <ISABELLA Hall - Last Filed: 11/03/23 21:38> History of Present Illness Chief Complaint: Shortness of Breath Narrative Narrative: Patient is an 88-year-old female who recently had a pacemaker placed at [facility] presenting to the emergency department for cough, sore throat, concern for sinusitis. Patient states that over the last 2 days, she is noticed that her sinuses have been more dry, she has a dry cough. She is unsure what she can take [id number] secondary to her recent pacemaker placed for full heart block. Patient was admitted here and transferred on 10/25/2023. Patient denies any fever or chills. PFS <ISABELLA Hall - Last Filed: 11/03/23 21:38> [facility] Medical History (Updated 11/03/23 @ 21:35 by ISABELLA Hall) Pacemaker Osteoporosis Anxiety Depression Urge incontinence Polymyalgia rheumatica Headache, unspecified Vitamin D deficiency Primary osteoarthritis Chronic pain Wears dentures Wears glasses History of steroid therapy Ambulates with cane Arthritis Hx of temporal arteritis Former smoker History of pain when walking History of stress test Hypertension Home Medications ?Medication ?Instructions ?Recorded ?Last Taken ?Type acetaminophen 650 mg 650 mg PO Q8H PRN pain 06/26/23 06/26/23 History tablet,extended release (8 Hour Pain Reliever) cholecalciferol (vitamin D3) 50 mcg PO DAILY 06/26/23 06/26/23 History multivitamin 1 tab PO DAILY 06/26/23 Unknown History apixaban 5 mg tablet (Eliquis) 5 mg PO BID 11/03/23 Unknown History aspirin 81 mg tablet,delayed 81 mg PO DAILY 11/03/23 Unknown History release (Adult Aspirin Regimen) azithromycin 250 mg tablet 250 mg PO DAILY #4 TABLETS 11/03/23 Unknown Rx benzonatate 100 mg capsule 100 mg PO TID PRN cough #20 caps 11/03/23 Unknown Rx furosemide 20 mg tablet (Lasix) 20 mg PO BID 11/03/23 Unknown History Allergy/AdvReac Type Severity Reaction Status Date / Time alendronate sodium (From Allergy Unknown unknown Verified 11/03/23 14:43 Fosamax) amoxicillin Allergy Unknown unknown Verified 11/03/23 14:43 Family History Father DVT (deep venous thrombosis) Brother Heart disease Son Heart disease Surgical History History of appendectomy Status post total right knee replacement Hx of total knee arthroplasty Hx of shoulder surgery Hx of colonoscopy Hx of shoulder surgery History of appendectomy History of arthroplasty of left knee Social History (Updated 06/26/23 @ 15:27 by Rufina Hernandez) household members: none Smoking Status: Never smoker alcohol intake: never substance use type: does not use ROS <ISABELLA Hall - Last Filed: 11/03/23 21:38> ROS ED ROS Narrative Constitutional: Negative for fever, chills, weight loss, weakness Eyes: Negative for vision loss, vision change, double vision ENT: Negative for any sore throat, ear pain, . Positive for congestion Cardiovascular: Negative for any chest pain, tightness, palpitations Respiratory: Negative for any sputum production, hemoptysis, orthopnea. Positive for cough. Positive for dyspnea, dyspnea on exertion Gastrointestinal: Negative for any abdominal pain, nausea, vomiting, diarrhea, constipation, blood in stool, blood in vomit : Negative for any urinary frequency, dysuria, retention, blood in urine Muscle skeletal: Negative for any neck pain, back pain Neurological: Negative for any headache, syncope, dizziness Skin: Negative for any rashes, itching, abrasions, lacerations Psychiatric: Negative for any depression, anxiety, stress, suicidal ideation, homicidal ideation Hematologic: Negative for any excessive bruising, easy bleeding EXAM <ISABELLA Hall - Last Filed: 11/03/23 21:38> Physical Exam Narrative Exam Narrative: Vital signs reviewed. HEET: Head normocephalic atraumatic, TMs clear bilaterally. Posterior pharynx is clear, moist mucous membranes. Nasal mucosa slightly red, slight drainage. Neck: Supple with no lymphadenopathy or tenderness. No signs of meningismus. Cardiac: Regular rate and rhythm no murmurs gallops or rubs, equal peripheral pulses bilaterally. Respiratory: Lungs clear to auscultation bilaterally. No chest tenderness. Abdomen: Soft, nontender, nondistended. No abdominal bruit or pulsatile masses. No hepatosplenomegaly Extremities: No peripheral edema, no signs of gross trauma or deformity. Active full range of motion of all extremities. Neuro: Cranial nerves II through XII intact, no focal neurological deficits. Skin: Clean dry and intact with no rash, purpura, petechiae, vesicles or pustules. Backs/flank: No CVA tenderness, no midline spinal tenderness, no deformity. Psych: Normal mood and affect. No SI, HI or acute psychosis. Const Vital Signs: 11/03/23 14:43 11/03/23 14:45 11/03/23 14:46 Temperature 97.5 F L 97.5 F L Temperature Source Temporal Temporal Pulse Rate 92 92 Respiratory Rate 18 18 Respiratory Effort Respiratory Depth Respiratory Pattern Blood Pressure 131/76 H 131/76 H Blood Pressure Mean 94 94 Pulse Ox 97 97 Oxygen Delivery Method Room Air Room Air Room Air 11/03/23 14:46 11/03/23 16:43 11/03/23 18:00 Temperature Temperature Source Pulse Rate 91 95 Respiratory Rate 20 H 21 H Respiratory Effort Respiratory Depth Respiratory Pattern Blood Pressure 158/78 H 153/83 H Blood Pressure Mean 104 106 Pulse Ox 94 98 95 Oxygen Delivery Method Room Air Room Air Room Air 11/03/23 19:27 11/03/23 20:00 11/03/23 20:45 Temperature 98.6 F Temperature Source Oral Pulse Rate 96 91 97 Respiratory Rate 18 18 24 H Respiratory Effort Respiratory Depth Respiratory Pattern Blood Pressure 149/68 H 149/68 H Blood Pressure Mean 95 95 Pulse Ox 92 93 Oxygen Delivery Method Room Air 11/03/23 20:46 11/03/23 21:48 Temperature 97.9 F Temperature Source Pulse Rate 96 Respiratory Rate 18 Respiratory Effort Normal Respiratory Depth Normal Respiratory Pattern Normal Blood Pressure 137/72 H Blood Pressure Mean 93 Pulse Ox 93 Oxygen Delivery Method Room Air <Dr. Pop Massey, DO - Last Filed: 11/04/23 00:35> Physical Exam Const Vital Signs: 11/03/23 14:43 11/03/23 14:45 11/03/23 14:46 Temperature 97.5 F L 97.5 F L Temperature Source Temporal Temporal Pulse Rate 92 92 Respiratory Rate 18 18 Respiratory Effort Respiratory Depth Respiratory Pattern Blood Pressure 131/76 H 131/76 H Blood Pressure Mean 94 94 Pulse Ox 97 97 Oxygen Delivery Method Room Air Room Air Room Air 11/03/23 14:46 11/03/23 16:43 11/03/23 18:00 Temperature Temperature Source Pulse Rate 91 95 Respiratory Rate 20 H 21 H Respiratory Effort Respiratory Depth Respiratory Pattern Blood Pressure 158/78 H 153/83 H Blood Pressure Mean 104 106 Pulse Ox 94 98 95 Oxygen Delivery Method Room Air Room Air Room Air 11/03/23 19:27 11/03/23 20:00 11/03/23 20:45 Temperature 98.6 F Temperature Source Oral Pulse Rate 96 91 97 Respiratory Rate 18 18 24 H Respiratory Effort Respiratory Depth Respiratory Pattern Blood Pressure 149/68 H 149/68 H Blood Pressure Mean 95 95 Pulse Ox 92 93 Oxygen Delivery Method Room Air 11/03/23 20:46 11/03/23 21:48 Temperature 97.9 F Temperature Source Pulse Rate 96 Respiratory Rate 18 Respiratory Effort Normal Respiratory Depth Normal Respiratory Pattern Normal Blood Pressure 137/72 H Blood Pressure Mean 93 Pulse Ox 93 Oxygen Delivery Method Room Air [facility] <ISABELLA Hall - Last Filed: 11/03/23 21:38> [facility] Lab Data Labs: Laboratory Results - last 24 hr 11/03/23 14:55 WBC 7.5 RBC 3.24 L Hgb 10.7 L Hct 33.5 L MCV 103.4 H MCH 33.0 H MCHC 31.9 L RDW Std Deviation 51.9 H RDW Coeff of Salo 13.6 Plt Count 266 MPV 9.1 Immature Gran % (Auto) 0.400 Neut % (Auto) 68.0 Lymph % (Auto) 18.1 L [place] % (Auto) 11.6 H Eos % (Auto) 1.5 Baso % (Auto) 0.4 Absolute Neuts (auto) 5.1 Absolute Lymphs (auto) 1.35 Nucleated RBC % 0 Sodium 136 Potassium 3.6 Chloride 100 Carbon Dioxide 30.0 Anion Gap 6 BUN 15 Creatinine 0.89 Est GFR (MDRD) Af Amer 77 Est GFR (MDRD) Non-Af 63 BUN/Creatinine Ratio 16.8 Glucose 134 H Calcium 9.6 Troponin I High Sens 33 B-Natriuretic Peptide 421.3 H Radiography Diagnostic Testing: Clinical Impression(s) from Imaging Studies Chest X-Ray 11/03/23 14:45 IMPRESSION: 1. No pneumothorax or acute cardiopulmonary pathology following left subclavian approach ICD placement, dual chamber pacing lead tips are in the right atrium and right ventricle. 2. No significant interval change. Electronically Signed: Bartolo Resendiz MD at 15:45 EDT , EKG EKG shows atrial sensed ventricular paced rhythm: Attestation: I personally reviewed and interpreted this EKG as follows: Comments: Paced rhythm, rate 99 bpm, [place] interval 224 ms, QRS duration 98 ms, no acute ST elevation, no acute infarct noted. Treatment and Re-Evaluation :: Differential diagnosis includes however is not limited to: CHF exacerbation, ACS, DC, community-acquired pneumonia, viral syndrome Patient appears generally well, vital signs are stable, patient is nontoxic- appearing. Presenting to the emergency department for a cough, nasal congestion, concerns since recent pacemaker placed.Patient's laboratory values show slight anemia with a hemoglobin 10.7, this is negative. Patient's chemistries were unremarkable. Patient is a troponin was 33 which is negative. Chest x-ray showed no pneumothorax or acute cardiopulmonary pathology. No significant interval change. Patient responded well to breathing treatments. Patient was able to ambulate and did not drop her oxygen saturation. Negative for any COVID-19 influenza RSV. At this time, patient be discharged home. Patient will be started on azithromycin, given her first dose here, 250 mg daily for 4 more days. She will given Tessalon Perles. Patient instructed return for any worsening symptoms. Stable for discharge <Dr. Pop Massey, DO - Last Filed: 11/04/23 00:35> [facility] Lab Data Labs: Laboratory Results - last 24 hr 11/03/23 14:55 WBC 7.5 RBC 3.24 L Hgb 10.7 L Hct 33.5 L MCV 103.4 H MCH 33.0 H MCHC 31.9 L RDW Std Deviation 51.9 H RDW Coeff of Salo 13.6 Plt Count 266 MPV 9.1 Immature Gran % (Auto) 0.400 Neut % (Auto) 68.0 Lymph % (Auto) 18.1 L [place] % (Auto) 11.6 H Eos % (Auto) 1.5 Baso % (Auto) 0.4 Absolute Neuts (auto) 5.1 Absolute Lymphs (auto) 1.35 Nucleated RBC % 0 Sodium 136 Potassium 3.6 Chloride 100 Carbon Dioxide 30.0 Anion Gap 6 BUN 15 Creatinine 0.89 Est GFR (MDRD) Af Amer 77 Est GFR (MDRD) Non-Af 63 BUN/Creatinine Ratio 16.8 Glucose 134 H Calcium 9.6 Troponin I High Sens 33 B-Natriuretic Peptide 421.3 H Radiography Diagnostic Testing: Clinical Impression(s) from Imaging Studies Chest X-Ray 11/03/23 14:45 IMPRESSION: 1. No pneumothorax or acute cardiopulmonary pathology following left subclavian approach ICD placement, dual chamber pacing lead tips are in the right atrium and right ventricle. 2. No significant interval change. Electronically Signed: Bartolo Resendiz MD at 15:45 EDT , Treatment and Re-Evaluation :: Differential diagnosis includes however is not limited to: CHF exacerbation, ACS, DC, community-acquired pneumonia, viral syndrome Patient appears generally well, vital signs are stable, patient is nontoxic- appearing. Presenting to the emergency department for a cough, nasal congestion, concerns since recent pacemaker placed.Patient's laboratory values show slight anemia with a hemoglobin 10.7, this is negative. Patient's chemistries were unremarkable. Patient is a troponin was 33 which is negative. Chest x-ray showed no pneumothorax or acute cardiopulmonary pathology. No significant interval change. Patient responded well to breathing treatments. Patient was able to ambulate and did not drop her oxygen saturation. Negative for any COVID-19 influenza RSV. At this time, patient be discharged home. Patient will be started on azithromycin, given her first dose here, 250 mg daily for 4 more days. She will given Tessalon Perles. Patient instructed return for any worsening symptoms. Stable for discharge ED attending note: I evaluated the patient in conjunction with the FABIO. I agree with his/her statements and above findings. I have personally performed a face to face assessment of the patient and have reviewed the FABIO Note. I performed a substantive portion of the visit including all aspects of the following. I personally saw the patient performed chart review, physical exam, reviewed labs, imaging (if obtained), and formulated a treatment and management plan. This note was generated with [employer] software. It may contain incorrect words, spelling, and punctuation that were not noted in review of the chart prior to signing. Discharge Plan Triage Chief Complaint: Shortness of Breath ED Midlevel Provider: John Paul Woods ED Provider: Pop Massey Dx/Rx/DC Orders Clinical Impression: Cough, Sinusitis Instructions: ED Sinusitis (Antibiotic Treatment) Prescriptions: New benzonatate 100 mg capsule 100 mg PO TID PRN (Reason: cough) Qty: 20 0RF azithromycin 250 mg tablet 250 mg PO DAILY Qty: 4 0RF No Action acetaminophen [8 Hour Pain Reliever] 650 mg tablet extended release 650 mg PO Q8H PRN (Reason: pain) multivitamin Tablet 1 tab PO DAILY cholecalciferol (vitamin D3) 50 mcg PO DAILY Patient Comments: PT UNSURE OF DOSAGE Eliquis 5 mg tablet 5 mg PO BID aspirin [Adult Aspirin Regimen] 81 mg tablet,delayed release (DR/EC) 81 mg PO DAILY furosemide [Lasix] 20 mg tablet 20 mg PO BID Primary Care Provider: Quoc Landry Referrals: Quoc Landry PA [Primary Care Provider] - Activity Restrictions/Additional Instructions: Please follow-up outpatient. Print Language: Faroese Disposition Disposition: Home, Self Care Discharge Date/Time: 11/03/23 22:01
[2023-11-03 21:45] LABS: BNP,B-Type NATRIURETIC PEPTIDE 421.3 pg/mL (0-100)
[2023-11-03] MEDS: Azithromycin 250 MG Tablet 500 MG PO (21:51)
== END 2023-11-03 22:01 | disposition home or self-care (01) ==
PROVIDERS: Nurse Practitioner; Emergency Provider Emergency Medicine; PCP Physician Assistant; Visit Provider Emergency Medicine
DX: J32.9 Chronic sinusitis, unspecified (principal); R05.9 Cough, unspecified; I10 Essential (primary) hypertension; Z11.52 Encounter for screening for COVID-19; Z95.0 Presence of cardiac pacemaker; Z79.82 Long term (current) use of aspirin; Z79.01 Long term (current) use of anticoagulants; Z79.899 Other long term (current) drug therapy
CPT/HCPCS: 71045; 80048; 83880; 84484; 85025; 87631; 93005; 94640; 94760; 99283; A4216